=== PATIENT | male | born 1985 | race Caucasian/White ===

== ENCOUNTER 2017-04-10 22:51 | Emergency (ER) | payer OTHER ==
[~2017-04-10] VITALS: Ht 175.3 cm; Wt 90.0 kg
[2017-04-10 23:12] VITALS: TEMP 36.7; Ht 175.3 cm; Wt 90.0 kg
[2017-04-11] MEDS ORDERED: DiphenhydrAMINE HCL 50 MG/ML VIAL IV STA (00:28)
--- NOTE | 2017-04-11 00:30 | EMERGENCY ROOM VISIT NOTE ---
History Report prepared by Reed: Guido Ansari Under the Supervision of: Dr. Yamilex Caballero M.D. First contact with patient: 00:07 Chief Complaint: RECTAL BLEEDING Stated Complaint: ABDOMINAL PAIN, RECTAL BLEEDING History of Present Illness The patient is a 32 year old male who presents to the Emergency Room with complaints of intermittent rectal bleeding since yesterday. The patient states that every time that he has a bowel movement he has rectal bleeding, and he has been having watery stools. He states that he has a history of a total colectomy in 2013, and he has had J pouch surgeries, and the last one was in February. The patient states that he additionally is having abdominal pain for the past couple of days. The patient states that yesterday he passed a surgical staple in his bowel movement, and this is the third tome that this has happened. He states that his bowels have been chronically dilated, and his surgeons are trying to currently to relax his bowels. The patient states that his most recent hemoglobin was 8.4, and he states that he is not currently on blood thinners. He states that he has had a transfusion before after having bleeding from his ileostomy. The patient is denying any recent fevers. He states that he is currently on TPN. Source of History: patient Onset: yesterday Position: other (rectum) Quality: other (bleeding) Timing: intermittent Associated Symptoms: + abdominal pain, No fevers Review of Systems See HPI for pertinent positives & negatives. A total of 10 systems reviewed and were otherwise negative. Past Medical & Surgical Medical Problems: (1) On total parenteral nutrition (TPN) Surgical Problems: (1) H/O total colectomy Social History Smoking Status: Never Smoker Marital Status: single Occupation Status: unemployed Current/Historical Medications Scheduled Tpn Infusion (Tpn Infusion), 1 EA IV DAILY Allergies Coded Allergies: Mushroom (Verified Allergy, Severe, ANAPHYLAXIS, 04/11/17) Adhesives (Verified Allergy, Intermediate, RASH, 04/11/17) Physical Exam Vital Signs Date Time Temp Pulse Resp B/P (MAP) Pulse Ox O2 Delivery O2 Flow Rate FiO2 04/11/17 03:37 80 16 123/74 97 04/11/17 02:42 81 16 120/62 97 Room Air 04/11/17 01:41 94 16 113/68 99 Room Air 04/11/17 00:46 94 16 113/77 98 Room Air 04/10/17 23:12 36.7 95 18 145/93 99 Room Air Physical Exam Vital signs reviewed. General: Well-appearing male, in no significant distress. He has a TPN pump. HEENT: No scleral icterus, PERRLA, neck supple. Atraumatic. Cardiovascular: Regular rate and rhythm, no extra sounds. Pulmonary: Clear to auscultation bilaterally, normal work of breathing. Abdomen: Some post-surgical changes to the abdominal wall. Mildly tender to the right lower quadrant. Soft, nondistended, positive bowel sounds. Musculoskeletal: Atraumatic, no peripheral edema. Neurologic: Patient awake alert and oriented x 3 Skin: Warm, dry, no rash Medical Decision & Procedures Laboratory Results 04/11/17 00:34 Red Blood Count 3.42, Mean Corpuscular Volume 78.1, Mean Corpuscular Hemoglobin 24.6, Mean Corpuscular Hemoglobin Concent 31.5, Mean Platelet Volume 9.2, Neutrophils (%) (Auto) 60.3, Lymphocytes (%) (Auto) 26.9, Monocytes (%) (Auto) 10.1, Eosinophils (%) (Auto) 1.7, Basophils (%) (Auto) 0.6, Neutrophils # (Auto ) 4.97, Lymphocytes # (Auto) 2.21, Monocytes # (Auto) 0.83, Eosinophils # (Auto ) 0.14, Basophils # (Auto) 0.05 04/11/17 00:34 Test 04/11/17 00:34 04/11/17 01:26 White Blood Count 8.23 K/uL (4.8-10.8) Red Blood Count 3.42 M/uL (4.7-6.1) Hemoglobin 8.4 g/dL (14.0-18.0) Hematocrit 26.7 % (42-52) Mean Corpuscular Volume 78.1 fL (80-100) Mean Corpuscular Hemoglobin 24.6 pg (25-34) Mean Corpuscular Hemoglobin Concent 31.5 g/dl (32-36) Platelet Count 394 K/uL (130-400) Mean Platelet Volume 9.2 fL (7.4-10.4) Neutrophils (%) (Auto) 60.3 % Lymphocytes (%) (Auto) 26.9 % Monocytes (%) (Auto) 10.1 % Eosinophils (%) (Auto) 1.7 % Basophils (%) (Auto) 0.6 % Neutrophils # (Auto) 4.97 K/uL (1.4-6.5) Lymphocytes # (Auto) 2.21 K/uL (1.2-3.4) Monocytes # (Auto) 0.83 K/uL (0.11-0.59) Eosinophils # (Auto) 0.14 K/uL (0-0.5) Basophils # (Auto) 0.05 K/uL (0-0.2) RDW Standard Deviation 41.5 fL (36.4-46.3) RDW Coefficient of Variation 14.5 % (11.5-14.5) Immature Granulocyte % (Auto) 0.4 % Immature Granulocyte # (Auto) 0.03 K/uL (0.00-0.02) Polychromasia 1+ Anion Gap 6.0 mmol/L (3-11) Est Creatinine Clear Calc Drug Dose 151.7 ml/min Estimated GFR () 139.7 Estimated GFR (Non- 120.5 BUN/Creatinine Ratio 17.2 (10-20) Calcium Level 8.8 mg/dl (8.5-10.1) Total Bilirubin 0.4 mg/dl (0.2-1) Direct Bilirubin < 0.1 mg/dl (0-0.2) Aspartate Amino Transf (AST/SGOT) 9 U/L (15-37) Alanine Aminotransferase (ALT/SGPT) 23 U/L (12-78) Alkaline Phosphatase 96 U/L (45-117) Total Protein 7.7 gm/dl (6.4-8.2) Albumin 3.5 gm/dl (3.4-5.0) Lipase 73 U/L (73-393) Stool Occult Blood POSITIVE (NEGATIVE) Laboratory results per my review. Medications Administered Medications (Trade) Dose Ordered Sig/Tiffany Route Start Time Stop Time Status Last Admin Dose Admin Diphenhydramine HCl (Benadryl Inj) 25 mg NOW STAT IV 04/11/17 00:28 04/11/17 00:29 DC 04/11/17 00:44 25 MG Morphine Sulfate (MoRPHine SULFATE INJ) 4 mg NOW STAT IV 04/11/17 01:37 2/1/18 01:38 DC 04/11/17 01:43 4 MG Ondansetron HCl (Zofran Inj) 4 mg NOW STAT IV 04/11/17 01:37 04/11/17 01:38 DC 04/11/17 01:42 4 MG ECG Indication: abdominal pain Rate (beats per minute): 83 Rhythm: normal sinus, other (Sinus arrhythmia) Findings: no acute ischemic change, no ectopy Change: Patient's electrocardiogram interpreted by me. ED Course 0020: Past medical records reviewed. The patient was evaluated in room C12. A complete history and physical examination was performed. 0028: Benadryl 25mg IV 0137: Zofran 4mg IV, Morphine Sulfate 4mg IV 0316: Upon reevaluation, the patient appeared to have improvement of his symptoms. I discussed findings with him. He verbalized agreement of the treatment plan. He was discharged home. Medical Decision Differential diagnosis include: anastomotic leak, intraabdominal abscess, GI bleed, acute on chronic pain, C Diff, and inflammatory bowel disease. This patient was evaluated and appeared to be in no significant distress. IV access was obtained and laboratory work was drawn. The patient's medical history is complicated. Documentation from his previous hospitalization was reviewed. Patient's laboratory work today reveals a hemoglobin of 8.4. This is similar to previous. The patient does have guaiac positive stools however this is well documented and has been evaluated previously. The patient's family states he has had many CT scans in the past. He does have some mild tenderness however he states this is pain he has experienced previously. The patient has started with a new gastroenterology and colorectal surgery service at [facility]. He has had multiple narcotic and benzodiazepine prescriptions written this year. I do feel he is stable at this time as he is afebrile with a normal white blood cell count. A stool was sent for testing and is negative for C. difficile. Cultures are pending. The patient has requested discharge. He did receive IV morphine and Zofran per his request. He did request additional pain shot prior to discharge however this was declined. I do have concerns regarding this patient's multiple physician consultations. We have not seen this patient previously and he is familiar to both [place] and [facility]. This time I feel he is stable and he was discharged to his father's care. He was advised to return to the ER for worsening of symptoms or any medical concerns. [place] Drug Monitoring Program Search Results: patient reviewed within database Drug Monitoring Findings: The patient got 2 prescriptions for Valium in March. He had multiple prescriptions filled in 2016, and he got a Dilaudid prescription on March 08 Medication Reconcilliation Current Medication List: was personally reviewed by me Blood Pressure Screening Patient's blood pressure: Normal blood pressure Impression Primary Impression: Abdominal pain Additional Impression: Rectal bleeding Scribe Attestation The scribe's documentation has been prepared under my direction and personally reviewed by me in its entirety. I confirm that the note above accurately reflects all work, treatment, procedures, and medical decision making performed by me. Departure Information Dispostion Home / Self-Care Referrals Jamison Mosley M.D. (PCP) Forms HOME CARE DOCUMENTATION FORM, IMPORTANT VISIT INFORMATION, WORK / SCHOOL INSTRUCTIONS Patient Instructions My [facility] [employer] Additional Instructions Diagnosis: Rectal bleeding, abdominal pain Please monitor for significant blood loss by rectum. Call your analysis director later this morning to arrange close follow-up. Continue your medications as prescribed. Return to the emergency department for worsening of symptoms or any medical concerns. Problem Qualifiers
[2017-04-11 00:44] LABS: BASO % 0.6 %; BASO ABS # 0.05 K/uL (0-0.2); EOS % 1.7 %; EOS ABS # 0.14 K/uL (0-0.5); HEMATOCRIT 26.7 % (42-52); HEMOGLOBIN 8.4 g/dL (14.0-18.0); IG# 0.03 K/uL (0.00-0.02); LYMPH % 26.9 %; LYMPH ABS # 2.21 K/uL (1.2-3.4); MEAN CELL VOLUME 78.1 fL (80-100); MEAN CORPUSCULAR HEMOGLOBIN 24.6 pg (25-34); MEAN CORPUSCULAR HGB CONC 31.5 g/dl (32-36); MEAN PLATELET VOLUME 9.2 fL (7.4-10.4); MONO % 10.1 %; MONO ABS # 0.83 K/uL (0.11-0.59); NEUT % 60.3 %; NEUT ABS # 4.97 K/uL (1.4-6.5); PLATELET COUNT 394 K/uL (130-400); RED CELL DISTRIBUTION WIDTH CV 14.5 % (11.5-14.5); RED CELL DISTRIBUTION WIDTH SD 41.5 fL (36.4-46.3); WHITE BLOOD COUNT 8.23 K/uL (4.8-10.8)
[2017-04-11 01:01] LABS: ALBUMIN 3.5 gm/dl (3.4-5.0); ALT/SGPT 23 U/L (12-78); AST/SGOT 9 U/L (15-37); BLOOD UREA NITROGEN 14 mg/dl (7-18); CALCIUM 8.8 mg/dl (8.5-10.1); CARBON DIOXIDE 26 mmol/L (21-32); CREATININE 0.79 mg/dl (0.60-1.40); GLUCOSE 82 mg/dl (70-99); LIPASE 73 U/L (73-393); POTASSIUM 3.7 mmol/L (3.5-5.1); SODIUM 138 mmol/L (136-145)
[2017-04-11 01:04] LABS: ALKALINE PHOSPHATASE 96 U/L (45-117); TOTAL PROTEIN 7.7 gm/dl (6.4-8.2)
[2017-04-11] MEDS ORDERED: MoRPHine SULFATE 4 MG/ML 1 ML CARP\\VIAL IV STA (01:37)
[2017-04-11] MEDS ORDERED: ONDANSETRON INJ 2 MG/ML 2 ML VIAL IV STA (01:37)
[2017-04-11] MEDS ORDERED: TPN IV (02:04)
[2017-04-11 03:37] VITALS: BP 123/74; PULSE 80; O2SAT 97
== END 2017-04-11 03:37 | disposition home or self-care (01) ==
LOC: C.EDB 22:53
DX: R10.9 Unspecified abdominal pain (principal); K62.5 Hemorrhage of anus and rectum

== ENCOUNTER 2017-04-16 18:56 | Emergency (ER) | payer OTHER ==
[~2017-04-16] VITALS: Ht 175.3 cm; Wt 87.0 kg
[~2017-04-16 18:56] MED LIST: TPN IV
[2017-04-16 19:08] VITALS: TEMP 36.7; Ht 175.3 cm; Wt 87.0 kg
[2017-04-16] MEDS ORDERED: MoRPHine SULFATE 4 MG/ML 1 ML CARP\\VIAL IV STA ×2 (19:29→22:31)
[2017-04-16] MEDS ORDERED: DiphenhydrAMINE HCL 50 MG/ML VIAL IV STA (19:29)
[2017-04-16] MEDS ORDERED: SODIUM CHLORIDE 0.9% 1000ML 1,000 ML IV STA (19:29)
[2017-04-16] MEDS ORDERED: ONDANSETRON INJ 2 MG/ML 2 ML VIAL IV STA (19:29)
--- NOTE | 2017-04-16 19:31 | EMERGENCY ROOM VISIT NOTE ---
History Report prepared by Reed: Gulshan Richard Under the Supervision of: Dr. Olaf Travis M.D. First contact with patient: 19:21 Chief Complaint: GI ASSESSMENT Stated Complaint: ABDOMINAL PAIN RECTAL BLEEDING History of Present Illness The patient is a 32 year old male who presents to the Emergency Room with complaints of intermittent rectal bleeding beginning a month ago. The patient states that he has a history of Crohn's disease, and had surgery on February, to have a J pouch placed and his ileostomy taken out. He notes that since then, he has been intermittently bleeding rectally. He reports that his hemoglobin was 8.4 the last time it was checked. He also complains of abdominal pain, lightheadedness, nausea, and dilated bowels. He denies any fever, vomiting , and trauma. He reports that he passed a surgical staple a week ago and takes TPN every day. The patient states that he has had a PICC line in place for the past few weeks. Source of History: patient Onset: a month ago Position: other (rectum) Quality: other (bleeding) Timing: intermittent Associated Symptoms: + nausea, + abdominal pain, No fevers, No vomiting Note: He notes that his hemoglobin was 8.4 when it was last checked. He also complains of lightheadedness and dilated bowels. He denies any trauma. Review of Systems See HPI for pertinent positives & negatives. A total of 10 systems reviewed and were otherwise negative. Past Medical & Surgical Medical Problems: (1) Crohns disease (2) On total parenteral nutrition (TPN) (3) PICC (peripherally inserted central catheter) in place Surgical Problems: (1) H/O total colectomy Old medical records were reviewed. Nurse's notes were reviewed and I agree with. Family History No pertinent family history stated. Social History Smoking Status: Never Smoker Marital Status: single Occupation Status: unemployed Current/Historical Medications Scheduled Tpn Infusion (Tpn Infusion), 1 EA IV DAILY Allergies Coded Allergies: Mushroom (Verified Allergy, Severe, ANAPHYLAXIS, 04/16/17) Adhesives (Verified Allergy, Intermediate, RASH, 04/16/17) Physical Exam Vital Signs Date Time Temp Pulse Resp B/P (MAP) Pulse Ox O2 Delivery O2 Flow Rate FiO2 04/16/17 23:11 94 125/74 98 04/16/17 21:58 71 117/64 99 Room Air 04/16/17 20:15 74 104/63 100 04/16/17 19:08 36.7 102 18 121/71 97 Room Air Physical Exam General: Non-ill appearing young male in no acute distress. HEENT: Normal cephalic atraumatic. Pupils are equal round and reactive to light. Extraocular movements are intact. Oropharynx is pink with moist mucous membranes. No swelling of the mouth lips or tongue. Neck: Supple with a midline trachea. No meningeal signs or stiffness, no JVD or bruits. No Stridor. Chest: Clear to auscultation bilaterally. No wheezes or rhonchi. No increased work of breathing. Heart: regular rate and rhythm. Abdomen: Soft, nondistended without rebound guarding or rigidity. Well healing surgical incision, moderately diffusely tender, no peritonitis. Extremities: No cyanosis clubbing or edema. No calf tenderness or assymetry. PICC line in left arm, not red or swollen. Spine/Back. Non tender to palpation. No CVA tenderness Skin: Good turgor without rashes. Neurologic exam: Cranial nerves two through 12 are intact. Motor and sensation are intact and symmetrical throughout. Medical Decision & Procedures Laboratory Results 04/16/17 19:42 Red Blood Count 3.65, Mean Corpuscular Volume 76.7, Mean Corpuscular Hemoglobin 24.4, Mean Corpuscular Hemoglobin Concent 31.8, Mean Platelet Volume 9.1, Neutrophils (%) (Auto) 60.8, Lymphocytes (%) (Auto) 26.7, Monocytes (%) (Auto) 9.5, Eosinophils (%) (Auto) 2.1, Basophils (%) (Auto) 0.6, Neutrophils # (Auto) 4.31, Lymphocytes # (Auto) 1.89, Monocytes # (Auto) 0.67, Eosinophils # (Auto) 0.15, Basophils # (Auto) 0.04 04/16/17 19:42 Test 04/16/17 19:42 White Blood Count 7.08 K/uL (4.8-10.8) Red Blood Count 3.65 M/uL (4.7-6.1) Hemoglobin 8.9 g/dL (14.0-18.0) Hematocrit 28.0 % (42-52) Mean Corpuscular Volume 76.7 fL (80-100) Mean Corpuscular Hemoglobin 24.4 pg (25-34) Mean Corpuscular Hemoglobin Concent 31.8 g/dl (32-36) Platelet Count 397 K/uL (130-400) Mean Platelet Volume 9.1 fL (7.4-10.4) Neutrophils (%) (Auto) 60.8 % Lymphocytes (%) (Auto) 26.7 % Monocytes (%) (Auto) 9.5 % Eosinophils (%) (Auto) 2.1 % Basophils (%) (Auto) 0.6 % Neutrophils # (Auto) 4.31 K/uL (1.4-6.5) Lymphocytes # (Auto) 1.89 K/uL (1.2-3.4) Monocytes # (Auto) 0.67 K/uL (0.11-0.59) Eosinophils # (Auto) 0.15 K/uL (0-0.5) Basophils # (Auto) 0.04 K/uL (0-0.2) RDW Standard Deviation 41.4 fL (36.4-46.3) RDW Coefficient of Variation 14.5 % (11.5-14.5) Immature Granulocyte % (Auto) 0.3 % Immature Granulocyte # (Auto) 0.02 K/uL (0.00-0.02) Polychromasia 1+ Anisocytosis PRESENT Prothrombin Time 10.9 SECONDS (9.0-12.0) Prothromb Time International Ratio 1.0 (0.9-1.1) Activated Partial Thromboplast Time 24.9 SECONDS (21.0-31.0) Partial Thromboplastin Ratio 1.0 Anion Gap 9.0 mmol/L (3-11) Est Creatinine Clear Calc Drug Dose 157.3 ml/min Estimated GFR () 142.7 Estimated GFR (Non- 123.1 BUN/Creatinine Ratio 16.2 (10-20) Calcium Level 9.6 mg/dl (8.5-10.1) Total Bilirubin 0.8 mg/dl (0.2-1) Direct Bilirubin 0.2 mg/dl (0-0.2) Aspartate Amino Transf (AST/SGOT) 14 U/L (15-37) Alanine Aminotransferase (ALT/SGPT) 29 U/L (12-78) Alkaline Phosphatase 106 U/L (45-117) Total Protein 8.5 gm/dl (6.4-8.2) Albumin 3.9 gm/dl (3.4-5.0) Lipase 79 U/L (73-393) Laboratory studies as stated above per my review. Medications Administered Medications (Trade) Dose Ordered Sig/Tiffany Route Start Time Stop Time Status Last Admin Dose Admin Sodium Chloride 1,000 ml @ 999 mls/hr Q1H1M STAT IV 04/16/17 19:29 04/16/17 20:29 DC 04/16/17 19:29 999 MLS/HR Ondansetron HCl (Zofran Inj) 4 mg NOW STAT IV 04/16/17 19:29 04/16/17 19:31 DC 04/16/17 19:49 4 MG Morphine Sulfate (MoRPHine SULFATE INJ) 4 mg NOW STAT IV 04/16/17 19:29 04/16/17 19:31 DC 04/16/17 19:49 4 MG Diphenhydramine HCl (Benadryl Inj) 25 mg NOW STAT IV 04/16/17 19:29 04/16/17 19:31 DC 04/16/17 19:49 25 MG Morphine Sulfate (MoRPHine SULFATE INJ) 4 mg NOW STAT IV 04/16/17 22:31 04/16/17 22:32 DC 04/16/17 22:51 4 MG ED Course 1921: Past medical records reviewed. The patient was evaluated in room A12, and a complete history and physical examination were performed. 1928: Benadryl Inj 25mg IV, Morphine Sulfate 4mg IV, Zofran Inj 4mg IV, Sodium Chloride 1000 ml @ 999 mls/hr IV 2009: I rechecked the patient. He is resting comfortably. 2230: Morphine Sulfate 4mg IV 2231: I reevaluated and updated the patient. He refuses a rectal exam and wants to go home. I offered to call Bryan, but the patient declined. 0: Upon reevaluation, the patient is stable. I discussed the results and treatment plan with him. He verbalized agreement of the treatment plan. The patient was discharged home. Medical Decision Differential diagnoses include: GI bleed, anemia, Crohn's complication, and post op complications. This patient comes in as described above. He has a history of Crohn's disease with recent surgery. Since the surgery he's had intermittent rectal bleeding. He was seen here about a month ago and had a hemoglobin 8.3. He looks well on exam and has stable vital signs. He has no evidence to suggest wound infection. He did decline a rectal exam. He has a PICC line his left arm and blood work was obtained. He has no white count or fever to suggest infection. His hemoglobin is 8.9 which is slightly up for him. He has no acute electrolyte or metabolic abnormalities. She did receive IV Benadryl as he says he gets this as he is allergic monitor leads. He also received IV morphine and IV Zofran and is feeling much better. His abdomen remained benign. He did receive additional IV morphine prior to discharge as per his request. I talked to him at length he strongly desires to go home. He says he is reassured that his hemoglobin is 8.9. I offered to try to talk to Annette who is in the process of seen him but he declined. I encouraged him to follow his regular doctor next 1-2 days and return if: increasing pain or bleeding, worsening symptoms, any new problems concerns. Medication Reconcilliation Current Medication List: was personally reviewed by me Blood Pressure Screening Patient's blood pressure: Normal blood pressure Blood pressure disposition: Did not require urgent referral Impression Primary Impression: Rectal bleeding Additional Impression: Crohns disease Scribe Attestation The scribe's documentation has been prepared under my direction and personally reviewed by me in its entirety. I confirm that the note above accurately reflects all work, treatment, procedures, and medical decision making performed by me. Departure Information Dispostion Home / Self-Care Referrals Jamison Mosley M.D. (PCP) Forms HOME CARE DOCUMENTATION FORM, IMPORTANT VISIT INFORMATION Patient Instructions My [facility] Additional Instructions Rest. Drink plenty of fluids. Return if: Increasing pain or bleeding, worsening symptoms, lightheadedness or dizziness, any new problems or concerns Follow-up with your doctor tomorrow for recheck Problem Qualifiers
[2017-04-16 20:01] LABS: BASO % 0.6 %; BASO ABS # 0.04 K/uL (0-0.2); EOS % 2.1 %; EOS ABS # 0.15 K/uL (0-0.5); HEMOGLOBIN 8.9 g/dL (14.0-18.0); IG# 0.02 K/uL (0.00-0.02); LYMPH % 26.7 %; LYMPH ABS # 1.89 K/uL (1.2-3.4); MEAN CELL VOLUME 76.7 fL (80-100); MEAN CORPUSCULAR HEMOGLOBIN 24.4 pg (25-34); MEAN CORPUSCULAR HGB CONC 31.8 g/dl (32-36); MEAN PLATELET VOLUME 9.1 fL (7.4-10.4); MONO % 9.5 %; MONO ABS # 0.67 K/uL (0.11-0.59); NEUT % 60.8 %; NEUT ABS # 4.31 K/uL (1.4-6.5); PLATELET COUNT 397 K/uL (130-400); RED CELL DISTRIBUTION WIDTH CV 14.5 % (11.5-14.5); RED CELL DISTRIBUTION WIDTH SD 41.4 fL (36.4-46.3); WHITE BLOOD COUNT 7.08 K/uL (4.8-10.8)
[2017-04-16 20:10] LABS: PTT PATIENT 24.9 SECONDS (21.0-31.0)
[2017-04-16 20:25] LABS: ALBUMIN 3.9 gm/dl (3.4-5.0); CALCIUM 9.6 mg/dl (8.5-10.1); CREATININE 0.75 mg/dl (0.60-1.40); POTASSIUM 3.6 mmol/L (3.5-5.1)
[2017-04-16 20:28] LABS: TOTAL PROTEIN 8.5 gm/dl (6.4-8.2)
[2017-04-16 23:11] VITALS: BP 125/74; PULSE 94; O2SAT 98
== END 2017-04-16 23:12 | disposition home or self-care (01) ==
LOC: C.EDB 18:58 → C.EDA 23:12
DX: K62.5 Hemorrhage of anus and rectum (principal); K50.90 Crohn's disease, unspecified, without complications; Z98.890 Other specified postprocedural states; Z90.49 Acquired absence of other specified parts of digestive tract

== ENCOUNTER 2017-04-20 15:39 | Emergency (ER) | payer OTHER ==
[~2017-04-20] VITALS: Ht 175.3 cm; Wt 87.0 kg
[2017-04-20 15:44] VITALS: TEMP 36.2; Ht 175.3 cm; Wt 87.0 kg
[2017-04-20] MEDS ORDERED: ONDANSETRON INJ 2 MG/ML 2 ML VIAL IV STA (15:55)
[2017-04-20] MEDS ORDERED: SODIUM CHLORIDE 0.9% 1000ML 1,000 ML IV STA (15:55)
[2017-04-20] MEDS ORDERED: MoRPHine SULFATE 10 MG/ML CARP/VIAL IV STA (15:55)
[2017-04-20] MEDS ORDERED: OPTIRAY 320 IV PRN (16:00)
[2017-04-20] MEDS ORDERED: MoRPHine SULFATE 4 MG/ML 1 ML CARP\\VIAL ONE (16:13)
[2017-04-20] MEDS ORDERED: MoRPHine SULFATE 2 MG/ML CARP ONE (16:13)
[2017-04-20 17:04] LABS: ISTAT CREATININE 0.7 mg/dl (0.6-1.3); ISTAT IONIZED CALCIUM 1.16 mmol/l (1.12-1.32); ISTAT POTASSIUM 3.7 mEq/L (3.3-5.0)
[2017-04-20 17:24] LABS: ALBUMIN 3.9 gm/dl (3.4-5.0); ALT/SGPT 24 U/L (12-78); AST/SGOT 13 U/L (15-37); BLOOD UREA NITROGEN 12 mg/dl (7-18); CALCIUM 9.7 mg/dl (8.5-10.1); CARBON DIOXIDE 21 mmol/L (21-32); CREATININE 0.77 mg/dl (0.60-1.40); GLUCOSE 92 mg/dl (70-99); LIPASE 79 U/L (73-393); POTASSIUM 3.7 mmol/L (3.5-5.1); SODIUM 137 mmol/L (136-145)
[2017-04-20 17:26] LABS: ALKALINE PHOSPHATASE 108 U/L (45-117); TOTAL PROTEIN 8.4 gm/dl (6.4-8.2)
--- NOTE | 2017-04-20 17:33 | DIAGNOSTIC IMAGING REPORT ---
ABD/PELVIS IV CONTRAST ONLY CLINICAL HISTORY: 32 years-old Male presenting with diffuse lower abd pain, history of appendectomy. TECHNIQUE: Multidetector CT of the abdomen and pelvis was performed after the administration of intravenous contrast. IV contrast: 90 mL of Optiray 320. A dose lowering technique was used consistent with the principles of ALARA (as low as reasonably achievable). COMPARISON: None. CT DOSE (mGy.cm): The estimated cumulative dose is 424.67 mGy.cm. FINDINGS: Family Resource Coordinator topogram: Gaseous distention of bowel. Lung bases: Minimal basilar opacities, likely atelectasis. Normal heart size. No pericardial or pleural effusion. Liver: Normal morphology. No liver lesion. Patent hepatic vasculature. Biliary: Mild biliary ductal prominence likely a reservoir effect in the post cholecystectomy state. Gallbladder surgically absent. Pancreas: Normal. Spleen: Normal. Adrenal glands: Normal. Kidneys and ureters: Well-defined hypodensities in the kidneys, some too small to characterize, likely cysts no nephrolithiasis. No hydronephrosis. Normal ureters. Bladder: Incompletely evaluated secondary to underdistention. Pelvic organs: Prostate and seminal vesicles normal. Bowel: Suspected postsurgical changes of total proctocolectomy and ileoanal pouch anastomosis. Intramural fat deposition in the distal bowel could suggest chronic inflammatory change. Mild perirenal inflammatory change evident. Additional widely patent enteroenteric anastomoses in the right mid abdomen. The small bowel anastomoses are immediately subjacent to inflammatory changes of the abdominal wall. Immediate apposition of the small bowel loops to the anterior peritoneum could suggest adhesions in this region. No bowel obstruction. Mild small bowel wall thickening without perienteric inflammatory change suggested in one of the superior pelvic loops (series 3 image [id number]). Peritoneal cavity: No free fluid or intraperitoneal gas. Lymph nodes: No enlarged lymph nodes in the abdomen or pelvis. Vasculature: Aorta and IVC patent and normal in caliber. Abdominal wall: Inflammatory changes with skin thickening in the right mid abdomen. Inflammatory change extends to the rectus abdominis. This could represent postsurgical change or a fistula. Musculoskeletal: Normal. IMPRESSION: 1. Correlation with the patient's surgical history is necessary. However, apparent extensive post surgical changes of the bowel with suspected total proctocolectomy and ileoanal pouch anastomosis. No bowel obstruction. 2. Subtle small bowel wall thickening without perienteric inflammatory change suggested in one of the superior pelvic loops. This could suggest chronic change/fibrostenotic disease without functional obstruction. 3. Inflammatory changes of the right mid abdominal wall extending to the abdominal wall musculature immediately overlying several loops of small bowel which appear adhesed to the anterior peritoneum. This could represent postsurgical change, cellulitis, or fistula. Correlate clinically. Lack of oral contrast limits evaluation for fistula. 4. Possible inflammatory changes in the perianal region, which could suggest active inflammation. 5. Intramural fat deposition in the distal bowel immediately proximal to the presumed ileoanal pouch could suggest chronic inflammation. 6. No evidence of abscess. Electronically signed by: Brooks Chase M.D. 04/20/2017 5:32 PM Dictated Date/Time: 04/20/2017 5:23 PM
[2017-04-20] MEDS ORDERED: MoRPHine SULFATE 4 MG/ML 1 ML CARP\\VIAL IV STA (17:46)
[2017-04-20] MEDS ORDERED: DiphenhydrAMINE HCL 50 MG/ML VIAL IV STA (17:46)
[2017-04-20 18:03] LABS: BASO % 0.6 %; BASO ABS # 0.04 K/uL (0-0.2); EOS % 1.6 %; EOS ABS # 0.11 K/uL (0-0.5); HEMATOCRIT 25.8 % (42-52); IG# 0.02 K/uL (0.00-0.02); LYMPH % 25.9 %; LYMPH ABS # 1.82 K/uL (1.2-3.4); MEAN CELL VOLUME 76.6 fL (80-100); MEAN CORPUSCULAR HEMOGLOBIN 23.7 pg (25-34); MEAN PLATELET VOLUME 8.6 fL (7.4-10.4); MONO % 9.5 %; MONO ABS # 0.67 K/uL (0.11-0.59); NEUT % 62.1 %; NEUT ABS # 4.38 K/uL (1.4-6.5); PLATELET COUNT 327 K/uL (130-400); RED CELL DISTRIBUTION WIDTH CV 14.9 % (11.5-14.5); WHITE BLOOD COUNT 7.04 K/uL (4.8-10.8)
[2017-04-20 18:57] VITALS: BP 122/67; PULSE 90; O2SAT 95
--- NOTE | 2017-04-20 20:39 | EMERGENCY ROOM VISIT NOTE ---
History Report prepared by Reed: Isa Julien Under the Supervision of: Dr. Rahul Muñoz D.O. First contact with patient: 15:48 Chief Complaint: ABDOMINAL PAIN Stated Complaint: ABDOMINAL PAIN, CROHNS Nursing Triage Summary: pt to the ED with lower abd pain, last BM was last night pt has chron's and has a j pouch + nausea has had blood in stool History of Present Illness The patient is a 32 year old male who presents to the Emergency Room with complaints of persistent abdominal pain since this morning. He currently rates his pain an 8/10 in severity. He has a history of John's disease. He is currently following up with [facility]. He has a PICC line. His last normal bowel movement was last night. He has a J pouch and normally goes every hour, though he has not been able to pass gas or pass a stool since last night. He notes the J pouch was installed three months ago. He notes a mild cough. He has a history of cholecystectomy, appendectomy, and total proctocolectomy and ileal anal anastomosis. Pt denies fevers, chest pain, shortness of breath, nausea, vomiting, pain with urination, and melena. Source of History: patient Onset: since this morning Position: abdomen Symptom Intensity: 8/10 Timing: other (persistent) Associated Symptoms: + cough (mild), No fevers, No chest pain, No SOB, No nausea, No vomiting, No melena, No urinary symptoms (pain with urination) Note: He cannot pass gas or stools. Review of Systems See HPI for pertinent positives & negatives. A total of 10 systems reviewed and were otherwise negative. 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 Surgical Problems: (1) H/O total colectomy Family History Cancer Hypertension Social History Smoking Status: Never Smoker Smokeless Tobacco Use: No Alcohol Use: none Drug Use: none Marital Status: single Housing Status: lives with family Occupation Status: unemployed Current/Historical Medications Scheduled Tpn Infusion (Tpn Infusion), 1 EA IV DAILY Allergies Coded Allergies: Mushroom (Verified Allergy, Severe, ANAPHYLAXIS, 04/20/17) Adhesives (Verified Allergy, Intermediate, RASH, 04/20/17) Physical Exam Vital Signs Date Time Temp Pulse Resp B/P (MAP) Pulse Ox O2 Delivery O2 Flow Rate FiO2 04/20/17 18:57 90 16 122/67 95 04/20/17 17:00 97 18 109/62 96 Room Air 04/20/17 15:44 36.2 94 16 114/64 95 Room Air Physical Exam GENERAL: Sitting up in bed, alert, well appearing, well nourished,in minimal distress, non-toxic EYE EXAM: normal conjunctiva. OROPHARYNX: no exudate, no erythema, lips, buccal mucosa, and tongue normal and mucous membranes are moist NECK: supple, no nuchal rigidity, no adenopathy, non-tender LUNGS: Clear to auscultation. Normal chest wall mechanics HEART: no murmurs, S1 normal and S2 normal ABDOMEN: abdomen soft, normo-active bowel sounds, no masses, no rebound or guarding. Multiple healed abdominal incisions. Diffuse mild tenderness, worse on the right BACK: Back is symmetrical on inspection and there is no deformity, no midline tenderness, no CVA tenderness. SKIN: no rashes and no bruising UPPER EXTREMITIES: upper extremities are grossly normal. PICC line located in the left upper extremity LOWER EXTREMITIES: No pitting edema. NEURO EXAM: Normal sensorium, cranial nerves II-XII grossly intact, normal speech, no gross weakness of arms, no gross weakness of legs. Medical Decision & Procedures ER Provider Diagnostic Interpretation: Radiology results as stated below per my review and the radiologist's interpretation: ABD/PELVIS IV CONTRAST ONLY CLINICAL HISTORY: 32 years-old Male presenting with diffuse lower abd pain, history of appendectomy. TECHNIQUE: Multidetector CT of the abdomen and pelvis was performed after the administration of intravenous contrast. IV contrast: 90 mL of Optiray 320. A dose lowering technique was used consistent with the principles of ALARA (as low as reasonably achievable). COMPARISON: None. CT DOSE (mGy.cm): The estimated cumulative dose is 424.67 mGy.cm. FINDINGS: Ventilated Rib Fitter topogram: Gaseous distention of bowel. Lung bases: Minimal basilar opacities, likely atelectasis. Normal heart size. No pericardial or pleural effusion. Liver: Normal morphology. No liver lesion. Patent hepatic vasculature. Biliary: Mild biliary ductal prominence likely a reservoir effect in the post cholecystectomy state. Gallbladder surgically absent. Pancreas: Normal. Spleen: Normal. Adrenal glands: Normal. Kidneys and ureters: Well-defined hypodensities in the kidneys, some too small to characterize, likely cysts no nephrolithiasis. No hydronephrosis. Normal ureters. Bladder: Incompletely evaluated secondary to underdistention. Pelvic organs: Prostate and seminal vesicles normal. Bowel: Suspected postsurgical changes of total proctocolectomy and ileoanal pouch anastomosis. Intramural fat deposition in the distal bowel could suggest chronic inflammatory change. Mild perirenal inflammatory change evident. Additional widely patent enteroenteric anastomoses in the right mid abdomen. The small bowel anastomoses are immediately subjacent to inflammatory changes of the abdominal wall. Immediate apposition of the small bowel loops to the anterior peritoneum could suggest adhesions in this region. No bowel obstruction. Mild small bowel wall thickening without perienteric inflammatory change suggested in one of the superior pelvic loops (series 3 image 347). Peritoneal cavity: No free fluid or intraperitoneal gas. Lymph nodes: No enlarged lymph nodes in the abdomen or pelvis. Vasculature: Aorta and IVC patent and normal in caliber. Abdominal wall: Inflammatory changes with skin thickening in the right mid abdomen. Inflammatory change extends to the rectus abdominis. This could represent postsurgical change or a fistula. Musculoskeletal: Normal. IMPRESSION: 1. Correlation with the patient's surgical history is necessary. However, apparent extensive post surgical changes of the bowel with suspected total proctocolectomy and ileoanal pouch anastomosis. No bowel obstruction. 2. Subtle small bowel wall thickening without perienteric inflammatory change suggested in one of the superior pelvic loops. This could suggest chronic change/fibrostenotic disease without functional obstruction. 3. Inflammatory changes of the right mid abdominal wall extending to the abdominal wall musculature immediately overlying several loops of small bowel which appear adhesed to the anterior peritoneum. This could represent postsurgical change, cellulitis, or fistula. Correlate clinically. Lack of oral contrast limits evaluation for fistula. 4. Possible inflammatory changes in the perianal region, which could suggest active inflammation. 5. Intramural fat deposition in the distal bowel immediately proximal to the presumed ileoanal pouch could suggest chronic inflammation. 6. No evidence of abscess. Electronically signed by: Brooks Chase M.D. 04/20/2017 5:32 PM Dictated Date/Time: 04/20/2017 5:23 PM Laboratory Results 04/20/17 17:55 Red Blood Count 3.37, Mean Corpuscular Volume 76.6, Mean Corpuscular Hemoglobin 23.7, Mean Corpuscular Hemoglobin Concent 31.0, Mean Platelet Volume 8.6, Neutrophils (%) (Auto) 62.1, Lymphocytes (%) (Auto) 25.9, Monocytes (%) (Auto) 9.5, Eosinophils (%) (Auto) 1.6, Basophils (%) (Auto) 0.6, Neutrophils # (Auto) 4.38, Lymphocytes # (Auto) 1.82, Monocytes # (Auto) 0.67, Eosinophils # (Auto) 0.11, Basophils # (Auto) 0.04 04/20/17 16:40 Test 04/20/17 16:30 04/20/17 16:40 04/20/17 16:54 04/20/17 17:55 Urine Color YELLOW Urine Appearance CLEAR (CLEAR) Urine pH 5.0 (4.5-7.5) Urine Specific Export 1.039 (1.000-1.030) Urine Protein NEG (NEG) Urine Glucose (UA) NEG (NEG) Urine Ketones NEG (NEG) Urine Occult Blood NEG (NEG) Urine Nitrite NEG (NEG) Urine Bilirubin NEG (NEG) Urine Urobilinogen NEG (NEG) Urine Leukocyte Esterase NEG (NEG) Urine WBC (Auto) 1-5 /hpf (0-5) Urine RBC (Auto) 0-4 /hpf (0-4) Urine Hyaline Casts (Auto) 1-5 /lpf (0-5) Urine Epithelial Cells (Auto) 0-5 /lpf (0-5) Urine Bacteria (Auto) NEG (NEG) Est Creatinine Clear Calc Drug Dose 153.3 ml/min Estimated GFR () 141.1 Estimated GFR (Non- 121.8 BUN/Creatinine Ratio 16.0 (10-20) Calcium Level 9.7 mg/dl (8.5-10.1) Total Bilirubin 0.6 mg/dl (0.2-1) Direct Bilirubin < 0.1 mg/dl (0-0.2) Aspartate Amino Transf (AST/SGOT) 13 U/L (15-37) Alanine Aminotransferase (ALT/SGPT) 24 U/L (12-78) Alkaline Phosphatase 108 U/L (45-117) Total Protein 8.4 gm/dl (6.4-8.2) Albumin 3.9 gm/dl (3.4-5.0) Lipase 79 U/L (73-393) Bedside Hemoglobin 9.9 g/dl (14.0-18.0) Bedside Hematocrit 29 % (42-52) Bedside Sodium 142 mEq/L (135-144) Bedside Potassium 3.7 mEq/L (3.3-5.0) Bedside Chloride 105 mEq/L (101-112) Bedside Total CO2 23 mEq/l (24-31) Anion Gap 19.0 mmol/L (16-25) Bedside Blood Urea Nitrogen 11 mg/dl (7-18) Bedside Creatinine 0.7 mg/dl (0.6-1.3) Bedside Glucose (other) 95 mg/dl (70-99) Bedside Ionized Calcium (Leanne) 1.16 mmol/l (1.12-1.32) White Blood Count 7.04 K/uL (4.8-10.8) Red Blood Count 3.37 M/uL (4.7-6.1) Hemoglobin 8.0 g/dL (14.0-18.0) Hematocrit 25.8 % (42-52) Mean Corpuscular Volume 76.6 fL (80-100) Mean Corpuscular Hemoglobin 23.7 pg (25-34) Mean Corpuscular Hemoglobin Concent 31.0 g/dl (32-36) Platelet Count 327 K/uL (130-400) Mean Platelet Volume 8.6 fL (7.4-10.4) Neutrophils (%) (Auto) 62.1 % Lymphocytes (%) (Auto) 25.9 % Monocytes (%) (Auto) 9.5 % Eosinophils (%) (Auto) 1.6 % Basophils (%) (Auto) 0.6 % Neutrophils # (Auto) 4.38 K/uL (1.4-6.5) Lymphocytes # (Auto) 1.82 K/uL (1.2-3.4) Monocytes # (Auto) 0.67 K/uL (0.11-0.59) Eosinophils # (Auto) 0.11 K/uL (0-0.5) Basophils # (Auto) 0.04 K/uL (0-0.2) RDW Standard Deviation 42.0 fL (36.4-46.3) RDW Coefficient of Variation 14.9 % (11.5-14.5) Immature Granulocyte % (Auto) 0.3 % Immature Granulocyte # (Auto) 0.02 K/uL (0.00-0.02) Polychromasia 1+ Hypochromasia PRESENT Microcytosis PRESENT Laboratory results per my review. Medications Administered Medications (Trade) Dose Ordered Sig/Tiffany Route Start Time Stop Time Status Last Admin Dose Admin Ondansetron HCl (Zofran Inj) 4 mg NOW STAT IV 04/20/17 15:55 04/20/17 15:56 DC 04/20/17 16:39 4 MG Sodium Chloride 1,000 ml @ 999 mls/hr Q1H1M STAT IV 04/20/17 15:55 04/20/17 16:55 DC 04/20/17 16:39 999 MLS/HR Morphine Sulfate (MoRPHine SULFATE INJ) 4 mg STK-MED ONCE .ROUTE 04/20/17 16:13 04/20/17 16:14 DC 04/20/17 16:38 4 MG Morphine Sulfate (MoRPHine SULFATE INJ) 2 mg STK-MED ONCE .ROUTE 04/20/17 16:13 04/20/17 16:14 DC 04/20/17 16:39 2 MG Morphine Sulfate (MoRPHine SULFATE INJ) 4 mg NOW STAT IV 04/20/17 17:46 04/20/17 17:47 DC 04/20/17 18:50 4 MG Diphenhydramine HCl (Benadryl Inj) 25 mg NOW STAT IV 04/20/17 17:46 04/20/17 17:47 DC 04/20/17 18:50 25 MG Heparin Sodium (Porcine) (Heparin 100 Unit/ml 5ml Flush) 10 ml STK-MED ONCE .ROUTE 04/20/17 18:39 04/20/17 18:40 DC 04/20/17 18:50 10 ML ED Course ED COURSE: Vital signs were reviewed and showed normal. The patients medical record was reviewed The above diagnostic studies were performed and reviewed. ED treatments and interventions as stated above. 1551: The patient was evaluated in room C7. A complete history and physical examination was performed. 1555: Ordered Sodium Chloride 1,000 ml @ 999 mls/hr IV, Zofran 4 mg IV, and Morphine Sulfate 6 mg IV 1638: I reassessed the patient at this time. He is feeling better and resting comfortably. 1746: Ordered Benadryl 25 mg IV and Morphine Sulfate 4 mg IV 1810: I reassessed the patient at this time. He states the inflammatory changes in his mid-abdomen are all old. 1823: I spoke with Dr. Vickers, [facility] photogeologist. We discussed the patient's case. He will follow up with the him as an outpatient. 1827: Upon reevaluation, the patient is feeling better. I discussed my findings with the patient and he understands and agrees with the treatment plan. Based on the patients age, coexisting illnesses, exam and lab findings the decision to treat as an outpatient was made. The patient remained stable while under my care. The patient appeared well at the time of discharge. 1839: Ordered Heparin Sodium (Porcine) 10 ml IV Medical Decision Differential diagnoses includes but is not limited to gastritis, peptic ulcer disease, GERD, gallbladder disease, pancreatitis, small bowel obstruction, acute coronary syndrome, pericarditis, ischemic bowel, irritable bowel disease, irritable bowel syndrome, appendicitis, diverticulitis, malignancy, hernia, urinary tract infection, torsion, perforation, trauma, infectious. Patient is a 32-year-old male who presents to ER with a history of Crohn's, complete colon resection with J-pouch he is to follow with [facility] and [place] [facility] [place] who presents to ER for diffuse abdominal pain. CBC shows a persistent chronic anemia. BMP all LFTs, bilirubin and lipase is unremarkable. Previous cholecystectomy and appendectomy. UA was unremarkable. Patient was given 2 doses of IV morphine. He was also given Benadryl as he chronically takes this for a rash secondary to the PICC line tip. CT abdomen and pelvis was reviewed with the patient bedside. He notes that the findings are new including the abdominal wall findings. I discussed this with [place] [facility] [place] agree with having patient follow up as an outpatient not starting any current medications at this time. Discussed with Pt concerning signs and symptoms to watch out for. Pt was instructed to follow up with their PCP and discussed with the patient their option to return to the ED at anytime for persistent or worsening symptoms. The appropriate anticipatory guidance and out- patient management, including indications for return to the emergency department , were explained at length to the patient and understood. Medication Reconcilliation Current Medication List: was personally reviewed by me Blood Pressure Screening Patient's blood pressure: Normal blood pressure Consults Time Called: 1811 Consulting Physician: Annette Wilkins photogeologist Returned Call: 1822 I spoke with Annette Wilkins photogeologist. We discussed the patient 's case. He will follow up with the him as an outpatient. Impression Primary Impression: Inflammatory bowel disease Additional Impressions: Diffuse abdominal pain PICC (peripherally inserted central catheter) in place Scribe Attestation The scribe's documentation has been prepared under my direction and personally reviewed by me in its entirety. I confirm that the note above accurately reflects all work, treatment, procedures, and medical decision making performed by me. Departure Information Dispostion Home / Self-Care Referrals Jamison Mosley M.D. (PCP) Forms Call Back Authorization, HOME CARE DOCUMENTATION FORM, IMPORTANT VISIT INFORMATION Patient Instructions ED Inflam Bowel Disease Crohn, [facility] Additional Instructions Please follow up with your primary care doctor with in the next 24 hours. Any worsening of your symptoms, please return to the ED immediately. This includes any fevers greater than 100.4, worsening pain, chest pain, shortness breath, persistent nausea, vomiting, unable to eat or drink, or any other concerning signs or symptoms from your standpoint. Please take Tylenol as needed for pain. Please follow up with GI as soon as possible. Problem Qualifiers
== END 2017-04-20 18:59 | disposition home or self-care (01) ==
LOC: C.EDB 15:40 → C.EDC 18:59
DX: K63.9 Disease of intestine, unspecified (principal); R10.30 Lower abdominal pain, unspecified; Z95.9 Presence of cardiac and vascular implant and graft, unspecified; K50.90 Crohn's disease, unspecified, without complications; Z93.4 Other artificial openings of gastrointestinal tract status; Z79.899 Other long term (current) drug therapy; Z80.9 Family history of malignant neoplasm, unspecified; Z82.49 Family history of ischemic heart disease and other diseases of the circulatory system; Z91.018 Allergy to other foods; Z91.048 Other nonmedicinal substance allergy status

== ENCOUNTER 2017-04-22 11:47 | Inpatient (IN) | payer OTHER ==
[~2017-04-22] VITALS: Ht 175.3 cm; Wt 88.7 kg
[2017-04-22] MEDS ORDERED: ONDANSETRON INJ 2 MG/ML 2 ML VIAL IV STA (12:34)
[2017-04-22] MEDS ORDERED: MoRPHine SULFATE 4 MG/ML 1 ML CARP\\VIAL IV STA ×2 (12:34→13:42)
[2017-04-22 12:56] LABS: BASO % 0.5 %; BASO ABS # 0.03 K/uL (0-0.2); EOS % 2.1 %; EOS ABS # 0.13 K/uL (0-0.5); HEMATOCRIT 26.9 % (42-52); HEMOGLOBIN 8.5 g/dL (14.0-18.0); IG# 0.03 K/uL (0.00-0.02); LYMPH % 21.4 %; MEAN CELL VOLUME 75.4 fL (80-100); MEAN CORPUSCULAR HEMOGLOBIN 23.8 pg (25-34); MEAN CORPUSCULAR HGB CONC 31.6 g/dl (32-36); MEAN PLATELET VOLUME 8.7 fL (7.4-10.4); MONO % 8.7 %; MONO ABS # 0.53 K/uL (0.11-0.59); NEUT % 66.8 %; NEUT ABS # 4.05 K/uL (1.4-6.5); PLATELET COUNT 353 K/uL (130-400); RED CELL DISTRIBUTION WIDTH CV 14.6 % (11.5-14.5); RED CELL DISTRIBUTION WIDTH SD 40.6 fL (36.4-46.3); WHITE BLOOD COUNT 6.07 K/uL (4.8-10.8)
[2017-04-22 13:14] LABS: ALBUMIN 3.8 gm/dl (3.4-5.0); CALCIUM 9.3 mg/dl (8.5-10.1); CREATININE 0.74 mg/dl (0.60-1.40); POTASSIUM 3.6 mmol/L (3.5-5.1)
[2017-04-22 13:17] LABS: TOTAL PROTEIN 8.1 gm/dl (6.4-8.2)
[2017-04-22] MEDS ORDERED: DiphenhydrAMINE HCL 50 MG/ML VIAL IV STA ×2 (13:42→17:43)
--- NOTE | 2017-04-22 13:58 | DIAGNOSTIC IMAGING REPORT ---
PA CHEST RADIOGRAPH AND UPRIGHT AND SUPINE AP RADIOGRAPHS OF THE ABDOMEN CLINICAL HISTORY: Evaluate for obstruction. COMPARISON STUDY: CT of the abdomen and pelvis April 20, 2017. FINDINGS: A left PICC is in place. Lungs are clear. No pneumothorax or pleural effusion is noted. Pulmonary vascularity is normal. Cardiac size is normal. Mediastinal contours are normal. There are cholecystectomy clips. There is no free air. Multiple bowel anastomoses are noted. Moderate gaseous distention of several bowel loops is noted. This has slightly increased since exam of April 20, 2017. IMPRESSION: 1. No free air. 2. Slight increase in moderate gaseous distention of multiple bowel loops since exam of April 20, 2017. This is nonspecific given previous bowel resection and may present chronic small bowel dilatation or a small bowel obstruction. 3. No acute cardiopulmonary findings. Electronically signed by: Jose Ellis M.D. 04/22/2017 1:56 PM Dictated Date/Time: 04/22/2017 1:52 PM
--- NOTE | 2017-04-22 15:36 | History and Physical ---
History & Physical Date & Time of Service: Apr 22, 2017 at 15:32 Chief Complaint: Abdominal Pain, Vomiting, Rectal Bleeding Primary Care Physician: Jamison Mosley M.D. History of Present Illness Source: patient, clinic records, hospital records This is a 32yo M with a PMH of complicated Crohn's disease who presents with hematemesis x 1 day and rectal bleeding x 1 month. Patient has followed with [facility] gastroenterology and colorectal surgery but recently was seen in [place] for a second opinion. Patient has tried multiple medications for IBD management without success. Underwent a total colectomy in 2013 followed by creation of a J pouch in 2014, with reversal and then another loop ileostomy in 2015. In February of 2017, patient underwent an ileostomy reversal. Experienced obstructive symptoms in early March and was started on TPN. Has been experiencing bright red rectal bleeding over the past month. Usually has a loose bowel movement every few hours but frequency has decreased to 1-2 bowel movements per day. Still endorses 1-2 episodes of bloody stool per day. Hgb has downtrended from 12 to 8. Patient had an episode of hematemesis this morning. Associated with nausea. Also endorses RLQ pain that is stabbing and constant. Worse when lying down or exerting himself. Was seen in the ED a few days ago for this abdominal pain and CT abd pelvis showed slight increase of gaseous distension that may represent chronic small bowel dilatation vs. SBO. Patient is not on any home medications. Denies fever, chills, lightheadedness, headache, visual changes, chest pain, SOB or LE swelling. 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 Physical Exam Vital Signs Date Time Temp Pulse Resp B/P (MAP) Pulse Ox O2 Delivery O2 Flow Rate FiO2 04/22/17 14:52 80 16 111/72 97 Room Air 04/22/17 13:38 73 18 113/71 96 Room Air 04/22/17 12:57 86 16 125/74 94 Room Air 04/22/17 11:56 36.8 93 20 117/68 98 Room Air General Appearance: WD/WN, no apparent distress Head: normocephalic, atraumatic Eyes: normal inspection, PERRL, sclerae normal ENT: normal ENT inspection, hearing grossly normal, pharynx normal (dry mucous membranes ) Neck: supple, thyroid normal, trachea midline Respiratory/Chest: chest non-tender, lungs clear, normal breath sounds Cardiovascular: regular rate, rhythm, no murmur, normal peripheral pulses Abdomen/GI: normal bowel sounds, soft, no organomegaly, + tenderness (TTP, most in RLQ. Mild distention ) Back: normal inspection Extremities/Musculoskelatal: normal inspection, no calf tenderness, no pedal edema, + pertinent finding (LUE PICC line ) Neurologic/Psych: no motor/sensory deficits, alert, normal mood/affect, oriented x 3 Skin: normal color, warm/dry Diagnostics Laboratory Results Results Past 24 Hours Test 04/22/17 12:46 04/22/17 14:00 Range/Units White Blood Count 6.07 4.8-10.8 K/uL Red Blood Count 3.57 4.7-6.1 M/uL Hemoglobin 8.5 14.0-18.0 g/dL Hematocrit 26.9 42-52 % Mean Corpuscular Volume 75.4 80-100 fL Mean Corpuscular Hemoglobin 23.8 25-34 pg Mean Corpuscular Hemoglobin Concent 31.6 32-36 g/dl Platelet Count 353 130-400 K/uL Mean Platelet Volume 8.7 7.4-10.4 fL Neutrophils (%) (Auto) 66.8 % Lymphocytes (%) (Auto) 21.4 % Monocytes (%) (Auto) 8.7 % Eosinophils (%) (Auto) 2.1 % Basophils (%) (Auto) 0.5 % Neutrophils # (Auto) 4.05 1.4-6.5 K/uL Lymphocytes # (Auto) 1.30 1.2-3.4 K/uL Monocytes # (Auto) 0.53 0.11-0.59 K/uL Eosinophils # (Auto) 0.13 0-0.5 K/uL Basophils # (Auto) 0.03 0-0.2 K/uL RDW Standard Deviation 40.6 36.4-46.3 fL RDW Coefficient of Variation 14.6 11.5-14.5 % Immature Granulocyte % (Auto) 0.5 % Immature Granulocyte # (Auto) 0.03 0.00-0.02 K/uL Polychromasia 1+ Hypochromasia PRESENT Sodium Level 138 136-145 mmol/L Potassium Level 3.6 3.5-5.1 mmol/L Chloride Level 106 98-107 mmol/L Carbon Dioxide Level 24 21-32 mmol/L Anion Gap 8.0 3-11 mmol/L Blood Urea Nitrogen 11 7-18 mg/dl Creatinine 0.74 0.60-1.40 mg/dl Est Creatinine Clear Calc Drug Dose 160.6 ml/min Estimated GFR () 143.5 Estimated GFR (Non- 123.8 BUN/Creatinine Ratio 15.3 10-20 Random Glucose 102 70-99 mg/dl Calcium Level 9.3 8.5-10.1 mg/dl Total Bilirubin 0.6 0.2-1 mg/dl Direct Bilirubin 0.1 0-0.2 mg/dl Aspartate Amino Transf (AST/SGOT) 10 15-37 U/L Alanine Aminotransferase (ALT/SGPT) 22 12-78 U/L Alkaline Phosphatase 106 45-117 U/L Total Protein 8.1 6.4-8.2 gm/dl Albumin 3.8 3.4-5.0 gm/dl Lipase 69 73-393 U/L Urine Color DK YELLOW Urine Appearance CLEAR CLEAR Urine pH 5.0 4.5-7.5 Urine Specific Orwell 1.034 1.000-1.030 Urine Protein NEG NEG Urine Glucose (UA) NEG NEG Urine Ketones NEG NEG Urine Occult Blood NEG NEG Urine Nitrite NEG NEG Urine Bilirubin NEG NEG Urine Urobilinogen NEG NEG Urine Leukocyte Esterase NEG NEG Diagnostic Radiology Chest/abdomen XR: IMPRESSION: 1. No free air. 2. Slight increase in moderate gaseous distention of multiple bowel loops since exam of April 20, 2017. This is nonspecific given previous bowel resection and may present chronic small bowel dilatation or a small bowel obstruction. 3. No acute cardiopulmonary findings. Impression Assessment and Plan This is a 32yo M with a PMH of complicated Crohn's disease who presents with hematemesis x 1 day and rectal bleeding x 1 month. Acute blood loss anemia: -2/2 hematemesis, rectal bleeding -Hgb downtrending from 12 in February to 8 now -Stable over the past few days -Q 12 hr H&H -Transfuse if hgb <8 Hematemesis: -Protonix drip -Clear liquids, NPO after midnight -Plan for EGD tomorrow -GI consulted Crohn's flare: -Rectal bleeding x 1 mo -Has failed outpatient medical mgmt -Constant RLQ pain -IV solumedrol Q8 -Continue TPN nutrition Allergic reaction to adhesives: -Given benadryl in ED -IV solumedrol Q8 DVT Ppx: teds Code status: FULL PCP: Danese Dispo: Admit to telemetry. Plan to return home once medically stable. Patient seen in collaboration with Dr. Mar. Please see addendum. ADDENDUM: This is a 32 year old male with a complicated history regarding his Crohn's disease; has had multiple surgical interventions including ileostomies and reversals - failed Remicade and Humira. Currently uses TPN and intermittently has PO intake. He is here secondary to bloody stool as well as one episode of hematemesis. Currently, he is stable, has some R sided abdominal pain. Plan as per GI for his hematemesis is to start a PPI drip, NPO after midnight, to have an EGD in AM. Started on IV solu-medrol for the likely Crohn's flare. Monitor H/H and transfuse as necessary. Can likely wait until Hgb < 7. Monitor electrolytes. Give IVFs TPN to continue - cabinet and trim installer consulted. Level of Care Telemetry Resuscitation Status FULL RESUSCITATION VTE Prophylaxis Given or contraindicated: Elyse Estrada
[2017-04-22] MEDS ORDERED: ONDANSETRON INJ 2 MG/ML 2 ML VIAL IV PRN (15:45)
[2017-04-22] MEDS ORDERED: DiphenhydrAMINE INJ 50 MG in SYRINGE 0 ML IV ONE (16:15)
--- NOTE | 2017-04-22 17:09 | Gastrointestinal Consultation ---
Gastrointestinal Consultation Date of Consultation: Apr 22, 2017 Attending Physician: Dr. Mar Consulting Physician: Dr. Jamison Wilcox Reason for Consultation: Hematemesis, hematemesis History of Present Illness Patient is a 32 year old male pt of Dr. Mosley in [place] with a hx of Crohn's colitis who presented today for hematemesis, for which GI is consulted. Regarding his hx of Crohn's. In June 2013, at age 28, he was experienced hematochezia, underwent colonoscopy and was given the dx of UC. One month after dx, he underwent total colectomy for toxic megacolon at [facility]. During the next year he was tried on various IBD meds. He recalls failing Remicade and Humira and others but doesn't remember other specific meds. In 2014 (one yr after dx), he underwent J pouch creation and loop ileostomy creation. In 2015, the loop ileostomy was reversed and within a month he had to undergo a second surgery for small bowel obstruction. The obstructive process continued for the next month and a loop ileostomy was created again. In 2016 he experienced acute renal failure (Cr 10), resolved w/o dialysis. Next, he underwent lap cholecystectomy also in 2016. In Feb 2017, he underwent ileostomy reversal with connection to the previously made J pouch. Since the time of that surgery on Feb 15, he has had rectal bleeding. Prior to surgery, Hb was 12 and his recent baseline, in 8. Two weeks after surgery, he underwent ileoscopy ( rectal approach) and recalls that there were surgical etta in the pouch as well as ulcers. Since that time, he was admitted to [facility] (03/13/17 - 2018) for obstructive symptoms. A PICC line was placed and he has been on TPN since [place]. He established care with [facility], seeing an COST COORDINATOR in [place] on 03/12. He plans to transfer his care from [facility] IBD clinic to [facility]. He is on disability for the IBD and tells me that he has spent "most of the past 4 yrs in hospitals). This morning he felt nauseated and he vomiting about 1/2 cup of bright red blood. He tells me that he feels nauseated from time to time, and his most recent prior vomiting was last night w/o blood. His most recent BM was a few hours ago, with bright red blood. His baseline bowel pattern is loose BMs about hourly but in the past few days, he has passed only about 2 BMs/day. He does not have significant bloating or distention. He has a stabbing RLQ abdomen. He has chronic pain which is worsened in the past week (prior to a CT with IV contrast here at [facility] during an ED visit on 04/20 which suggested small bowel adhesions, possible inflammation near the anastomosis. He is seen and examined while he is sitting up in bed in the ED. He is awake, alert, oriented. Hb is 8 (similar to prior [facility] ED visit in the past week and his 04/08/17 labs in [facility]). He is hemodynamically stable. Past Medical/Surgical History Medical Problems: (1) Abdominal pain Status: Acute (2) Acute Crohn's disease Status: Chronic (3) Rectal bleeding Status: Acute Past Medical History: 1. Crohn's colitis. 2. Allergic to tape adhesives, mushroom and pollens. Past Surgical History: 1. Multiple IBD surgeries, endoscopies 2. Lap cholecystomy Family History Cancer Hypertension Social History Smoking Status: Never Smoker Alcohol Use: none Drug Use: none Marital Status: single Housing Status: lives with family Occupation Status: unemployed Allergies Coded Allergies: Mushroom (Verified Allergy, Severe, ANAPHYLAXIS, 04/22/17) Adhesives (Verified Allergy, Intermediate, RASH, 04/22/17) Current Medications Home Meds and Scripts Medications Dose Route/Sig Max Daily Dose Days Date Category Tpn Infusion (Total Parenteral Nutrition) 1 Ea Inj 1 Dose IV DAILY 04/11/17 Reported Review of Systems Constitutional: No fever, No chills, No sweats, No weight loss, No weakness Eyes: No eye pain, No redness ENT: No hearing loss, No sore throat, No trouble swallowing, No pain on swallowing Respiratory: No cough, No wheezing, No shortness of breath, No dyspnea on exertion Cardiac: No chest pain, No edema, No palpitations Abdomen: + see HPI, + pain, + nausea, + vomiting, + diarrhea, + GI bleeding Male : No dysuria Neuro: No memory loss, No weakness, No numbness/tingling, No vertigo, No balance problems Psych: No depression symptoms, No anxiety, No insomnia Heme: No abnormal bleeding/bruising, No night sweats Endo: + fatigue, No excessive thirst, No excessive urination Skin: No rash, No itch, No new/changing skin lesions, No jaundice Physical Exam Date Time Temp Pulse Resp B/P (MAP) Pulse Ox O2 Delivery O2 Flow Rate FiO2 04/22/17 16:19 76 16 112/74 97 Room Air 04/22/17 14:52 80 16 111/72 97 Room Air 04/22/17 13:38 73 18 113/71 96 Room Air 04/22/17 12:57 86 16 125/74 94 Room Air 04/22/17 11:56 36.8 93 20 117/68 98 Room Air General Appearance: no apparent distress Eyes: normal inspection, EOMI Neck: supple, no adenopathy, thyroid normal Respiratory/Chest: chest non-tender, lungs clear, normal breath sounds, no accessory muscle use Cardiovascular: regular rate, rhythm, no JVD, no murmur Abdomen: normal bowel sounds, no organomegaly, + tenderness (mild right sided abdominal tenderness) Extremities: normal inspection, no pedal edema, normal capillary refill Neurologic/Psych: alert, normal mood/affect, oriented x 3 Skin: normal color, no jaundice, warm/dry, no rash Laboratory Results Last 24 Hours Test 04/22/17 12:46 04/22/17 14:00 04/22/17 15:49 White Blood Count 6.07 K/uL Red Blood Count 3.57 M/uL Hemoglobin 8.5 g/dL Hematocrit 26.9 % Mean Corpuscular Volume 75.4 fL Mean Corpuscular Hemoglobin 23.8 pg Mean Corpuscular Hemoglobin Concent 31.6 g/dl Platelet Count 353 K/uL Mean Platelet Volume 8.7 fL Neutrophils (%) (Auto) 66.8 % Lymphocytes (%) (Auto) 21.4 % Monocytes (%) (Auto) 8.7 % Eosinophils (%) (Auto) 2.1 % Basophils (%) (Auto) 0.5 % Neutrophils # (Auto) 4.05 K/uL Lymphocytes # (Auto) 1.30 K/uL Monocytes # (Auto) 0.53 K/uL Eosinophils # (Auto) 0.13 K/uL Basophils # (Auto) 0.03 K/uL RDW Standard Deviation 40.6 fL RDW Coefficient of Variation 14.6 % Immature Granulocyte % (Auto) 0.5 % Immature Granulocyte # (Auto) 0.03 K/uL Polychromasia 1+ Hypochromasia PRESENT Sodium Level 138 mmol/L Potassium Level 3.6 mmol/L Chloride Level 106 mmol/L Carbon Dioxide Level 24 mmol/L Anion Gap 8.0 mmol/L Blood Urea Nitrogen 11 mg/dl Creatinine 0.74 mg/dl Est Creatinine Clear Calc Drug Dose 160.6 ml/min Estimated GFR () 143.5 Estimated GFR (Non- 123.8 BUN/Creatinine Ratio 15.3 Random Glucose 102 mg/dl Calcium Level 9.3 mg/dl Total Bilirubin 0.6 mg/dl Direct Bilirubin 0.1 mg/dl Aspartate Amino Transf (AST/SGOT) 10 U/L Alanine Aminotransferase (ALT/SGPT) 22 U/L Alkaline Phosphatase 106 U/L Total Protein 8.1 gm/dl Albumin 3.8 gm/dl Lipase 69 U/L Urine Color DK YELLOW Urine Appearance CLEAR Urine pH 5.0 Urine Specific Benedict 1.034 Urine Protein NEG Urine Glucose (UA) NEG Urine Ketones NEG Urine Occult Blood NEG Urine Nitrite NEG Urine Bilirubin NEG Urine Urobilinogen NEG Urine Leukocyte Esterase NEG Impression Patient is a 32 year old male with a complicated IBD history. He has undergone total colectomy J Pouch creation. In February 2018, he had reversal of the ostomy and has had rectal bleeding since then. He had hematemesis this morning. He has had recent obstructive symptoms but not in the past few days. He has failed medical treatment for Crohn's and is not on any current OP IBD meds. He is on TPN and clear liquids po. Plan 1. TPN should be continued. Appreciate primary hospitalist service coordinating that. 2. IV solumedrol 20mg Q 8 hrs for the tape reaction and the Crohn's. 3. Protonix drip. 4. Q 12 hr H&H. 5. Will plan for EGD tomorrow. 6. Clear liquids tonight po then NPO after midnight. This pt was discussed with Dr. Wilcox. I have seen , examined and agree with the plan as outlined by JULIÁN Sheffield as above. -exam reveals soft abd -Plan for hematemesis-EGD no signs of acute ongoing bleeding -Ileoscopy for pouch eval
[2017-04-22 17:14] LABS: HEMATOCRIT 26.9 % (42-52); HEMOGLOBIN 8.3 g/dL (14.0-18.0); MEAN CELL VOLUME 75.1 fL (80-100); MEAN CORPUSCULAR HEMOGLOBIN 23.2 pg (25-34); MEAN CORPUSCULAR HGB CONC 30.9 g/dl (32-36); MEAN PLATELET VOLUME 8.9 fL (7.4-10.4); PLATELET COUNT 349 K/uL (130-400); RED CELL DISTRIBUTION WIDTH CV 14.6 % (11.5-14.5); RED CELL DISTRIBUTION WIDTH SD 40.1 fL (36.4-46.3); WHITE BLOOD COUNT 6.17 K/uL (4.8-10.8)
[2017-04-22 17:27] VITALS: BP 112/64; PULSE 68; TEMP 36.4; O2SAT 96
[2017-04-22 17:32] LABS: CALCIUM 8.9 mg/dl (8.5-10.1); CREATININE 0.77 mg/dl (0.60-1.40); POTASSIUM 3.7 mmol/L (3.5-5.1)
[2017-04-22] MEDS ORDERED: TPN/PPN CONSULT PHARMACY PRN (17:46)
[2017-04-22] MEDS ORDERED: PANTOprazole INJ 40 MG in SYRINGE 0 ML IV ONE (18:00)
--- NOTE | 2017-04-22 18:11 | EMERGENCY ROOM VISIT NOTE ---
History Report prepared by Reed: Kelvin Barreto Under the Supervision of: Dr. Tevin Billy M.D. First contact with patient: 12:21 Chief Complaint: VOMITING Stated Complaint: ABDOMINAL PAIN, VOMITING, RECTAL BLEEDING Nursing Triage Summary: patient with chrones disease. has been having trouble with having a bowel movment. what stool that is coming out is blood. vomiting started last night and continues. vomit is also blood. abominal pain is worse History of Present Illness The patient is a 32 year old male who presents to the Emergency Room with complaints of intermittent abdominal pain beginning two weeks ago. He describes his pain as "stabbing". The patient has a history of Crohn's disease. His abdominal pain worsened last night. The patient was seen in the ED two days ago for similar symptoms and had CT Abdomen & Pelvis which showed some inflammatory changes that the patient believes are new. He states that he has begun vomiting about a month ago. He has had very little stool output recently. The patient states that he has noticed blood in his stool and vomit today. The blood in his stool began about a month ago, and has been bright red in color. He is primarily concerned with the new blood in his vomit, which he describes as bright red as well and began yesterday. No dark blood or coffee-ground emesis. The patient denies fevers or urinary symptoms. Source of History: patient Onset: Two weeks ago Position: abdomen Quality: stabbing Timing: intermittent Associated Symptoms: + vomiting (with blood), No fevers, No urinary symptoms Note: The patient denies dark colors in his vomit. Review of Systems See HPI for pertinent positives & negatives. A total of 10 systems reviewed and were otherwise negative. Past Medical & Surgical Medical Problems: (1) Acute Crohn's disease (2) Crohns disease (3) Hematemesis (4) On total parenteral nutrition (TPN) (5) PICC (peripherally inserted central catheter) in place (6) total proctocolectomy and ileal pouch anal anastomosis Surgical Problems: (1) H/O total colectomy Family History Cancer Hypertension Social History Smoking Status: Never Smoker Alcohol Use: none Drug Use: none Marital Status: single Housing Status: lives with family Occupation Status: unemployed Current/Historical Medications Scheduled Tpn Infusion (Tpn Infusion), 1 DOSE IV DAILY Allergies Coded Allergies: Mushroom (Verified Allergy, Severe, ANAPHYLAXIS, 2/12/18) Adhesives (Verified Allergy, Intermediate, RASH, 04/22/17) Physical Exam Vital Signs Date Time Temp Pulse Resp B/P (MAP) Pulse Ox O2 Delivery O2 Flow Rate FiO2 04/22/17 14:52 80 16 111/72 97 Room Air 04/22/17 13:38 73 18 113/71 96 Room Air 04/22/17 12:57 86 16 125/74 94 Room Air 04/22/17 11:56 36.8 93 20 117/68 98 Room Air Physical Exam Constitutional: Vital signs reviewed. Eyes: Pupils are equal round reactive to light. Conjunctiva are noninjected. ENT: Pharynx is clear without erythema or exudate. Mucous membranes are moist. Neck supple without meningeal signs. Respiratory: Clear to auscultation bilaterally. Breath sounds are equal bilaterally. Cardiovascular: Regular rate and rhythm. No rubs or gallops. GI: Soft, and nondistended. Bowel sounds are present. Diffuse abdominal tenderness to palpation. No guarding. Musculoskeletal: No peripheral edema. No lower extremity tenderness. Integumentary: No cyanosis. Neurological: The patient is awake and alert. No focal deficits. Psychiatric: Normal affect. Medical Decision & Procedures ER Provider Diagnostic Interpretation: Radiology results as stated below per my review and the radiologist's interpretation: PA CHEST RADIOGRAPH AND UPRIGHT AND SUPINE AP RADIOGRAPHS OF THE ABDOMEN FINDINGS: A left PICC is in place. Lungs are clear. No pneumothorax or pleural effusion is noted. Pulmonary vascularity is normal. Cardiac size is normal. Mediastinal contours are normal. There are cholecystectomy clips. There is no free air. Multiple bowel anastomoses are noted. Moderate gaseous distention of several bowel loops is noted. This has slightly increased since exam of April 20, 2017. IMPRESSION: 1. No free air. 2. Slight increase in moderate gaseous distention of multiple bowel loops since exam of April 20, 2017. This is nonspecific given previous bowel resection and may present chronic small bowel dilatation or a small bowel obstruction. 3. No acute cardiopulmonary findings. Electronically signed by: Jose Ellis M.D. 04/22/2017 1:56 PM Laboratory Results Test 04/22/17 12:46 04/22/17 14:00 Immature Granulocyte % (Auto) 0.5 % White Blood Count 6.07 K/uL (4.8-10.8) Red Blood Count 3.57 M/uL (4.7-6.1) Hemoglobin 8.5 g/dL (14.0-18.0) Hematocrit 26.9 % (42-52) Mean Corpuscular Volume 75.4 fL (80-100) Mean Corpuscular Hemoglobin 23.8 pg (25-34) Mean Corpuscular Hemoglobin Concent 31.6 g/dl (32-36) Platelet Count 353 K/uL (130-400) Mean Platelet Volume 8.7 fL (7.4-10.4) Neutrophils (%) (Auto) 66.8 % Lymphocytes (%) (Auto) 21.4 % Monocytes (%) (Auto) 8.7 % Eosinophils (%) (Auto) 2.1 % Basophils (%) (Auto) 0.5 % Neutrophils # (Auto) 4.05 K/uL (1.4-6.5) Lymphocytes # (Auto) 1.30 K/uL (1.2-3.4) Monocytes # (Auto) 0.53 K/uL (0.11-0.59) Eosinophils # (Auto) 0.13 K/uL (0-0.5) Basophils # (Auto) 0.03 K/uL (0-0.2) Immature Granulocyte # (Auto) 0.03 K/uL (0.00-0.02) Polychromasia 1+ Hypochromasia PRESENT Total Bilirubin 0.6 mg/dl (0.2-1) Direct Bilirubin 0.1 mg/dl (0-0.2) Aspartate Amino Transf (AST/SGOT) 10 U/L (15-37) Alanine Aminotransferase (ALT/SGPT) 22 U/L (12-78) Alkaline Phosphatase 106 U/L (45-117) Total Protein 8.1 gm/dl (6.4-8.2) Albumin 3.8 gm/dl (3.4-5.0) Lipase 69 U/L (73-393) Urine Color DK YELLOW Urine Appearance CLEAR (CLEAR) Urine pH 5.0 (4.5-7.5) Urine Specific [place] 1.034 (1.000-1.030) Urine Protein NEG (NEG) Urine Glucose (UA) NEG (NEG) Urine Ketones NEG (NEG) Urine Occult Blood NEG (NEG) Urine Nitrite NEG (NEG) Urine Bilirubin NEG (NEG) Urine Urobilinogen NEG (NEG) Urine Leukocyte Esterase NEG (NEG) Laboratory results as reviewed by me. Medications Administered Medications (Trade) Dose Ordered Sig/Tifafny Route Start Time Stop Time Status Last Admin Dose Admin Morphine Sulfate (MoRPHine SULFATE INJ) 4 mg ONE STAT IV 04/22/17 12:34 04/22/17 12:35 DC 04/22/17 12:59 4 MG Ondansetron HCl (Zofran Inj) 4 mg NOW STAT IV 04/22/17 12:34 04/22/17 12:35 DC 04/22/17 12:58 4 MG Diphenhydramine HCl (Benadryl Inj) 25 mg NOW STAT IV 04/22/17 13:42 04/22/17 13:43 DC 04/22/17 13:56 25 MG Morphine Sulfate (MoRPHine SULFATE INJ) 4 mg NOW STAT IV 04/22/17 13:42 04/22/17 13:43 DC 04/22/17 13:56 4 MG ED Course 1227: The patient was evaluated in room A4B. A complete history and physical exam was performed. 1234: Ordered Zofran Inj 4 mg IV, Morphine Sulfate 4 mg IV. 1342: Ordered Morphine Sulfate 4 mg IV, Benadryl Inj 25 mg IV. 1425: I discussed the patient's test results with him. We discussed his distension on x-ray, and the prospect of an abdominal CT. We will hold off for now due to concerns of radiation. 1450: Upon reevaluation, the patient is resting comfortably. I discussed tonight 's findings with him. He verbalized agreement of the treatment plan. The patient will be evaluated for further management. Medical Decision This is a 32-year-old male who presents with abdominal pain, hematemesis and hematochezia. Differential diagnosis includes GI bleed, Crohn's disease exacerbation, obstruction, partial bowel obstruction, anemia. I did perform a limited focused review of portions of the patient's old chart on the electronic medical record. The patient was seen here two days ago for abdominal pain. He had a CT Abdomen & Pelvis which showed subtle small bowel wall thickening with some inflammatory changes in the superior pelvic loops as well as inflammatory changes of the right abdominal wall. Findings may represent post-surgical changes or infection. Case was discussed with his GI doctor at [facility], and outpatient follow up was arranged. Patient states that the CT findings were new. I did evaluate the patient as noted above. Patient has a history of Crohn's disease. He has had abdominal pain intermittently for about 2 weeks now with hematochezia. Today developed some hematemesis. On my exam he is diffusely tender to palpation of his abdomen but is very well-appearing and in no apparent distress. IV access was established. I did treat the patient with morphine and Zofran IV. He requested some Benadryl because of his adhesive allergy. He was given 25 mg of Benadryl IV and additional morphine IV. I did order and personally review the patient's abdominal and chest x-ray as described above. He does appear to have some increase in distention of his bowel compared to CT 2 days ago. I did order and review the patient's blood work as noted in the electronic medical record. His white blood cell count is not elevated. He is anemic but his hemoglobin is increased since his previous visit. On reassessment the patient appears very well. I did discuss his test results with him. I did discuss possibility of repeating a CAT scan but as he is very well-appearing and out of concern for repeated radiation exposure, we decided to hold off on the CT since he will be admitted to the hospital. 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 I did discuss the case with the hospitalist and case management rn. Medication Reconcilliation Current Medication List: was personally reviewed by me Blood Pressure Screening Patient's blood pressure: Normal blood pressure Blood pressure disposition: Did not require urgent referral Consults Time Called: 144 Consulting Physician: Lela Sepulveda PA-C - [facility] Hospitalist Returned Call: [phone] I spoke with Lela Sepulveda PA-C of [facility]. We discussed the patient and his results. The patient will be further evaluated by [facility]. Impression Primary Impression: Exacerbation of Crohn's disease Additional Impressions: Hematemesis Anemia Scribe Attestation The scribe's documentation has been prepared under my direct and personally reviewed by me in its entirety. I confirm that the note above accurately reflects all work, treatment, procedures, and medical decision making performed by me. Departure Information Dispostion Being Evaluated By Hospitalist Referrals Jamison Mosley M.D. (PCP) Patient Instructions My [facility] Problem Qualifiers Primary Impression: Exacerbation of Crohn's disease Digestive disease complication type: unspecified complication Qualified Codes : K50.919 - Crohn's disease, unspecified, with unspecified complications Additional Impressions: Hematemesis Nausea presence: unspecified Qualified Codes: K92.0 - Hematemesis Anemia Anemia type: unspecified type Qualified Codes: D64.9 - Anemia, unspecified
[2017-04-22 18:16] VITALS: BMI 28.1
[2017-04-22] MEDS: MoRPHine SULFATE 2 MG/ML CARP IV PRN ×2 (18:35→22:48)
[2017-04-22] MEDS: SODIUM CHLORIDE 0.9% 1000ML 1,000 ML IV SCH (18:36)
[2017-04-22 19:44] VITALS: BP 111/65; PULSE 66; TEMP 36.6; O2SAT 98
[2017-04-22 20:00] VITALS: O2SAT 98
[2017-04-22] MEDS: METHYLPREDNISOLONE IV 20 MG in SYRINGE 0 ML IV SCH (21:29)
[2017-04-22 23:34] VITALS: BP 123/77; PULSE 69; TEMP 36.6; O2SAT 99
[2017-04-23] VITALS (10 sets, daily range): BP systolic 94–119; BP diastolic 54–71; PULSE 60–95; TEMP 36.5–36.9; O2SAT 93–98; Ht 175.3 cm; Wt 88.7 kg
[2017-04-23] MEDS: SODIUM CHLORIDE 0.9% 1000ML 1,000 ML IV SCH ×2 (02:25→12:47)
[2017-04-23] MEDS: MoRPHine SULFATE 2 MG/ML CARP IV PRN ×4 (02:53→21:25)
[2017-04-23] MEDS: METHYLPREDNISOLONE IV 20 MG in SYRINGE 0 ML IV SCH ×3 (05:44→21:25)
[2017-04-23 07:06] LABS: HEMATOCRIT 26.9 % (42-52); HEMOGLOBIN 8.3 g/dL (14.0-18.0); MEAN CELL VOLUME 75.6 fL (80-100); MEAN CORPUSCULAR HEMOGLOBIN 23.3 pg (25-34); MEAN CORPUSCULAR HGB CONC 30.9 g/dl (32-36); MEAN PLATELET VOLUME 9.3 fL (7.4-10.4); PLATELET COUNT 290 K/uL (130-400); RED CELL DISTRIBUTION WIDTH CV 14.5 % (11.5-14.5); RED CELL DISTRIBUTION WIDTH SD 40.2 fL (36.4-46.3); WHITE BLOOD COUNT 7.18 K/uL (4.8-10.8)
[2017-04-23 07:38] LABS: CALCIUM 8.9 mg/dl (8.5-10.1); CREATININE 0.72 mg/dl (0.60-1.40); POTASSIUM 4.3 mmol/L (3.5-5.1)
[2017-04-23] MEDS ORDERED: DiphenhydrAMINE HCL 50 MG/ML VIAL ONE (10:27)
[2017-04-23] MEDS ORDERED: FENTANYL CITRATE INJ 50 MCG/1 ML 2 ML VIAL ONE (10:29)
[2017-04-23] MEDS ORDERED: PROPOFOL IV EMULSION 10 MG/ML 20 ML VIAL IV ONE (10:46)
--- NOTE | 2017-04-23 11:00 | GI REPORT ---
Procedure Date: 04/23/2017 10:39 AM Procedure: Pouchoscopy Indications: History of total colectomy with J pouch, c/o rectal bleeding. History of UC, possibly now with concern for Crohn's. Off all medications for over 1 year. Medicines: Monitored Anesthesia Care Complications: No immediate complications. Estimated blood loss: None. Estimated Blood Loss: Estimated blood loss: none. Procedure: Pre-Anesthesia Assessment: - Pre-Anesthesia Assessment: - Prior to the procedure, a History and Physical was performed, and patient medications, allergies and sensitivities were reviewed. The patient's tolerance of previous anesthesia was reviewed. Please see Vixar for complete details. - The risks and benefits of the procedure and the sedation options and risks were discussed with the patient. All questions were answered and informed consent was obtained. - Patient identification and proposed procedure were verified prior to the procedure by the physician and the nurse. The procedure was verified in the pre-procedure area in the procedure room. After obtaining informed consent, the endoscope was passed carefully and meticuously under direct vision and only advanced when the lumen was clearly identified, C02 insuflation was utilized throughout the entirity of the procedure. Throughout the procedure, the patient's blood pressure, pulse, and oxygen saturations were monitored continuously. After obtaining informed consent, the endoscope was passed under direct vision. Throughout the procedure, the patient's blood pressure, pulse, and oxygen saturations were monitored continuously. The Scope was introduced through the anus and advanced to the ileal reservoir via the stoma and into the ileum. After obtaining informed consent, the endoscope was passed under direct vision. Throughout the procedure, the patient's blood pressure, pulse, and oxygen saturations were monitored continuously.The procedure was performed without difficulty. The quality of the bowel preparation was poor. Findings: Patient is status-post total colectomy with an ileal pouch-anal anastomosis. The ileoanal pouch appeared normal. Biopsies were taken with a cold forceps for histology. No evidence of pouchitis. No other significant abnormalities were identified in a careful examination in the ileum proximal to the pouch, Biopsies were taken with a cold forceps in the distal ileum for histology. Impression: - Preparation of the colon was poor. - The ileoanal pouch is normal. Biopsied. - Biopsies were taken with a cold forceps for histology in the distal ileum. Recommendation: - Return [facility]. - Await pathology results. - Enterography, - Likely ok for D/C, not entirely sure of why not eating and on TPN, but no evidence of mucosal based disease on today's examination. Jamison Wilcox MD 04/23/2017 10:59:56 AM This report has been signed electronically. Note Initiated On: 04/23/2017 10:39 AM I attest to the content of the Intraoperative Record and orders documented therein, exceptions below
--- NOTE | 2017-04-23 11:03 | GI REPORT ---
Procedure Date: 04/23/2017 10:23 AM Procedure: Upper GI endoscopy Indications: Hematemesis Medicines: Monitored Anesthesia Care Complications: No immediate complications. Estimated blood loss: None. Estimated Blood Loss: Estimated blood loss: none. Procedure: Pre-Anesthesia Assessment: - Pre-Anesthesia Assessment: - Prior to the procedure, a History and Physical was performed, and patient medications, allergies and sensitivities were reviewed. The patient's tolerance of previous anesthesia was reviewed. Please see [facility]iExpert for complete details. - The risks and benefits of the procedure and the sedation options and risks were discussed with the patient. All questions were answered and informed consent was obtained. - Patient identification and proposed procedure were verified prior to the procedure by the physician and the nurse. The procedure was verified in the pre-procedure area in the procedure room. After obtaining informed consent, the endoscope was passed carefully and meticuously under direct vision and only advanced when the lumen was clearly identified, C02 insuflation was utilized throughout the entirity of the procedure. Throughout the procedure, the patient's blood pressure, pulse, and oxygen saturations were monitored continuously. After obtaining informed consent, the endoscope was passed under direct vision. Throughout the procedure, the patient's blood pressure, pulse, and oxygen saturations were monitored continuously. The Scope was introduced through the mouth, and advanced to the second part of duodenum. The upper GI endoscopy was accomplished without difficulty. The patient tolerated the procedure well. Findings: The examined esophagus was normal. The entire examined stomach was normal. Biopsies were taken with a cold forceps for histology. The examined duodenum was normal. Biopsies were taken with a cold forceps for histology. Impression: - Normal esophagus. - Normal stomach. Biopsied. - Normal examined duodenum. Biopsied. Recommendation: - Await pathology results. - [facility] patient to [facility] for [facility] care. Jamison Wilcox MD 04/23/2017 11:03:08 AM This report has been signed electronically. Note Initiated On: 04/23/2017 10:23 AM I attest to the content of the Intraoperative Record and orders documented therein, exceptions below
--- NOTE | 2017-04-23 11:21 | Progress Note ---
Internal Med Progress Note Date of Service: Apr 23, 2017. Provider Documentation: SUBJECTIVE: Seen and examined at bedside Had EGD today States having RLQ pain and nausea No other complaints OBJECTIVE: Vital Signs-as noted below Physical Exam: General Appearance:Moderately built and nourished, no apparent distress Head: normocephalic, Atraumatic Eyes: normal inspection, EOMI, PERRL Neck: supple, Trachea midline Respiratory/Chest: Normal breath sounds, CTA Cardiovascular: S1, S2, No murmur Abdomen/GI:Soft, RLQ tender, Bowel sounds present Extremities/Musculoskelatal:normal inspection, no edema Neurologic/Psych:AAOX3, grossly no focal neurological deficits Skin: normal color, warm Lab data as noted below. ASSESSMENT & PLAN: Patient is a 32 yr male with a PMH of complicated Crohn's disease who presents with hematemesis x 1 day and rectal bleeding x 1 month. Acute blood loss anemia: Secondary to hematemesis, rectal bleeding Hgb around 12 in Dec Hb:8.3 Stable over the past few days monitor H&H Transfuse PRBC if hgb <8 Hematemesis: Protonix drip discontinued S/P Esophagogastroduodenoscopy and Pouchoscopy today GI on board Crohn's flare: presents with rectal bleeding since 1 month and RLQ pain Complicated IBD history. S/P total colectomy J Pouch creation and reversal of ostomy Failed medical treatment for Crohn's and currently not on IBD meds On TPN and clear liquids PO Continue IV solumedrol Q8 GI following Protonix drip discontinued S/P Pouchoscopy on 04/23: Ileoanal pouch is normal. Biopsied. Distal ileum Biopsied also S/P Esophagogastroduodenoscopy 04/23:normal Allergic reaction to adhesives: Given Benadryl in ED IV solumedrol Q8 DVT Px: Teds Code status: Full Code Disposition: Monitor in Telemetry. Plan to return home once medically stable. PCP: Dimitri PROCEDURES: Esophagogastroduodenoscopy: Impression: - Normal esophagus. - Normal stomach. Biopsied. - Normal examined duodenum. Biopsied. Recommendation: - Await pathology results. - Return patient to [facility] for [facility] care. Pouchoscopy: Impression: - Preparation of the colon was poor. - The ileoanal pouch is normal. Biopsied. - Biopsies were taken with a cold forceps for histology in the distal ileum. Recommendation:- Return patient to [facility] for ongoing care. - Await pathology results. - MR Enterography, - Likely ok for D/C, not entirely sure of why not eating and on TPN, but no evidence of mucosal based disease on today's examination. Vital Signs: Date Time Temp Pulse Resp B/P (MAP) Pulse Ox O2 Delivery O2 Flow Rate FiO2 04/23/17 12:00 Room Air 04/23/17 11:32 53 20 100/56 (71) 99 Room Air 04/23/17 11:15 55 20 95/51 (66) 99 Room Air 04/23/17 10:57 71 20 93/56 (68) 99 Room Air 04/23/17 09:29 36.5 57 18 113/74 (87) 98 Room Air 04/23/17 08:00 Room Air 04/23/17 07:50 36.5 71 16 104/58 (73) 97 Room Air 04/23/17 04:00 98 Room Air 04/23/17 03:12 36.8 70 16 115/71 (86) 93 Room Air 04/23/17 00:00 98 Room Air 04/22/17 23:34 36.6 69 16 123/77 (92) 99 Room Air 04/22/17 20:00 98 Room Air 04/22/17 19:44 36.6 66 18 111/65 (80) 98 Room Air 04/22/17 18:16 Room Air 04/22/17 17:27 36.4 68 20 112/64 (80) 96 Room Air 04/22/17 16:19 76 16 112/74 97 Room Air 04/22/17 14:52 80 16 111/72 97 Room Air 04/22/17 13:38 73 18 113/71 96 Room Air 04/22/17 12:57 86 16 125/74 94 Room Air Lab Results: Results Past 24 Hours Test 04/22/17 12:46 04/22/17 14:00 04/22/17 17:01 04/23/17 06:36 Range/Units White Blood Count 6.07 6.17 7.18 4.8-10.8 K/uL Red Blood Count 3.57 3.58 3.56 4.7-6.1 M/uL Hemoglobin 8.5 8.3 8.3 14.0-18.0 g/dL Hematocrit 26.9 26.9 26.9 42-52 % Mean Corpuscular Volume 75.4 75.1 75.6 80-100 fL Mean Corpuscular Hemoglobin 23.8 23.2 23.3 25-34 pg Mean Corpuscular Hemoglobin Concent 31.6 30.9 30.9 32-36 g/dl Platelet Count 353 349 290 130-400 K/uL Mean Platelet Volume 8.7 8.9 9.3 7.4-10.4 fL Neutrophils (%) (Auto) 66.8 % Lymphocytes (%) (Auto) 21.4 % Monocytes (%) (Auto) 8.7 % Eosinophils (%) (Auto) 2.1 % Basophils (%) (Auto) 0.5 % Neutrophils # (Auto) 4.05 1.4-6.5 K/uL Lymphocytes # (Auto) 1.30 1.2-3.4 K/uL Monocytes # (Auto) 0.53 0.11-0.59 K/uL Eosinophils # (Auto) 0.13 0-0.5 K/uL Basophils # (Auto) 0.03 0-0.2 K/uL RDW Standard Deviation 40.6 40.1 40.2 36.4-46.3 fL RDW Coefficient of Variation 14.6 14.6 14.5 11.5-14.5 % Immature Granulocyte % (Auto) 0.5 % Immature Granulocyte # (Auto) 0.03 0.00-0.02 K/uL Polychromasia 1+ Hypochromasia PRESENT Sodium Level 138 138 137 136-145 mmol/L Potassium Level 3.6 3.7 4.3 3.5-5.1 mmol/L Chloride Level 106 107 107 98-107 mmol/L Carbon Dioxide Level 24 26 23 21-32 mmol/L Anion Gap 8.0 5.0 7.0 3-11 mmol/L Blood Urea Nitrogen 11 12 10 7-18 mg/dl Creatinine 0.74 0.77 0.72 0.60-1.40 mg/dl Est Creatinine Clear Calc Drug Dose 160.6 154.4 164.7 ml/min Estimated GFR () 143.5 141.1 145.1 Estimated GFR (Non- 123.8 121.8 125.2 BUN/Creatinine Ratio 15.3 15.2 13.3 10-20 Random Glucose 102 92 126 70-99 mg/dl Calcium Level 9.3 8.9 8.9 8.5-10.1 mg/dl Total Bilirubin 0.6 0.2-1 mg/dl Direct Bilirubin 0.1 0-0.2 mg/dl Aspartate Amino Transf (AST/SGOT) 10 15-37 U/L Alanine Aminotransferase (ALT/SGPT) 22 12-78 U/L Alkaline Phosphatase 106 45-117 U/L Total Protein 8.1 6.4-8.2 gm/dl Albumin 3.8 3.4-5.0 gm/dl Lipase 69 73-393 U/L Urine Color DK YELLOW Urine Appearance CLEAR CLEAR Urine pH 5.0 4.5-7.5 Urine Specific [place] 1.034 1.000-1.030 Urine Protein NEG NEG Urine Glucose (UA) NEG NEG Urine Ketones NEG NEG Urine Occult Blood NEG NEG Urine Nitrite NEG NEG Urine Bilirubin NEG NEG Urine Urobilinogen NEG NEG Urine Leukocyte Esterase NEG NEG Erythrocyte Sedimentation Rate 41 0-14 mm/hr C-Reactive Protein 0.46 0-0.29 mg/dl
[2017-04-23] MEDS ORDERED: DEXTROSE 10% 1,000 ML IV PRN (13:25)
[2017-04-23 13:49] LABS: PHOSPHORUS 4.2 mg/dl (2.5-4.9)
--- NOTE | 2017-04-23 15:08 | Anesthesiology Progress Note ---
Anesthesia Post Op Note Date & Time Apr 23, 2017 at 15:08 Vital Signs Pain Intensity: 6.0 Vital Signs Past 12 Hours Date Time Temp Pulse Resp B/P (MAP) Pulse Ox O2 Delivery O2 Flow Rate FiO2 04/23/17 12:53 60 14 94/55 (68) 96 Room Air 04/23/17 12:00 Room Air 04/23/17 11:32 53 20 100/56 (71) 99 Room Air 04/23/17 11:15 55 20 95/51 (66) 99 Room Air 04/23/17 10:57 71 20 93/56 (68) 99 Room Air 04/23/17 09:29 36.5 57 18 113/74 (87) 98 Room Air 04/23/17 08:00 Room Air 04/23/17 07:50 36.5 71 16 104/58 (73) 97 Room Air 04/23/17 04:00 98 Room Air 04/23/17 03:12 36.8 70 16 115/71 (86) 93 Room Air Notes Mental Status: alert / awake / arousable, participated in evaluation Pt Amnestic to Procedure: Yes Nausea / Vomiting: adequately controlled Pain: adequately controlled Airway Patency, RR, SpO2: stable & adequate BP & HR: stable & adequate Hydration State: stable & adequate Anesthetic Complications: no major complications apparent
[2017-04-23] MEDS ORDERED: NURSING VERBAL MED ORDER ONE ×3 (16:30→19:45)
[2017-04-23 16:36] LABS: HEMATOCRIT 27.4 % (42-52); HEMOGLOBIN 8.5 g/dL (14.0-18.0)
[2017-04-23] MEDS ORDERED: CUSTOM CENTRAL PN 1 BAG IV SCH (19:00)
[2017-04-24 03:55] VITALS: BP 115/69; PULSE 81; TEMP 36.7; O2SAT 94
[2017-04-24] MEDS ORDERED: TRAMADOL HCL 50 MG TAB PO PRN (04:30)
[2017-04-24] MEDS ORDERED: ACETAMINOPHEN 325 MG TAB PO PRN (04:30)
[2017-04-24] MEDS ORDERED: TRAMADOL HCL 50 MG TAB ONE (04:39)
[2017-04-24] MEDS: METHYLPREDNISOLONE IV 20 MG in SYRINGE 0 ML IV SCH (04:40)
[2017-04-24] MEDS: MoRPHine SULFATE 2 MG/ML CARP IV PRN ×2 (05:26→13:38)
[2017-04-24 06:00] LABS: HEMATOCRIT 26.7 % (42-52); HEMOGLOBIN 8.4 g/dL (14.0-18.0); MEAN CELL VOLUME 75.6 fL (80-100); MEAN CORPUSCULAR HEMOGLOBIN 23.8 pg (25-34); MEAN CORPUSCULAR HGB CONC 31.5 g/dl (32-36); MEAN PLATELET VOLUME 8.9 fL (7.4-10.4); NUCLEATED RED BLOOD CELL ABS 0.02 K/uL (0-0); PLATELET COUNT 366 K/uL (130-400); RED CELL DISTRIBUTION WIDTH CV 14.5 % (11.5-14.5); WHITE BLOOD COUNT 11.61 K/uL (4.8-10.8)
[2017-04-24 06:29] LABS: ALBUMIN 3.3 gm/dl (3.4-5.0); CALCIUM 8.5 mg/dl (8.5-10.1); CREATININE 0.74 mg/dl (0.60-1.40); POTASSIUM 3.9 mmol/L (3.5-5.1)
[2017-04-24 06:49] LABS: PHOSPHORUS 1.6 mg/dl (2.5-4.9)
[2017-04-24] MEDS ORDERED: STOP ORDER: TPN ONE (07:00)
[2017-04-24 07:48] VITALS: BP 116/61; PULSE 79; TEMP 36.6; O2SAT 96
[2017-04-24 08:00] VITALS: O2SAT 96
--- NOTE | 2017-04-24 09:45 | Gastroenterology Progress Note ---
Progress Note Date of Service: Apr 24, 2017 Subjective Pt evaluation today including: conversation w/ patient, physical exam, chart review, lab review Pt was seen and evaluated, chart reviewed. S/P EGD/Colon yesterday for evaluation of hematemesis and BRBPR. Pt notes resolution of hematemesis but continued BRBPR with complete liquid BM. Endorses abd pain, constant, cramping. Unchange with BM or activity. No fever, chills, CP, SOB EGD: Normal esophagus. Normal stomach. Biopsied.Normal examined duodenum. Biopsied. Colonoscopy: Preparation of the colon was poor.The ileoanal pouch is normal. Biopsied. Biopsies were taken with a cold forceps for histology in the distal ileum. Review of Systems Constitutional: No fever, No chills, No sweats, No weight loss Respiratory: No cough, No sputum, No wheezing, No shortness of breath Cardiac: No chest pain, No orthopnea, No edema Abdomen: + pain, + diarrhea, + GI bleeding, No nausea, No vomiting, No constipation, No dysphagia, No odynophagia Male : No dysuria, No urinary frequency, No incontinence, No hematuria Neuro: No memory loss Skin: No rash, No itch, No color change, No bleeding Medications Current Inpatient Medications Medications (Trade) Dose Ordered Sig/Tiffany Route Start Time Stop Time Status Last Admin Dose Admin Ondansetron HCl (Zofran Inj) 4 mg Q6H PRN IV 04/22/17 15:45 05/22/17 15:44 Miscellaneous Information (Pharmacy Tpn/ Ppn Consult Active) 1 ea UD PRN N/A 04/22/17 17:46 05/22/17 17:45 Methylprednisolone Sodium Succinate 20 mg/Syringe 0.32 ml @ 1.5 mls/min Q8 IV 04/22/17 22:00 05/22/17 21:59 04/24/17 04:40 1.5 MLS/MIN Morphine Sulfate (MoRPHine SULFATE INJ) 2 mg Q8 PRN IV 04/23/17 13:15 05/06/17 15:59 04/24/17 05:26 2 MG Dextrose 1,000 ml @ 0 mls/hr Q0M PRN IV 04/23/17 13:25 05/23/17 13:24 Heparin Sodium (Porcine) (Heparin 10 Unit/ ml 5 ml Flush) 5 ml PRN PRN FLUSH 04/23/17 16:45 05/23/17 16:44 04/23/17 16:50 5 ML Tramadol HCl (Ultram Tab) not relieved by tylenol @ Q6H PRN PO 04/24/17 04:30 05/24/17 04:29 Acetaminophen (Tylenol Tab) 650 mg Q6H PRN PO 04/24/17 04:30 05/24/17 04:29 Diphenhydramine HCl (Benadryl Cap) 25 mg Q6H PRN PO 04/24/17 06:15 05/24/17 06:14 04/24/17 06:30 25 MG Objective Vital Signs Date Time Temp Pulse Resp B/P (MAP) Pulse Ox O2 Delivery O2 Flow Rate FiO2 04/24/17 07:48 36.6 79 18 116/61 (79) 96 Room Air 04/24/17 04:00 Room Air 04/24/17 03:55 36.7 81 16 115/69 (84) 94 Room Air 04/24/17 00:00 Room Air 04/23/17 23:40 36.9 95 16 112/54 (73) 95 Room Air 04/23/17 22:31 91 119/61 (80) 04/23/17 20:09 36.8 95 18 107/58 (74) 95 Room Air 04/23/17 20:00 Room Air 04/23/17 16:55 36.5 82 16 106/62 (77) 98 Room Air 04/23/17 16:00 98 Room Air 04/23/17 12:53 60 14 94/55 (68) 96 Room Air 04/23/17 12:00 Room Air 04/23/17 11:32 53 20 100/56 (71) 99 Room Air 04/23/17 11:15 55 20 95/51 (66) 99 Room Air 04/23/17 10:57 71 20 93/56 (68) 99 Room Air Physical Exam General Appearance: no apparent distress Eyes: PERRL ENT: hearing grossly normal, TMs normal Neck: supple, thyroid normal, no JVD Respiratory/Chest: lungs clear, normal breath sounds, no respiratory distress, no accessory muscle use Cardiovascular: regular rate, rhythm, no edema, no gallop, no JVD, no murmur Abdomen: normal bowel sounds, soft, no organomegaly, no pulsatile mass, + tenderness (generazlied tenderness w/ palpation, no guarding or rebound) Neurologic/Psych: alert, normal mood/affect, oriented x 3 Skin: normal color, no jaundice, warm/dry Laboratory Results Last 24 Hours Test 04/23/17 13:14 04/23/17 16:19 04/23/17 19:21 04/24/17 04:00 Phosphorus Level 4.2 mg/dl Magnesium Level 2.3 mg/dl Hemoglobin 8.5 g/dL Hematocrit 27.4 % Bedside Glucose 177 mg/dl 165 mg/dl Test 04/24/17 05:44 White Blood Count 11.61 K/uL Red Blood Count 3.53 M/uL Hemoglobin 8.4 g/dL Hematocrit 26.7 % Mean Corpuscular Volume 75.6 fL Mean Corpuscular Hemoglobin 23.8 pg Mean Corpuscular Hemoglobin Concent 31.5 g/dl RDW Standard Deviation 40.0 fL RDW Coefficient of Variation 14.5 % Platelet Count 366 K/uL Mean Platelet Volume 8.9 fL Nucleated RBC Absolute Count (auto) 0.02 K/uL Nucleated Red Blood Cells % 0.2 % Sodium Level 137 mmol/L Potassium Level 3.9 mmol/L Chloride Level 106 mmol/L Carbon Dioxide Level 24 mmol/L Anion Gap 7.0 mmol/L Blood Urea Nitrogen 17 mg/dl Creatinine 0.74 mg/dl Est Creatinine Clear Calc Drug Dose 160.9 ml/min Estimated GFR () 143.5 Estimated GFR (Non- 123.8 BUN/Creatinine Ratio 22.4 Random Glucose 155 mg/dl Calcium Level 8.5 mg/dl Phosphorus Level 1.6 mg/dl Magnesium Level 2.4 mg/dl Albumin 3.3 gm/dl Triglycerides Level 73 mg/dl Assessment and Plan 32 year old male with a complicated IBD history s/p total colectomy J Pouch creation. Reversal of ostomy in February w/ persistent rectal bleeding since then. Was admitted with hematemsis or BRBPR, S/P EGD/Colon without source of GI blood loss identified. He is on TPN. Continue TPN MR enterography Ok for daily labs GI ok for clear liquids Establish GI care as OP No GI contraindication to discharge, GI to sign off. Pt will need to establish with [facility] for continued care of his IBD. I have seen , examined and agree with the plan as outlined by JULIÁN Vu as above. -exam reveals soft abd -Spoke with Surgeon today, no evidence of Crohn's. No evidence of active disease for over one year -F/U with [facility] Dr. Sahni
--- NOTE | 2017-04-24 10:26 | Progress Note ---
Internal Med Progress Note Date of Service: Apr 24, 2017. Provider Documentation: SUBJECTIVE: Seen and examined at bedside No hematemesis Had small bloody BM today per patient Hb stable States Abdominal pain is much improved No other complaints OBJECTIVE: Vital Signs-as noted below Physical Exam: General Appearance:Moderately built and nourished, no apparent distress Head: normocephalic, Atraumatic Eyes: normal inspection, EOMI, PERRL Neck: supple, Trachea midline Respiratory/Chest: Normal breath sounds, CTA Cardiovascular: S1, S2, No murmur Abdomen/GI:Soft, RLQ tender, Bowel sounds present Extremities/Musculoskelatal:normal inspection, no edema Neurologic/Psych:AAOX3, grossly no focal neurological deficits Skin: normal color, warm Lab data as noted below. ASSESSMENT & PLAN: Patient is a 32 yr male with a PMH of complicated Crohn's disease who presents with hematemesis x 1 day and rectal bleeding x 1 month. Acute blood loss anemia: Secondary to hematemesis, rectal bleeding Hgb around 12 in Dec Hb:8.4 today Stable over the past few days monitor H&H Transfuse PRBC if hgb <8 Hematemesis: Resolved Protonix drip discontinued S/P Esophagogastroduodenoscopy and Pouchoscopy GI on board Crohn's flare: presents with rectal bleeding since 1 month and RLQ pain Complicated IBD history. S/P total colectomy J Pouch creation and reversal of ostomy Failed medical treatment for Crohn's and currently not on IBD meds On TPN and clear liquids PO DC IV solumedrol Q8 GI following Protonix drip discontinued S/P Pouchoscopy on 04/23: Ileoanal pouch is normal. Biopsied. Distal ileum Biopsied also S/P Esophagogastroduodenoscopy 04/23:normal Leukocytosis secondary to steroids appreciate GI input Allergic reaction to adhesives (Has PICC line): Benadryl PRN DVT Px: Teds Code status: Full Code Disposition: Plan to discharge home today Follow up with in 1 week for Primary Care Follow up with your Support Services Coordinator in [place] as advised Get MR enterography as outpatient Seek immediate medical attention if your symptoms reoccur or worsen PROCEDURES: Esophagogastroduodenoscopy: Impression: - Normal esophagus. - Normal stomach. Biopsied. - Normal examined duodenum. Biopsied. Recommendation: - Await pathology results. - [facility] Pouchoscopy: Impression: - Preparation of the colon was poor. - The ileoanal pouch is normal. Biopsied. - Biopsies were taken with a cold forceps for histology in the distal ileum. Recommendation:- [facility]. - Await pathology results. - MR Enterography, - Likely ok for D/C, not entirely sure of why not eating and on TPN, but no evidence of mucosal based disease on today's examination. Vital Signs: Date Time Temp Pulse Resp B/P (MAP) Pulse Ox O2 Delivery O2 Flow Rate FiO2 04/24/17 08:00 96 Room Air 04/24/17 07:48 36.6 79 18 116/61 (79) 96 Room Air 04/24/17 04:00 Room Air 04/24/17 03:55 36.7 81 16 115/69 (84) 94 Room Air 04/24/17 00:00 Room Air 04/23/17 23:40 36.9 95 16 112/54 (73) 95 Room Air 04/23/17 22:31 91 119/61 (80) 04/23/17 20:09 36.8 95 18 107/58 (74) 95 Room Air 04/23/17 20:00 Room Air 04/23/17 16:55 36.5 82 16 106/62 (77) 98 Room Air 04/23/17 16:00 98 Room Air 04/23/17 12:53 60 14 94/55 (68) 96 Room Air 04/23/17 12:00 Room Air 04/23/17 11:32 53 20 100/56 (71) 99 Room Air Lab Results: Results Past 24 Hours Test 04/23/17 13:14 04/23/17 16:19 04/23/17 19:21 04/24/17 04:00 Range/Units Phosphorus Level 4.2 2.5-4.9 mg/dl Magnesium Level 2.3 1.8-2.4 mg/dl Hemoglobin 8.5 14.0-18.0 g/dL Hematocrit 27.4 42-52 % Bedside Glucose 177 165 70-99 mg/dl Test 04/24/17 05:44 Range/Units White Blood Count 11.61 4.8-10.8 K/uL Red Blood Count 3.53 4.7-6.1 M/uL Hemoglobin 8.4 14.0-18.0 g/dL Hematocrit 26.7 42-52 % Mean Corpuscular Volume 75.6 80-100 fL Mean Corpuscular Hemoglobin 23.8 25-34 pg Mean Corpuscular Hemoglobin Concent 31.5 32-36 g/dl RDW Standard Deviation 40.0 36.4-46.3 fL RDW Coefficient of Variation 14.5 11.5-14.5 % Platelet Count 366 130-400 K/uL Mean Platelet Volume 8.9 7.4-10.4 fL Nucleated RBC Absolute Count (auto) 0.02 0-0 K/uL Nucleated Red Blood Cells % 0.2 % Sodium Level 137 136-145 mmol/L Potassium Level 3.9 3.5-5.1 mmol/L Chloride Level 106 98-107 mmol/L Carbon Dioxide Level 24 21-32 mmol/L Anion Gap 7.0 3-11 mmol/L Blood Urea Nitrogen 17 7-18 mg/dl Creatinine 0.74 0.60-1.40 mg/dl Est Creatinine Clear Calc Drug Dose 160.9 ml/min Estimated GFR () 143.5 Estimated GFR (Non- 123.8 BUN/Creatinine Ratio 22.4 10-20 Random Glucose 155 70-99 mg/dl Calcium Level 8.5 8.5-10.1 mg/dl Phosphorus Level 1.6 2.5-4.9 mg/dl Magnesium Level 2.4 1.8-2.4 mg/dl Albumin 3.3 3.4-5.0 gm/dl Triglycerides Level 73 0-150 mg/dl Microbiology Results 04/24/17 C.difficile Toxin B Gene (PCR) - Final, Complete No C. difficile toxin B gene detected
[2017-04-24] MEDS ORDERED: SODIUM PHOSPHATE 3 MMOL/1 ML INFUSION IV ONE (10:30)
[2017-04-24] MEDS ORDERED: SODIUM PHOSPHATE INJ 15 MMOL in SODIUM CHLORIDE 0.9% 250ML 250 ML IV ONE (10:30)
--- NOTE | 2017-04-24 11:23 | Discharge Summary ---
Discharge Summary Date of Service Apr 24, 2017. Discharge Summary Admission Date: Apr 22, 2017 at 15:45 Discharge Date: Apr 24, 2017 Discharge Disposition: Home Principal Diagnosis: GI bleed Procedures: ABD X ray: 1. No free air. 2. Slight increase in moderate gaseous distention of multiple bowel loops since exam of April 20, 2017. This is nonspecific given previous bowel resection and may present chronic small bowel dilatation or a small bowel obstruction. 3. No acute cardiopulmonary findings. Esophagoduodenoscopy: Impression: - Normal esophagus. - Normal stomach. Biopsied. - Normal examined duodenum. Biopsied. Recommendation: - Await pathology results. - [facility]. Colonoscopy: Impression: - Preparation of the colon was poor. - The ileoanal pouch is normal. Biopsied. - Biopsies were taken with a cold forceps for histology in the distal ileum. Recommendation: - [facility] to [facility]. - Await pathology results. - MR Enterography, - Likely ok for D/C, not entirely sure of why not eating and on TPN, but no evidence of mucosal based disease on today's examination. Consultations: GI Pending Studies/Follow-Up: Follow up with in 1 week for Primary Care Follow up with your Tilt[employer]or Crew Chief in [place] as advised Get MR enterography as outpatient as advised Seek immediate medical attention if your symptoms reoccur or worsen Medication Reconciliation Continued Medications: Tpn Infusion (Tpn Infusion) 1 Ea Inj 1 DOSE IV DAILY Admission Information HPI (per Admitting provider): This is a 32yo M with a PMH of complicated Crohn's disease who presents with hematemesis x 1 day and rectal bleeding x 1 month. Patient has followed with [facility] gastroenterology and colorectal surgery but recently was seen in [place] for a second opinion. Patient has tried multiple medications for IBD management without success. Underwent a total colectomy in 2013 followed by creation of a J pouch in 2014, with reversal and then another loop ileostomy in 2015. In February of 2017, patient underwent an ileostomy reversal. Experienced obstructive symptoms in early March and was started on TPN. Has been experiencing bright red rectal bleeding over the past month. Usually has a loose bowel movement every few hours but frequency has decreased to 1-2 bowel movements per day. Still endorses 1-2 episodes of bloody stool per day. Hgb has downtrended from 12 to 8. Patient had an episode of hematemesis this morning. Associated with nausea. Also endorses RLQ pain that is stabbing and constant. Worse when lying down or exerting himself. Was seen in the ED a few days ago for this abdominal pain and CT abd pelvis showed slight increase of gaseous distension that may represent chronic small bowel dilatation vs. SBO. Patient is not on any home medications. Denies fever, chills, lightheadedness, headache, visual changes, chest pain, SOB or LE swelling. Physical Exam (per Admitting): General Appearance: WD/WN, no apparent distress Head: normocephalic, atraumatic Eyes: normal inspection, PERRL, sclerae normal ENT: normal ENT inspection, hearing grossly normal, pharynx normal (dry mucous membranes ) Neck: supple, thyroid normal, trachea midline Respiratory/Chest: chest non-tender, lungs clear, normal breath sounds Cardiovascular: regular rate, rhythm, no murmur, normal peripheral pulses Abdomen/GI: normal bowel sounds, soft, no organomegaly, + tenderness (TTP, most in RLQ. Mild distention ) Back: normal inspection Extremities/Musculoskelatal: normal inspection, no calf tenderness, no pedal edema, + pertinent finding (LUE PICC line ) Neurologic/Psych: no motor/sensory deficits, alert, normal mood/affect, oriented x 3 Skin: normal color, warm/dry Hospital Course Patient is a 32 yr male with a PMH of complicated Crohn's disease who presents with hematemesis x 1 day and rectal bleeding x 1 month. Acute blood loss anemia: Secondary to hematemesis, rectal bleeding Hgb around 12 in Dec Hb:8.4 today Stable over the past few days monitor H&H Transfuse PRBC if hgb <8 Hematemesis: Resolved Protonix drip discontinued S/P Esophagogastroduodenoscopy and colonoscopy GI on board Possible Crohn's flare: presents with rectal bleeding since 1 month and RLQ pain Complicated IBD history. S/P total colectomy J Pouch creation and reversal of ostomy Failed medical treatment for Crohn's and currently not on IBD meds On TPN and clear liquids PO DC IV solumedrol Q8 GI following Protonix drip discontinued S/P Pouchoscopy on 04/23: Ileoanal pouch is normal. Biopsied. Distal ileum Biopsied also S/P Esophagogastroduodenoscopy 04/23:normal Leukocytosis secondary to steroids appreciate GI input Allergic reaction to adhesives (Has PICC line): Benadryl PRN DVT Px: Teds Code status: Full Code Disposition: Plan to discharge home today Follow up with in 1 week for Primary Care Follow up with your Tilt[employer] Crew Chief in [place] as advised Get MR enterography as outpatient Seek immediate medical attention if your symptoms reoccur or worsen PROCEDURES: Esophagogastroduodenoscopy: Impression: - Normal esophagus. - Normal stomach. Biopsied. - Normal examined duodenum. Biopsied. Recommendation: - Await pathology results. - [facility]. Pouchoscopy: Impression: - Preparation of the colon was poor. - The ileoanal pouch is normal. Biopsied. - Biopsies were taken with a cold forceps for histology in the distal ileum. Recommendation:- [facility]. - Await pathology results. - MR Enterography, - Likely ok for D/C, not entirely sure of why not eating and on TPN, but no evidence of mucosal based disease on today's examination. Total time spent on discharge = 33 minutes This includes examination of the patient, discharge planning, medication reconciliation, and communication with other providers. Discharge Instructions Discharge Instructions Date of Service Apr 24, 2017. Admission Reason for Admission: Crohns Disease, Hematemesis Discharge Discharge Diagnosis / Problem: Crohn's disease Discharge Goals Goal(s): Decrease discomfort, Improve function Activity Recommendations Activity Limitations: resume your previous activity Exercise/Sports Limitations: as tolerated . Instructions / Follow-Up Instructions / Follow-Up Follow up with in 1 week for Primary Care Follow up with your Tiltrotor Crew Chief in [place] as advised Get MR enterography as outpatient as advised Seek immediate medical attention if your symptoms reoccur or worsen Current Hospital Diet Patient's current hospital diet: Clear Liquid Diet Discharge Diet Recommended Diet: Clear Liquid Diet Pending Studies Studies pending at discharge: no Laboratory Results Lipid Panel Test 04/24/17 05:44 Range/Units Triglycerides Level 73 0-150 mg/dl Medical Emergencies . Who to Call and When: Medical Emergencies: If at any time you feel your situation is an emergency, please call 911 immediately. . Non-Emergent Contact Non-Emergency issues call your: Primary Care Provider, [employer] Chief Call Non-Emergent contact if: you have a fever, your pain is not controlled, your pain is worsening, your pain is unusual for you, your pain is concerning you, you have any medication questions Seek immediate medical attention if your symptoms reoccur or worsen . . "Provider Documentation" section prepared by Brigido Spears. . VTE Core Measure Inpt VTE Proph given/why not?: Elyse Estrada
[2017-04-24 11:27] VITALS: BP 101/52; PULSE 70; TEMP 36.6; O2SAT 97
[2017-04-24 11:43] VITALS: BP 101/52; PULSE 70; TEMP 36.6; O2SAT 97
[2017-04-24] MEDS ORDERED: CUSTOM CENTRAL PN 1 BAG IV SCH (19:00)
[2017-04-25] MEDS ORDERED: STOP ORDER: TPN ONE (07:00)
== END 2017-04-24 14:24 | disposition home health service (06) | DRG 378 ==
LOC: C.EDB 11:49 → C.2T 15:45 → ENRESERV 16:06
PROVIDERS: ADMIT Family Medicine; ATTEND Internal Medicine
PROC: 0DBB8ZX Excision of Ileum, Via Natural or Artificial Opening Endoscopic, Diagnostic (ICD-10-PCS; principal; 2017-04-23 09:22)
PROC: 0DB68ZX Excision of Stomach, Via Natural or Artificial Opening Endoscopic, Diagnostic (ICD-10-PCS; principal; 2017-04-23 09:22)
PROC: 0DB98ZX Excision of Duodenum, Via Natural or Artificial Opening Endoscopic, Diagnostic (ICD-10-PCS; principal; 2017-04-23 09:22)
DX: K92.0 Hematemesis (principal); D62 Acute posthemorrhagic anemia; K50.911 Crohn's disease, unspecified, with rectal bleeding; T78.49XA Other allergy, initial encounter; Z90.49 Acquired absence of other specified parts of digestive tract; Z91.018 Allergy to other foods; Z91.048 Other nonmedicinal substance allergy status; Z82.49 Family history of ischemic heart disease and other diseases of the circulatory system; X58.XXXA Exposure to other specified factors, initial encounter

== ENCOUNTER 2017-10-08 09:59 | Emergency (ER) | payer OTHER ==
[~2017-10-08] VITALS: Ht 175.3 cm; Wt 95.3 kg
[~2017-10-08 09:59] MED LIST changes: +ONDA4TAB10 SL; -TPN IV
[2017-10-08 10:05] VITALS: TEMP 36.5; Ht 175.3 cm; Wt 95.3 kg
[2017-10-08] MEDS ORDERED: ONDANSETRON INJ 2 MG/ML 2 ML VIAL IV STA (10:36)
[2017-10-08] MEDS ORDERED: KETOROLAC TROMETHAMINE 30 MG/ML VIAL IV STA (10:36)
[2017-10-08] MEDS ORDERED: SODIUM CHLORIDE 0.9% 1000ML 1,000 ML IV STA (10:36)
[2017-10-08] MEDS ORDERED: DiphenhydrAMINE HCL 50 MG/ML VIAL IV STA ×2 (10:36→12:57)
[2017-10-08] MEDS ORDERED: OPTIRAY 320 IV PRN (10:45)
[2017-10-08] MEDS: MoRPHine SULFATE 4 MG/ML 1 ML CARP\\VIAL IV PRN ×2 (11:11→12:11)
[2017-10-08 11:20] LABS: BASO % 0.6 %; BASO ABS # 0.04 K/uL (0-0.2); EOS % 3.1 %; EOS ABS # 0.21 K/uL (0-0.5); HEMATOCRIT 38.3 % (42-52); IG# 0.05 K/uL (0.00-0.02); LYMPH % 31.5 %; LYMPH ABS # 2.13 K/uL (1.2-3.4); MEAN CELL VOLUME 89.3 fL (80-100); MEAN CORPUSCULAR HEMOGLOBIN 30.3 pg (25-34); MEAN CORPUSCULAR HGB CONC 33.9 g/dl (32-36); MEAN PLATELET VOLUME 9.5 fL (7.4-10.4); MONO % 9.9 %; MONO ABS # 0.67 K/uL (0.11-0.59); NEUT % 54.2 %; NEUT ABS # 3.66 K/uL (1.4-6.5); PLATELET COUNT 279 K/uL (130-400); RED CELL DISTRIBUTION WIDTH CV 13.3 % (11.5-14.5); RED CELL DISTRIBUTION WIDTH SD 42.9 fL (36.4-46.3); WHITE BLOOD COUNT 6.76 K/uL (4.8-10.8)
[2017-10-08 11:31] LABS: PTT PATIENT 28.5 SECONDS (21.0-31.0)
[2017-10-08 11:41] LABS: CALCIUM 9.5 mg/dl (8.5-10.1); CREATININE 0.74 mg/dl (0.60-1.40); POTASSIUM 3.6 mmol/L (3.5-5.1); TOTAL PROTEIN 7.7 gm/dl (6.4-8.2)
--- NOTE | 2017-10-08 12:50 | DIAGNOSTIC IMAGING REPORT ---
ABD/PELVIS IV CONTRAST ONLY CT DOSE: 916.52 mGycm HISTORY: Pain ABD PAIN, POSS OBSTRUCTION, IV CONTRAST ONLY TECHNIQUE: Multiaxial CT images of the abdomen and pelvis were performed following the use of intravenous contrast. A dose lowering technique was utilized adhering to the principles of ALARA. COMPARISON STUDY: 08/21/2017. 04/20/2017 FINDINGS: Lung bases are clear. Liver enhances uniformly. Cholecystectomy. Pancreas and spleen are unremarkable. Unchanging hyperdense nodule superior pole right kidney. It is negative for hydronephrosis hydronephrosis. Enhancement is uniform. Unchanging postoperative changes consistent with a complete colectomy and ileoanal pouch anastomosis. Bladder is midline. Parenchymal scar formation right anterior abdominal wall. This is unchanged. Mild small bowel distention at this site diminished from the prior study. IMPRESSION: 1. Stable nonobstructive postoperative changes as described. 2. Mild small bowel distention anterior mid abdomen with no well-defined obstructive characteristics. 3. Appearance overall is improved compared to the prior study. 4. Contrast within the patient's ileoanal pouch anastomosis. Operative changes consistent with a prior total colectomy The above report was generated using voice recognition software. It may contain grammatical, syntax or spelling errors. Electronically signed by: Chetan Galindo M.D. 10/08/2017 12:48 PM Dictated Date/Time: 10/08/2017 12:40 PM
[2017-10-08] MEDS ORDERED: HYDROmorphone INJ 0.5 MG/0.5 ML SYR IV STA (12:57)
[2017-10-08 13:06] VITALS: BP 117/82; PULSE 65; O2SAT 98
--- NOTE | 2017-10-08 14:15 | EMERGENCY ROOM VISIT NOTE ---
History Report prepared by Reed: Marisa Ramirez Under the Supervision of: Dr. Delmar Green M.D. First contact with patient: 10:32 Chief Complaint: ABDOMINAL PAIN Stated Complaint: ABDOMINAL PAIN, BLEEDING, CONSTIPATION Nursing Triage Summary: pt reports right lower abd pain since last night. pt reports he has a j pouch and normally has a bm approx every hour and has not had a bm in the past 7 hours. pt reports nausea. pt reports "i feel like i have a bowel obstruction." pt reports hx of bowel obsturctions in the past. History of Present Illness The patient is a 32 year old male who presents to the Emergency Room with complaints of constant abdominal pain that onset 9 hours ago. The patient rates this pain a 7/10 in severity. The patient notes that he has Crohn's disease and has a J-pouch that causes him to have bowel movements every hour. The patient notes that he has not had a bowel movement in 9 hours. He notes that he had hematochezia and his last bowel movement was hard to pass. The patient complains of abdominal bloating and nausea. The patient denies abdominal distention, vomiting, urinary symptoms, and fever. The patient states that he had an obstruction in February or 2016 that was operated on in [place]. The patient also notes that he has had 2 blockages in the past that have opened up without surgery. He notes that he was not distended with any of his prior blockages. He states that he has an a-port. Source of History: patient Onset: 9 hours ago Position: abdomen Symptom Intensity: 7/10 severity Timing: constant Associated Symptoms: + nausea, + abdominal pain, No fevers, No vomiting, No urinary symptoms Note: The patient denies abdominal distension. Review of Systems See HPI for pertinent positives & negatives. A total of 10 systems reviewed and were otherwise negative. Past Medical & Surgical Medical Problems: (1) Acute Crohn's disease (2) Anemia (3) Crohns disease (4) On total parenteral nutrition (TPN) (5) PICC (peripherally inserted central catheter) in place (6) total proctocolectomy and ileal pouch anal anastomosis Surgical Problems: (1) H/O total colectomy Family History Cancer Hypertension Social History Smoking Status: Never Smoker Alcohol Use: none Drug Use: none Marital Status: single Housing Status: lives with family Occupation Status: unemployed Current/Historical Medications No Active Prescriptions or Reported Meds Allergies Coded Allergies: Mushroom (Verified Allergy, Severe, ANAPHYLAXIS, 09/03/17) Adhesives (Verified Allergy, Intermediate, RASH, 09/03/17) Physical Exam Vital Signs Date Time Temp Pulse Resp B/P (MAP) Pulse Ox O2 Delivery O2 Flow Rate FiO2 10/08/17 13:06 65 16 117/82 98 Room Air 10/08/17 12:08 65 16 113/76 98 Room Air 10/08/17 11:11 78 16 126/88 94 Room Air 10/08/17 10:05 36.5 93 18 130/85 94 Room Air Physical Exam GENERAL: Patient is in no acute distress. HEENT: No acute trauma, normocephalic atraumatic, mucous membranes moist, no nasal congestion, no scleral icterus. NECK: No stridor, no adenopathy, no meningismus, trachea is midline. LUNGS: Clear to auscultation bilaterally, no wheeze, no rhonchi, breath sounds equal. HEART: Without murmurs gallops or rubs, regular rate and rhythm. ABDOMEN: Soft, bowel sounds positive, no hernias, no peritonitis. Tender primarily in the right lower quadrant. EXTREMITIES: No cyanosis or edema, full range of motion of all the joints without pain or difficulty, no signs for acute trauma. NEUROLOGIC: Oriented x 3, no acute motor or sensory deficits, no focal weakness. SKIN: No rash, no jaundice, no diaphoresis. Medical Decision & Procedures ER Provider Diagnostic Interpretation: Radiology results as stated below per my review and radiologist interpretation: ABD/PELVIS IV CONTRAST ONLY CT DOSE: 916.52 mGycm HISTORY: Pain ABD PAIN, POSS OBSTRUCTION, IV CONTRAST ONLY TECHNIQUE: Multiaxial CT images of the abdomen and pelvis were performed following the use of intravenous contrast. A dose lowering technique was utilized adhering to the principles of ALARA. COMPARISON STUDY: 08/21/2017. 04/20/2017 FINDINGS: Lung bases are clear. Liver enhances uniformly. Cholecystectomy. Pancreas and spleen are unremarkable. Unchanging hyperdense nodule superior pole right kidney. It is negative for hydronephrosis hydronephrosis. Enhancement is uniform. Unchanging postoperative changes consistent with a complete colectomy and ileoanal pouch anastomosis. Bladder is midline. Parenchymal scar formation right anterior abdominal wall. This is unchanged. Mild small bowel distention at this site diminished from the prior study. IMPRESSION: 1. Stable nonobstructive postoperative changes as described. 2. Mild small bowel distention anterior mid abdomen with no well-defined obstructive characteristics. 3. Appearance overall is improved compared to the prior study. 4. Contrast within the patient's ileoanal pouch anastomosis. Operative changes consistent with a prior total colectomy The above report was generated using voice recognition software. It may contain grammatical, syntax or spelling errors. Electronically signed by: Chetan Galindo M.D. 10/08/2017 12:48 PM Dictated Date/Time: 10/08/2017 12:40 PM Laboratory Results 10/08/17 11:03 Red Blood Count 4.29, Mean Corpuscular Volume 89.3, Mean Corpuscular Hemoglobin 30.3, Mean Corpuscular Hemoglobin Concent 33.9, Mean Platelet Volume 9.5, Neutrophils (%) (Auto) 54.2, Lymphocytes (%) (Auto) 31.5, Monocytes (%) (Auto) 9.9, Eosinophils (%) (Auto) 3.1, Basophils (%) (Auto) 0.6, Neutrophils # (Auto) 3.66, Lymphocytes # (Auto) 2.13, Monocytes # (Auto) 0.67, Eosinophils # (Auto) 0.21, Basophils # (Auto) 0.04 10/08/17 11:03 Test 10/08/17 11:03 White Blood Count 6.76 K/uL (4.8-10.8) Red Blood Count 4.29 M/uL (4.7-6.1) Hemoglobin 13.0 g/dL (14.0-18.0) Hematocrit 38.3 % (42-52) Mean Corpuscular Volume 89.3 fL (80-100) Mean Corpuscular Hemoglobin 30.3 pg (25-34) Mean Corpuscular Hemoglobin Concent 33.9 g/dl (32-36) Platelet Count 279 K/uL (130-400) Mean Platelet Volume 9.5 fL (7.4-10.4) Neutrophils (%) (Auto) 54.2 % Lymphocytes (%) (Auto) 31.5 % Monocytes (%) (Auto) 9.9 % Eosinophils (%) (Auto) 3.1 % Basophils (%) (Auto) 0.6 % Neutrophils # (Auto) 3.66 K/uL (1.4-6.5) Lymphocytes # (Auto) 2.13 K/uL (1.2-3.4) Monocytes # (Auto) 0.67 K/uL (0.11-0.59) Eosinophils # (Auto) 0.21 K/uL (0-0.5) Basophils # (Auto) 0.04 K/uL (0-0.2) RDW Standard Deviation 42.9 fL (36.4-46.3) RDW Coefficient of Variation 13.3 % (11.5-14.5) Immature Granulocyte % (Auto) 0.7 % Immature Granulocyte # (Auto) 0.05 K/uL (0.00-0.02) Prothrombin Time 10.3 SECONDS (9.0-12.0) Prothromb Time International Ratio 1.0 (0.9-1.1) Activated Partial Thromboplast Time 28.5 SECONDS (21.0-31.0) Partial Thromboplastin Ratio 1.1 Urine Color YELLOW Urine Appearance CLEAR (CLEAR) Urine pH 5.0 (4.5-7.5) Urine Specific [place] 1.025 (1.000-1.030) Urine Protein NEG (NEG) Urine Glucose (UA) NEG (NEG) Urine Ketones NEG (NEG) Urine Occult Blood NEG (NEG) Urine Nitrite NEG (NEG) Urine Bilirubin NEG (NEG) Urine Urobilinogen NEG (NEG) Urine Leukocyte Esterase NEG (NEG) Anion Gap 7.0 mmol/L (3-11) Est Creatinine Clear Calc Drug Dose 166.3 ml/min Estimated GFR () 143.5 Estimated GFR (Non- 123.8 BUN/Creatinine Ratio 17.9 (10-20) Calcium Level 9.5 mg/dl (8.5-10.1) Magnesium Level 2.1 mg/dl (1.8-2.4) Total Bilirubin 0.6 mg/dl (0.2-1) Aspartate Amino Transf (AST/SGOT) 14 U/L (15-37) Alanine Aminotransferase (ALT/SGPT) 32 U/L (12-78) Alkaline Phosphatase 85 U/L (45-117) Total Protein 7.7 gm/dl (6.4-8.2) Albumin 4.0 gm/dl (3.4-5.0) Globulin 3.7 gm/dl (2.5-4.0) Albumin/Globulin Ratio 1.1 (0.9-2) Lipase 59 U/L (73-393) Laboratory results reviewed by me. Medications Administered Medications (Trade) Dose Ordered Sig/Tiffany Route Start Time Stop Time Status Last Admin Dose Admin Ondansetron HCl (Zofran Inj) 4 mg NOW STAT IV 10/08/17 10:36 10/08/17 10:39 DC 10/08/17 11:11 4 MG Sodium Chloride 1,000 ml @ 999 mls/hr Q1H1M STAT IV 10/08/17 10:36 10/08/17 11:36 DC 10/08/17 11:11 999 MLS/HR Ketorolac Tromethamine (Toradol Inj) 15 mg NOW STAT IV 10/08/17 10:36 10/08/17 10:39 DC 10/08/17 11:12 15 MG Diphenhydramine HCl (Benadryl Inj) 50 mg NOW STAT IV 10/08/17 10:36 10/08/17 10:39 DC 10/08/17 11:10 50 MG Morphine Sulfate (MoRPHine SULFATE INJ) 4 mg NOW PRN IV 10/08/17 10:45 10/08/17 13:51 DC 10/08/17 12:11 4 MG Diphenhydramine HCl (Benadryl Inj) 25 mg NOW STAT IV 10/08/17 12:57 10/08/17 12:58 DC 10/08/17 13:09 25 MG Hydromorphone HCl (Dilaudid Inj) 0.5 mg NOW STAT IV 10/08/17 12:57 10/08/17 12:58 DC 10/08/17 13:09 0.5 MG Heparin Sodium (Porcine) (Heparin 100 Unit/ml 5ml Flush) 5 ml STK-MED ONCE .ROUTE 10/08/17 13:30 10/08/17 13:31 DC 10/08/17 13:36 5 ML ED Course 1033: The patient was evaluated in room A3. A complete history and physical exam was performed. 1036: Ordered Benadryl Inj 50 mg IV, Toradol Inj 15 mg IV, Sodium Chloride 1, 000 ml @ 999 mls/hr IV. 1045: Ordered Zofran Inj 4 mg IV, Morphine Sulfate 4 mg IV. 1259: Discussed the patient's case with Dr. Jorge Bryant. He recommended a hospital stay. 1257: Dilaudid Inj 0.5 mg IV, Benadryl IV 25 mg. 1307: Reevaluated the patient and he does not want to stay. Discussed results and discharge instructions: He verbalized understanding and agreement. The patient is ready for discharge. Medical Decision Differential diagnoses include: bowel obstruction, ileus, constipation, electrolyte imbalance, hernia, bowel rupture, Crohn's flare. There is no leukocytosis or concerning anemia. No significant electrolyte abnormality, kidney failure, hepatitis or pancreatitis. Urinalysis does not show evidence for infection. Abdominal and pelvis CT show some small bowel distention, no bowel obstruction. No evidence for abscess. On exam, the patient was not toxic or febrile. The patient received IV saline, IV Toradol and IV Zofran. He was given IV morphine, several doses were administered. He received IV Dilaudid. He received IV Benadryl because of his history of itching with adhesives. I did speak with on-call GI. A hospital stay for observation/workup was advised. The patient though does not want to stay in the hospital. He did ask for discharge. He has agreed to return if worsening. He knows his disease well and states that he can return if things are worsening. A bland diet was suggested. Outpatient follow-up was suggested. Of note, the patient left after his requested discharge. He did inform the nursing staff that he was going to have a ride home. He was observed by staff getting in his car and driving off. A note was placed in his chart because of this behavior. He had been told that he could not drive after receiving narcotic medication in our ED. In short, the cause for the pain is unclear. He was encouraged to return if worsening, he has chosen to go home despite recommendations for a hospital stay. Medication Reconcilliation Current Medication List: was personally reviewed by me Blood Pressure Screening Patient's blood pressure: Normal blood pressure Consults Time Called: 1250 Consulting Physician: Dr. Jorge Bryant. Returned Call: [phone] Discussed the patient's case with Dr. Jorge Bryant. He recommended a hospital stay. Impression Primary Impression: Diffuse abdominal pain Additional Impressions: Nausea Crohns disease Scribe Attestation The scribe's documentation has been prepared under my direction and personally reviewed by me in its entirety. I confirm that the note above accurately reflects all work, treatment, procedures, and medical decision making performed by me. Departure Information Dispostion Home / Self-Care Prescriptions No Active Prescriptions or Reported Meds Referrals Olaf Travis M.D. (PCP) Forms HOME CARE DOCUMENTATION FORM, IMPORTANT VISIT INFORMATION Patient Instructions My [facility] Additional Instructions bland diet--crackers, soup, toast, gatorade, rice all meds otherwise as before return for worsening symptoms, vomiting or fever or if not improving as we discussed a hospital stay today was recommended but you have chosen to go home Problem Qualifiers
== END 2017-10-08 13:35 | disposition home or self-care (01) ==
LOC: C.EDB 10:00 → C.EDA 13:35
DX: R10.31 Right lower quadrant pain (principal); R11.0 Nausea; K50.90 Crohn's disease, unspecified, without complications; Z91.048 Other nonmedicinal substance allergy status; Z91.018 Allergy to other foods

== ENCOUNTER 2019-09-04 13:33 | Inpatient (IN) ==
[2019-09-04] MEDS ORDERED: MoRPHine SULFATE 2 MG/ML CARP IV STA (19:25)
--- NOTE | 2019-09-04 20:02 | History & Physical Report ---
Date of Service September 04, 2019 Assessment & Plan (1) Small bowel obstruction: 34yo C male with history of Crohns disease s/p colectomy, s/p open repair of incisional hernia POD #4 presenting with SBO. Patient presently afebrile, HD stable, in mild distress secondary to pain but non-toxic -Admission to medical floor -Place NGT to low intermittent suction -IVF and electrolyte repletion -NPO -Control of pain and nausea as needed -General Surgery assistance appreciated Present on Admission?: Yes (2) Crohns disease: S/p colectomy with post-operative SBO -Management as above F/E/N - LR at 100mL/hr, monitor electrolytes and replete as needed, NPO for now Ppx - Lovenox Code - Full Dispo - Admit to medical floor Present on Admission?: Yes Admission and Anticipated Discharge Date Admission Date: September 04, 2019 Anticipated date of discharge: 09/06/19 History of Present Illness Chief Complaint: Abdominal pain Primary Care Provider: Jamison Torres is a 34yo C male with history of Crohns Disease s/p total colectomy with anastamosis. Patient had an incisional hernia s/p open repair performed on 08/31/[address] Orellana. Surgery went well with no immediate complications identified. He was discharged home and was doing fairly well. Over the past 48 hours he has had increase in RLQ abdominal pain as well as post-prandial nausea and vomiting. He denies BM or passage of flatus for the past 36 hours. He presented to the ER at [facility]. CT of the abdomen was obtained which confirmed SBO. Patient was subsequently transferred to [facility] for Surgical evaluation. Patient presently complaining of RLQ abdominal pain as well as some itching at the site of his tape. Also with subjective fevers and chills. No additional complaints at this time. He denies CP/SOB/cough. No sick contacts, no recent travel, no contact with individuals positive for SARS-CoV-2. Allergies Allergy/AdvReac Type Severity Reaction Status Date / Time mushroom Allergy Severe ANAPHYLAXIS Verified 08/25/19 11:33 adhesive Allergy Intermediate Hives WITH Verified 08/25/19 11:33 ANY TAPE/BANDAIDS Home Medications Home Medications Medication Instructions Recorded Confirmed Type ondansetron HCl [Zofran] 4 mg PO Q6H PRN #20 tab 04/24/19 09/04/19 Rx Medical Marijuana INHALATION 08/25/19 History oxycodone-acetaminophen [Percocet] 1 tab PO Q6H PRN #30 tab 08/31/19 Rx oxycodone-acetaminophen [Percocet] 1 tab PO Q6H PRN #30 tab 08/31/19 09/04/19 Rx Past Med/Surg History Medical History (Updated 09/04/19 @ 20:29 by Jennifer Sepulveda DO) Anemia HX Anxiety Crohns disease (Chronic) follows with Dr. Patel Hx of chest pain ~04/2019-05/2019 -- pcp sent patient to [facility], diagnosed with anxiety per patient. full cardiac work up (echo,ekg,stress test) was negative. 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 Beliefs That Will Affect Care: None Current Living Situation: Family Other Information That Helps Us Care for You: No Feels Safe at Home: Yes Safety Concerns: Feels Safe At This Time Smoking Status: Never smoker Second Hand Exposure: No ; Hx Alcohol Use: No Hx Substance Use: No Review of Systems Review of Systems: All systems reviewed & are unremarkable except as noted in HPI & below Physical Exam Physical Exam: General: patient resting supine, in mild distress secondary to pain, non-toxic in appearance, AA&O x 4 Skin: warm, dry, abdominal surgical site with dressing in place, c/d/i, wound well approximated with etta in place, no bleeding/drainage/dehiscence or erythema HEENT: NC/AT, PERRL, EOMI, anicteric sclera, conjunctiva without injection, external ear normal to inspection and nontender, nares patent, slightly dry mucus membranes, dentition intact, no oropharyngeal lesions, neck supple, trachea midline, no LAD, no thyromegaly, no JVD Heart: +S1/S2, regular, no m/r/g Lungs: equal air entry bilaterally, no rales/rhonchi/wheezes Abd: Diminished bowel sounds, soft, +tenderness in RLQ. surgical site as above, no masses/organomegaly/ascites Ext: warm, 2+ pulses in UE/LE bilaterally, no clubbing/cyanosis or edema Neuro: nonfocal, patient AA&O x 4, speech intact, no facial droop, moving all extremities on command with equal strength 5/5 Results & Data Results & Data ([facility]) Vital Signs (Past 12 Hours) Vital Signs Temp Pulse Resp BP Pulse Ox 09/04/19 18:59 36.5 C 86 22 122/85 95 Laboratory Results From [facility]: WBC=11.63 Hgb=16.8 Hct=50 Jpg=831 Rcyyqac=187 BUN=27.5 Cr=1.52 TProtein = 10 Alb=4.1 Globulin=5.9 Ca=10.7 Tbili=2.1 Gp=671 LO=871 AST=94 ONE=189 Lactate=1.7 INR=1.[address] Abdomen and Pelvis with Contrast - Performed at [facility] -Gallbladder is surgicallyl absent. The liver, spleen, pancreas and adrenal glands demonstrate no abnormality. No solid renal lesions. Right renal cyst is present. No hydronephrosis. Urinary bladder and reproductive organs are grossly unremarkable. Prior colonic resection is noted. There are multiple abnormally distended loops of bowel in the central abdomen, measuring uip to approximately 5cm in diameter. More distal loops of bowel are normal in caliber. A history of recent hernia repair is noted. There is multiloculated fluid and gas attenuation in the right lower abdominal wall, underlying cutaneous stable line. No free intraperitoneal air is grossly evident. Va scular structures demonstrate no acute abnormality. No abnormally enlarged intra-abdominal lymph nodes are identified. Osseous structures demonstrate no lytic or blastic lesions. No consolidation is identified at either lung base. ECG Additional Comments: From OSH - ST at 120, normal axis, AR=868, QRS=82, QTc-339, non-specific ST changes Code Status & VTE Plan Code Status FULL VTE Prophylaxis Plan VTE Prophylaxis will be ordered: Yes PG Care Time/CCT Total # of Minutes Spent Total Time Spent with Patient: Total time spent is greater than 50% in coordination of care (as documented) at patient's floor/unit and/or counseling patient: Coding Level of Care Code 42301 Initial Inpt Care Lvl 2 Diagnoses Small bowel obstruction K56.609 Crohns disease K50.919 Gastrointestinal tract location: unspecified location Digestive disease complication type: unspecified complication (1) Crohns disease Gastrointestinal tract location: unspecified location Digestive disease complication type: unspecified complication Qualified Code(s): K50.919 - Crohn's disease, unspecified, with unspecified complications
[2019-09-04] MEDS ORDERED: ACETAMINOPHEN 325 MG TAB PO PRN (20:09)
[2019-09-04] MEDS: LACTATED RINGER'S 1,000 ML IV SCH (20:31)
[2019-09-04] MEDS: ONDANSETRON INJ 2 MG/ML 2 ML VIAL IV PRN (20:31)
[2019-09-04] MEDS: DiphenhydrAMINE HCL 50 MG/ML VIAL IV PRN (20:31)
--- NOTE | 2019-09-04 20:33 | Surgery Consultation ---
Date of Consultation September 04, 2019 Assessment & Plan (1) Small bowel obstruction: At this point I recommended to the patient and to Dr. Sepulveda that we inserted an NG tube try to decompress him continue with fluid resuscitation repeat a KUB in the morning and hopefully by that time we will have the image of the CAT scan downloaded At this time the patient does not have an acute abdomen and hopefully with the NG tube decompression and conservative management he will get through this Present on Admission?: Yes History of Present Illness Reason for Consultation: Bowel obstruction versus ileus Attending Physician: Jennifer Sepulveda, DO History of Present Illness I was called by the ER physician in [place] approximately 1:00 this afternoon for patient that was seen in the emergency room there presented with ileus versus bowel obstruction and tachycardia The patient had had a hernia fixed by Dr. Orellana approximately 4 days ago their office were notified and they referred to the surgeon on-call here In talking with the ER physician in [place] they had no surgical backup at that time and wished to be transferred here accepted the patient to be transferred to the ER and I would see that there At 6:00 I called [place] since I had not heard anything further for the patient and they said they were just leaving to come to [facility] Apparently the ER physician talked to the hospitalist and made him a direct admit This 34-year-old gentleman has had a colon resection with a J-pouch in the past had what appeared to be a 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 Orellana with mesh placement the size of the hernia defect was approximately 4 cm according to the operative dictation The patient was doing well until yesterday had multiple bouts of emesis did not go to the emergency room since he had attend to his son and went there today at about 9:00 in the morning He still has periodic emesis although at this period time he feels comfortable He takes Dilaudid for pain and that helps him since morphine does not help him Since his surgery he has not had any flatus or bowel movement Allergies Allergy/AdvReac Type Severity Reaction Status Date / Time mushroom Allergy Severe ANAPHYLAXIS Verified 08/25/19 11:33 adhesive Allergy Intermediate Hives WITH Verified 08/25/19 11:33 ANY TAPE/BANDAIDS Home Medications Home Medications Medication Instructions Recorded Confirmed Type ondansetron HCl [Zofran] 4 mg PO Q6H PRN #20 tab 04/24/19 09/04/19 Rx Medical Marijuana INHALATION 08/25/19 History oxycodone-acetaminophen [Percocet] 1 tab PO Q6H PRN #30 tab 08/31/19 Rx oxycodone-acetaminophen [Percocet] 1 tab PO Q6H PRN #30 tab 08/31/19 09/04/19 Rx Patient History Medical History (Updated 09/04/19 @ 20:29 by Jennifer Sepulveda DO) Anemia HX Anxiety Crohns disease (Chronic) follows with Dr. Patel Hx of chest pain ~04/2019-05/2019 -- pcp sent patient to [facility], diagnosed with anxiety per patient. full cardiac work up (echo,ekg,stress test) was negative. On total parenteral nutrition (TPN) (Chronic) hx Surgical History (Updated 08/25/19 @ 14:27 by Jillian Le DO) H/O total colectomy (Resolved) History of appendectomy (Resolved) History of cholecystectomy (Resolved) History of colonoscopy History of esophagogastroduodenoscopy (EGD) History of intestinal surgery (Resolved) J POUCH IN PLACE History of vascular access device (Resolved) PORT RIGHT CHEST IN PLACE Social History Preferred Language: Kazakh Communication Ability: Effective Visual Impairment: No Limitations Hearing Ability: Normal Gear Machine Operator Required: No Beliefs That Will Affect Care: None Current Living Situation: Family Other Information That Helps Us Care for You: No Feels Safe at Home: Yes Safety Concerns: Feels Safe At This Time Smoking Status: Never smoker Second Hand Exposure: No ; Hx Alcohol Use: No Hx Substance Use: No Physical Exam 2 Physical Exam: Patient is alert coherent in no distress vitals were noted Appears well-hydrated at this time Eyes: PERRL, conjunctivae normal, anicteric sclerae Respiratory: normal respiratory effort Cardiovascular: Rate/Rhythm: regular rate Gastrointestinal (Abdomen): The abdomen is slightly distended there is no tenderness except around the right lower quadrant incision which is about 4 inches long the etta are intact there is no drainage or cellulitis Results & Data Vital Signs (Past 12 Hours) Vital Signs Temp Pulse Resp BP Pulse Ox 06/26/20 18:59 36.5 C 86 22 122/85 95 Diagnostic Findings CAT scan report was discussed with Dr. Sepulveda apparently has loops of bowel that up to 5 cm in diameter The disc that was brought with the patient is presently being downloaded PG Care Time/CCT Total # of Minutes Spent Total Time Spent with Patient: Total time spent is greater than 50% in coordination of care (as documented) at patient's floor/unit and/or counseling patient: Coding Level of Care Code 02633 Inpt Consult Level 4 Diagnoses Small bowel obstruction K56.609
[2019-09-04] MEDS: HYDROmorphone INJ 0.5 MG/0.5 ML SYR IV PRN ×2 (20:59→23:28)
[2019-09-04 21:54] LABS: BUN Creatinine Ratio 23.2 (10-20); Calcium 9.2 mg/dl (8.5-10.1); Creatinine Clr Calc Pharmacy 153.5 ml/min; Est GFR (African American) 135.6
[2019-09-05] MEDS: HYDROmorphone INJ 0.5 MG/0.5 ML SYR IV PRN ×9 (01:46→22:35)
[2019-09-05] MEDS: DiphenhydrAMINE HCL 50 MG/ML VIAL IV PRN ×5 (01:47→19:32)
[2019-09-05] MEDS: HEPARIN 100 UNIT/ML 5ML FLUSH FLUSH PRN ×2 (05:58→22:35)
--- NOTE | 2019-09-05 07:29 | XRay Report ---
XR KUB/Abdomen 1 view CLINICAL HISTORY: Assess SBO COMPARISON STUDY: No previous studies for comparison. FINDINGS: Distended loops of small bowel extending to the right lower quadrant region. Postoperative changes are identified within the right lower quadrant. IMPRESSION: Ileus versus developing distal small bowel obstructive change. Nasogastric tube within t he gastric fundus. ACT 112: Negative or not required by law. The above report was generated using voice recognition software. It may contain grammatical, syntax or spelling errors. Electronically signed by: Chetan Galindo M.D. 09/05/2019 7:27 AM
--- NOTE | 2019-09-05 08:30 | Surgery Progress Note ---
Date of Service September 05, 2019 Assessment & Plan (1) Small bowel obstruction: 09/05/19 At this point I recommend taken out the NG tube and start him on a diet get rid of the IV analgesics and converted to something p.o. although he states the p.o. medicines that was given to him by Dr. Orellana did not work Likely keep him here today make sure that he is tolerating a diet and his pain is under control At this point I recommended to the patient and to Dr. Sepulveda that we inserted an NG tube try to decompress him continue with fluid resuscitation repeat a KUB in the morning and hopefully by that time we will have the image of the CAT scan downloaded At this time the patient does not have an acute abdomen and hopefully with the NG tube decompression and conservative management he will get through this Subjective Isidro feels a lot better this morning he is passing flatus his abdomen is less painful Physical Exam Physical Exam: He is fairly comfortable as had minimal NG output the incision and right lower quadrant is free of any drainage or cellulitis and is less tender than yesterday the abdomen is a bit softer Eyes: PERRL, conjunctivae normal, anicteric sclerae Respiratory: normal respiratory effort Cardiovascular: Rate/Rhythm: regular rate Results & Data Vital Signs (Past 12 Hours) Vital Signs Temp Pulse Resp BP Pulse Ox 09/05/19 07:05 36.8 C 93 H 14 134/78 91 09/05/19 03:57 36.9 C 111 H 14 128/82 92 09/04/19 23:50 36.9 C 97 H 18 126/82 91 PG Care Time/CCT Total # of Minutes Spent Total Time Spent with Patient: Total time spent is greater than 50% in coordination of care (as documented) at patient's floor/unit and/or counseling patient: Coding Level of Care Code 46157 Inpt Consult Level 3 Diagnoses Small bowel obstruction K56.609
[2019-09-05] MEDS: LACTATED RINGER'S 1,000 ML IV SCH ×2 (08:47→11:28)
--- NOTE | 2019-09-05 08:55 | Surgery Progress Note ---
Date of Service September 05, 2019 Assessment & Plan (1) Small bowel obstruction: 09/05/19 I reviewed the x-rayThat was done this morning and area graphically still has significant small bowel distention although clinically has not really represented completely therefore recommended that we keep the NG tube then and continue with IV fluids before we start a low diet 09/05/19 At this point I recommend taken out the NG tube and start him on a diet get rid of the IV analgesics and converted to something p.o. although he states the p.o. medicines that was given to him by Dr. Orellana did not work Likely keep him here today make sure that he is tolerating a diet and his pain is under control At this point I recommended to the patient and to Dr. Sepulveda that we inserted an NG tube try to decompress him continue with fluid resuscitation repeat a KUB in the morning and hopefully by that time we will have the image of the CAT scan downloaded At this time the patient does not have an acute abdomen and hopefully with the NG tube decompression and conservative management he will get through this Results & Data Vital Signs (Past 12 Hours) Vital Signs Temp Pulse Resp BP Pulse Ox 09/05/19 07:05 36.8 C 93 H 14 134/78 91 09/05/19 03:57 36.9 C 111 H 14 128/82 92 09/04/19 23:50 36.9 C 97 H 18 126/82 91 PG Care Time/CCT Total # of Minutes Spent Total Time Spent with Patient: Total time spent is greater than 50% in coordination of care (as documented) at patient's floor/unit and/or counseling patient: Coding Level of Care Code 12901 Subseq Hosp Care Lvl 2 Diagnoses Small bowel obstruction K56.609
[2019-09-05 10:07] LABS: Basophils # (auto) 0.01 K/uL (0-0.2); Basophils % (auto) 0.1 %; Eosinophils # (auto) 0.26 K/uL (0-0.5); Eosinophils % (auto) 3.2 %; Hematocrit (blood only) 41.8 % (42-52); Hemoglobin 13.8 g/dL (14.0-18.0); Immature Granulocytes # (auto) 0.04 K/uL (0.00-0.02); Immature Granulocytes % (auto) 0.5 %; Lymphocytes % (auto) 19.6 %; Mean Corpuscular Hemoglobin 29.6 pg (25-34); Mean Corpuscular Volume 89.7 fL (80-100); Mean Platelet Volume 9.9 fL (7.4-10.4); Monocytes # (auto) 0.73 K/uL (0.11-0.59); Monocytes % (auto) 8.9 %; Neutrophils # (auto) 5.53 K/uL (1.4-6.5); Neutrophils % (auto) 67.7 %; Platelet Count 265 K/uL (130-400); RDW Coefficient of Variation 13.6 % (11.5-14.5); Red Blood Count 4.66 M/uL (4.7-6.1); White Blood Count 8.17 K/uL (4.8-10.8)
[2019-09-05 10:35] LABS: Albumin Level 3.3 gm/dl (3.4-5.0); BUN Creatinine Ratio 21.3 (10-20); Calcium 8.9 mg/dl (8.5-10.1); Creatinine Clr Calc Pharmacy 153.5 ml/min; Est GFR (African American) 135.6
[2019-09-05 10:37] LABS: Bilirubin Direct 0.5 mg/dl (0-0.2); Bilirubin,Total 1.7 mg/dl (0.2-1); Phosphorus 2.8 mg/dl (2.5-4.9); Total Protein 7.7 gm/dl (6.4-8.2)
--- NOTE | 2019-09-05 12:41 | Hospitalist Progress Note ---
Date of Service September 05, 2019 Assessment & Plan (1) Small bowel obstruction: Isidro is a 34yo M with a PMHx of Crohn's disease with recent incisional hernia repair who is admitted for ileus/SBO. Small Bowel Obstruction - Surgery consulted. [place] area graphically still has significant small bowel distention and recommended keeping the NG tube for now and continue with IV fluids before we start a low diet - Abd distended, mild stomach discomfort - NGT with 250cc output at shift change, ~100cc/2 hours this morning - NPO, continue low intermittent suction. . Not yet clinically ready for diet advancement - IVFM as below - BMP daily - Pain control with hydromorphone 0.5mg IV PRN, minimize to prevent worsening of ileus - APAP 650mg PO Q4H PRN - Zofran 4mg Q6H PRN for nausea Crohn's - s/p colectomy - No acute change in management FEN/GI: LR 100cc/hr PPx: Lovenox 40 Code: Full Dispo: Med/Surg (2) Abdominal pain: (3) Anemia: Admission and Anticipated Discharge Date Admission Date: September 04, 2019 Anticipated date of discharge: 09/06/19 Supervising Physician Co-Signing Physician Notes I personally examined the patient and verified all patten points of history and exam, discussed case, and agree with decision making with Dr May. wants ice chips for throat feeling dry. otherwise pain under reasonable control vitals noted nad heent nc at mmm breathing unlabored no accessory muscles good effort. abd soft mild distention mild diffuse tenderness no rigidity. SBO/ileus - continue supportive care, NGT, pain control. otherwise as above Subjective Isidro is seen at the bedside. He continues to have abdominal discomfort and nausea. NGT output ~50-100cc since shift change, 250cc last shift dark output. Minimal flatus. No fevers, chills, sweats. No BM. No questions/concerns at time of visit. Review of Systems Review of Systems: Constitutional: Denies fever, chills, weight change Eyes: Denies vision change, eye pain ENT: Denies ear pain, sore throat, sinus pain Cardiovascular: Denies chest pain, chest pressure, palpitations Respiratory: Denies shortness of breath, cough, sputum production, difficulty breathing Gastrointestinal: Endorses abdominal discomfort. Denies BMs, melena, BRBPR. minimal flatus. Genitourinary: Denies pain with urination, urinary urgency Musculoskeletal: Denies acute weakness, muscle aches/pain, joint aches/pain Integumentary:Denies rash, lesions, bruising Neurological: Denies headache, numbness, tingling Physical Exam Physical Exam: General: A&Ox3. Cooperative. Feels fatigued. HEENT: Atraumatic, normocephalic. Pulm: CTAB A&P. -wheezes, -rales, -rhonchi. Symmetrical chest rise. No increase work of breathing. No respiratory distress. Cardiac: RRR, -mrg. Radial pulses intact and symmetrical. Abdominal: TTP in periumbilical and LLQ without rebound tenderness or rigidity. No guarding. Distended. Results & Data Results & Data ([facility]) Vital Signs (Past 12 Hours) Vital Signs Temp Pulse Resp BP Pulse Ox 09/05/19 07:05 36.8 C 93 H 14 134/78 91 09/05/19 03:57 36.9 C 111 H 14 128/82 92 09/04/19 23:50 36.9 C 97 H 18 126/82 91 Resident Activity Tracking Resident Involvement: Resident Care Provided Care Provided: Adult [facility] Medicine
--- NOTE | 2019-09-05 16:26 | Hospitalist Progress Note ---
Date of Service September 05, 2019 Assessment & Plan (1) Small bowel obstruction: 34yo C male with history of Crohns disease s/p colectomy, s/p open repair of incisional hernia POD #4 presenting with SBO. Patient presently afebrile, HD stable, in mild distress secondary to pain but non-toxic -Admission to medical floor -Place NGT to low intermittent suction -IVF and electrolyte repletion -NPO -Control of pain and nausea as needed -General Surgery assistance appreciated (2) Crohns disease: S/p colectomy with post-operative SBO -Management as above F/E/N - LR at 100mL/hr, monitor electrolytes and replete as needed, NPO for now Ppx - Lovenox Code - Full Dispo - Admit to medical floor Admission and Anticipated Discharge Date Admission Date: September 04, 2019 Results & Data Results & Data ([facility]) Vital Signs (Past 12 Hours) Vital Signs Temp Pulse Resp BP Pulse Ox 09/05/19 07:05 36.8 C 93 H 14 134/78 91 Laboratory Results Laboratory Results - last 24 hr 09/04/19 09/05/19 09/05/19 21:20 09:52 09:52 WBC 8.17 RBC 4.66 L Hgb 13.8 L Hct 41.8 L MCV 89.7 MCH 29.6 MCHC 33.0 RDW Std Deviation 44.0 RDW Coeff of Valerie 13.6 Plt Count 265 MPV 9.9 Immature Gran % (Auto) 0.5 Neut % (Auto) 67.7 Lymph % (Auto) 19.6 Slope % (Auto) 8.9 Eos % (Auto) 3.2 Baso % (Auto) 0.1 Neut # (Auto) 5.53 Lymph # (Auto) 1.60 Slope # (Auto) 0.73 H Eos # (Auto) 0.26 Baso # (Auto) 0.01 Immature Gran # (Auto) 0.04 H Sodium 138 140 Potassium 4.0 4.0 Chloride 106 107 Carbon Dioxide 25 30 Anion Gap 6.0 3.0 BUN 19 H 18 Creatinine 0.82 0.82 Est Cr Clr Drug Dosing 153.5 153.5 Est GFR ( Amer) 135.6 135.6 Est GFR (Non-Af Amer) 117.0 117.0 BUN/Creatinine Ratio 23.2 H 21.3 H Glucose 93 93 Calcium 9.2 8.9 Phosphorus 2.8 Magnesium 2.0 Total Bilirubin 1.7 H Direct Bilirubin 0.5 H AST 54 H ALT 143 H Alkaline Phosphatase 122 H Total Protein 7.7 Albumin 3.3 L Diagnostic Findings XR KUB/Abdomen 1 view CLINICAL HISTORY: Assess SBO COMPARISON STUDY: No previous studies for comparison. FINDINGS: Distended loops of small bowel extending to the right lower quadrant region. Postoperative changes are identified within the right lower quadrant. IMPRESSION: Ileus versus developing distal small bowel obstructive change. Nasogastric tube within the gastric fundus. Medications Administered Current Inpatient Medications Acetaminophen (Tylenol) 650 mg PO Q4H PRN PRN Reason: Pain or Fever Stop: 10/04/19 20:08 Diphenhydramine HCl (Benadryl) 25 mg IV Q4H PRN PRN Reason: Itching Stop: 10/04/19 19:44 Last Admin: 09/05/19 15:00 Dose: 25 mg Documented by: Heparin Sodium (Porcine) (Heparin Sod 100 Unit/Ml Flush) 5 ml FLUSH PRN PRN PRN Reason: Flush Stop: 10/04/19 21:34 Last Admin: 09/05/19 05:58 Dose: 5 ml Documented by: Hydromorphone HCl (Dilaudid) 0.5 mg IV Q2H PRN PRN Reason: Pain Stop: 09/18/19 19:44 Last Admin: 09/05/19 15:01 Dose: 0.5 mg Documented by: Ondansetron HCl (Zofran) 4 mg IV Q6H PRN PRN Reason: Nausea Stop: 10/04/19 19:44 Last Admin: 09/04/19 20:31 Dose: 4 mg Documented by: PG Care Time/CCT Total # of Minutes Spent Total Time Spent with Patient: Total time spent is greater than 50% in coordination of care (as documented) at patient's floor/unit and/or counseling patient: Coding Diagnoses Small bowel obstruction K56.609 Crohns disease K50.919 Gastrointestinal tract location: unspecified location Digestive disease complication type: unspecified complication (1) Crohns disease Gastrointestinal tract location: unspecified location Digestive disease complication type: unspecified complication Qualified Code(s): K50.919 - Crohn's disease, unspecified, with unspecified complications
--- NOTE | 2019-09-05 17:41 | Billing Data ---
Date of Service September 05, 2019 Coding Level of Care Code 71510 Subseq Hosp Care Lvl 2
[2019-09-06] MEDS: DiphenhydrAMINE HCL 50 MG/ML VIAL IV PRN ×6 (00:37→20:19)
[2019-09-06] MEDS: HEPARIN 100 UNIT/ML 5ML FLUSH FLUSH PRN ×2 (00:37→05:11)
[2019-09-06] MEDS: HYDROmorphone INJ 0.5 MG/0.5 ML SYR IV PRN ×8 (00:37→19:53)
[2019-09-06 06:11] LABS: Basophils # (auto) 0.02 K/uL (0-0.2); Basophils % (auto) 0.2 %; Eosinophils # (auto) 0.15 K/uL (0-0.5); Eosinophils % (auto) 1.8 %; Hematocrit (blood only) 41.2 % (42-52); Hemoglobin 13.8 g/dL (14.0-18.0); Immature Granulocytes # (auto) 0.04 K/uL (0.00-0.02); Immature Granulocytes % (auto) 0.5 %; Lymphocytes # (auto) 1.87 K/uL (1.2-3.4); Lymphocytes % (auto) 22.3 %; Mean Corpuscular Hemoglobin 30.1 pg (25-34); Mean Corpuscular Hgb Conc 33.5 g/dL (32-36); Mean Corpuscular Volume 89.8 fL (80-100); Mean Platelet Volume 10.3 fL (7.4-10.4); Monocytes # (auto) 0.73 K/uL (0.11-0.59); Monocytes % (auto) 8.7 %; Neutrophils # (auto) 5.56 K/uL (1.4-6.5); Neutrophils % (auto) 66.5 %; Platelet Count 294 K/uL (130-400); RDW Coefficient of Variation 13.2 % (11.5-14.5); RDW Standard Deviation 43.2 fL (36.4-46.3); Red Blood Count 4.59 M/uL (4.7-6.1); White Blood Count 8.37 K/uL (4.8-10.8)
[2019-09-06 06:47] LABS: BUN Creatinine Ratio 17.2 (10-20); Calcium 9.2 mg/dl (8.5-10.1); Creatinine Clr Calc Pharmacy 167.8 ml/min; Est GFR (African American) 140.7; Est GFR (Non-African American) 121.4; Potassium 3.7 mmol/L (3.5-5.1)
--- NOTE | 2019-09-06 07:13 | XRay Report ---
KUB HISTORY: follow up bowel obstruction COMPARISON: KUB 09/05/2019. FINDINGS: Multiple gas-filled dilated loops of small bowel are seen throughout the abdomen. These are similar compared to the prior study. These measure up to 6.5 cm in diameter. Skin etta along the right lower quadrant. Prior cholecystectomy. Nasogastric tube terminates in the stomach. This remains unchanged. No significant gas within the colon and rectum. No renal calculi. No ureteral calculi. N o pneumoperitoneum or pneumatosis. IMPRESSION: Multiple dilated loops of small bowel are again noted. Findings are concerning for a small bowel obst ruction versus postoperative ileus. ACT 112: Negative or not required by law. Electronically signed by: Scotty Rosa M.D. 09/06/2019 7:11 AM
[2019-09-06] MEDS: LACTATED RINGER'S 1,000 ML IV SCH ×3 (09:01→21:58)
--- NOTE | 2019-09-06 09:22 | Surgery Progress Note ---
Date of Service September 06, 2019 Assessment & Plan (1) Small bowel obstruction: 09/06/19 The patient appears to be doing better although the x-ray this morning still shows a significant small bowel distention to 6.5 cm his NG output is increased and he did have a dark liquid bowel movement at this point I would like to repeat a CT scan of the abdomen with IV and oral contrast since I was never able to find the actual CT scan that he had had an outside hospital the only thing we had was report This was discussed with the patient will proceed accordingly make sure that the patient is continues to have IV fluid his heart rate is slightly increased at 95 this morning 09/05/19 I reviewed the x-rayThat was done this morning and area graphically still has significant small bowel distention although clinically has not really represented completely therefore recommended that we keep the NG tube then and continue with IV fluids before we start a low diet 09/05/19 At this point I recommend taken out the NG tube and start him on a diet get rid of the IV analgesics and converted to something p.o. although he states the p.o. medicines that was given to him by Dr. Orellana did not work Likely keep him here today make sure that he is tolerating a diet and his pain is under control At this point I recommended to the patient and to Dr. Sepulveda that we inserted an NG tube try to decompress him continue with fluid resuscitation repeat a KUB in the morning and hopefully by that time we will have the image of the CAT scan downloaded At this time the patient does not have an acute abdomen and hopefully with the NG tube decompression and conservative management he will get through this Subjective States he feels little bit better he has had a bowel movements although it was kind of dark liquid Physical Exam Physical Exam: Appears more alert today appears more comfortable NG output increased approximately 1100 cc overnight The abdomen is a bit softer although he still has some discomfort guarding towards the right lower quadrant The incision looks well no drainage no cellulitis Results & Data Vital Signs (Past 12 Hours) Vital Signs Temp Pulse Resp BP Pulse Ox 09/05/19 23:22 37.1 C 95 H 14 146/77 H 92 PG Care Time/CCT Total # of Minutes Spent Total Time Spent with Patient: Total time spent is greater than 50% in coordination of care (as documented) at patient's floor/unit and/or counseling patient: Coding Level of Care Code 89506 Subseq Hosp Care Lvl 3 Diagnoses Small bowel obstruction K56.609
--- NOTE | 2019-09-06 09:52 | Hospitalist Progress Note ---
Date of Service September 06, 2019 Assessment & Plan (1) Small bowel obstruction: Isidro is a 34yo M with a PMHx of Crohn's disease with recent incisional hernia repair who is admitted for ileus/SBO. Small Bowel Obstruction - NG output increased, dark liquidy BM overnight. - Surgery consulted. Repeat CT-Ab w/ no transition point. Pt with small BM, but clinically feels unchanged. Continue LIMS via NG. Appreciate recs. - LR stopped after 2 bags, started at 150cc/hr - Abd distended, mild stomach discomfort - NPO, continue low intermittent suction. - BMP daily - Pain control with hydromorphone 0.5mg IV PRN, minimize to prevent worsening of ileus - APAP 650mg PO Q4H PRN - Zofran 4mg Q6H PRN for nausea Crohn's - s/p colectomy - No acute change in management FEN/GI: LR 100cc/hr PPx: Lovenox 40 Code: Full Dispo: Med/Surg Admission and Anticipated Discharge Date Admission Date: September 04, 2019 Anticipated date of discharge: 09/06/19 Supervising Physician Co-Signing Physician Notes I personally examined the patient and verified all patten points of history and exam, discussed case, and agree with decision making with Dr May. feeling about the same as yesterday for the most part - when i see him NGT is clamped for enteral contrast for CT --> he does note feeling a little worse in that respect. vitals noted nad heent nc at mmm breathing unlabored no accessory muscles good effort. good recent and remote recall. later CT noted ileus - continue supportive care, NGT, pain control, time renal lesion - outpt f/u. consider US while inpt vs after discharge. otherwise as above Subjective Patient is seen at bedside this morning. He is in no acute distress, laying napping in bed, and is easily awakened. Reports his night went the same as prior, and he feels overall the same. He had 1 liquidy dark/black bowel movement, small overnight. Minimal flatus. Continues to have abdominal distention and discomfort in the right lower and periumbilical quadrant. No fever, chills, sweats. No diaphoresis. No chest pain or shortness of breath. Reports he has no other questions or concerns, is aware that a repeat CT scan will be performed today. Review of Systems Review of Systems: Constitutional: Denies fever, chills, weight change Eyes: Denies vision change ENT: Denies sore throat, cold like symptoms Cardiovascular: Denies chest pain, chest pressure, palpitations Respiratory: Denies shortness of breath, cough, sputum production, difficulty breathing Gastrointestinal: Endorses abdominal discomfort. See HPI Genitourinary: Denies pain with urination, urinary urgency Musculoskeletal: Denies acute weakness, muscle aches/pain, joint aches/pain Integumentary:Denies rash, lesions, bruising Neurological: Denies headache, numbness, tingling Physical Exam Physical Exam: General: A&Ox3. Cooperative. Feels fatigued. HEENT: Atraumatic, normocephalic. Pulm: CTAB A&P. -wheezes, -rales, -rhonchi. Symmetrical chest rise. No increase work of breathing. No respiratory distress. Cardiac: RRR, -mrg. Radial pulses intact and symmetrical. Abdominal: TTP in periumbilical and RLQ without rebound tenderness or rigidity. No guarding. Distended. Results & Data Results & Data ([facility]) Vital Signs (Past 12 Hours) Vital Signs Temp Pulse Resp BP Pulse Ox 09/05/19 23:22 37.1 C 95 H 14 146/77 H 92 Resident Activity Tracking Resident Involvement: Resident Care Provided Care Provided: Adult Hospital Medicine
[2019-09-06] MEDS ORDERED: IOVERSOL 100ml IV PRN (10:50)
--- NOTE | 2019-09-06 14:01 | CT Scan Report ---
ABDOMEN AND PELVIS CT WITH IV AND ORAL CONTRAST CT DOSE: 811.28 mGy.cm HISTORY: s/p hernia repair, here with small bowel obstruction, please evaluate TECHNIQUE: Multiaxial CT images of the abdomen and pelvis were performed following the use of intrave nous and oral contrast. A dose lowering technique was utilized adhering to the principles of ALARA. COMPARISON STUDY: Abdomen and pelvis CT 04/24/2019. FINDINGS: Bibasilar linear densities favor subsegmental atelectasis. No pneumoperitoneum. No pneumato sis. No suspicious lytic or blastic osseous lesions. Cholecystectomy. Mild hepatic steatosis. The spl een, adrenal glands, pancreas, and left kidney are unremarkable. Slight increase in size in a 1.9 cm hypodense lesion within the upper pole the right kidney. This does not clearly represent a simple cys t. There is an additional stable 5 mm hypodense lesion within the upper pole the right kidney which i s technically too small to characterize. No hydronephrosis. No retroperitoneal lymphadenopathy. The m ain portal vein is patent. Normal caliber abdominal aorta. The bladder is decompressed. Postoperative changes suggestive of prior total colectomy with ileoanal anastomosis. There is also evidence for re cent right-sided ventral hernia repair. Peripheral enhancing gas and fluid collection at the previous identified hernia site which measures 6. 6 x 2.4 cm. Small amount of inflammatory change at this loc ation. There are skin etta superficial to this area. Therefore, this favors a postoperative seroma . A small abscess is considered less likely given the recent postoperative change but cannot be exclu ded. No evidence for bowel within the previous hernia site at this time. Multiple dilated contrast an d gas-filled loops of small bowel seen throughout the abdomen. However, contrast reaches the rectum. There is no definite transition point to suggest a high-grade obstruction. Therefore, findings favor a postoperative ileus versus partial small bowel obstruction. Stable 7 mm left perirectal lymph node. Nasogastric tube terminates in the proximal stomach. IMPRESSION: 1. Multiple dilated contrast and gas-filled loops of small bowel seen throughout the abdomen. However , contrast reaches the rectum. There is no definite transition point to suggest a high-grade obstruct ion. Therefore, findings favor a postoperative ileus versus partial small bowel obstruction. 2. The spleen, adrenal glands, pancreas, and left kidney are unremarkable. Slight increase in size in a 1.9 cm hypodense lesion within the upper pole the right kidney. This does not clearly represent a simple cyst. Follow-up nonemergent renal ultrasound recommended for further evaluation. 3. Recent right-sided ventral hernia repair. Peripheral enhancing gas and fluid collection at the pre vious identified hernia site which measures 6.6 x 2.4 cm. Small amount of inflammatory change at this location. There are skin etta superficial to this area. Therefore, this favors a postoperative se radha. A small abscess is considered less likely given the recent change but cannot be excluded. 4. Nasogastric tube terminates in the proximal stomach. 5. Additional findings as described above. ACT 112: Negative or not required by law. Electronically signed by: Scotty Rosa M.D. 09/06/2019 1:59 PM
--- NOTE | 2019-09-06 14:25 | Surgery Progress Note ---
Date of Service September 06, 2019 Assessment & Plan (1) Small bowel obstruction: Reviewed the CAT scan that was done this afternoon with contrast fairly contrast does redirect him but he has dilated small bowel no true evidence of transition zone or obstruction I reviewed the CAT scan with the patient and at this time we will continue conservative treatment with NG decompression he has moved his bowels his abdomen still but distended and is positive guarding. Present on Admission?: Yes PG Care Time/CCT Total # of Minutes Spent Total Time Spent with Patient: Total time spent is greater than 50% in coordination of care (as documented) at patient's floor/unit and/or counseling patient: Coding Level of Care Code 91537 Subseq Hosp Care Lvl 2 Diagnoses Small bowel obstruction K56.609
--- NOTE | 2019-09-06 16:42 | Billing Data ---
Date of Service September 06, 2019 Coding Level of Care Code 88617 Subseq Hosp Care Lvl 2
[2019-09-07] MEDS: HYDROmorphone INJ 0.5 MG/0.5 ML SYR IV PRN ×4 (00:09→12:36)
[2019-09-07] MEDS: DiphenhydrAMINE HCL 50 MG/ML VIAL IV PRN ×4 (00:22→12:35)
[2019-09-07] MEDS: LACTATED RINGER'S 1,000 ML IV SCH ×3 (04:26→22:06)
[2019-09-07 06:32] LABS: Basophils # (auto) 0.02 K/uL (0-0.2); Basophils % (auto) 0.2 %; Eosinophils % (auto) 1.8 %; Hematocrit (blood only) 41.1 % (42-52); Hemoglobin 13.8 g/dL (14.0-18.0); Immature Granulocytes # (auto) 0.08 K/uL (0.00-0.02); Immature Granulocytes % (auto) 0.7 %; Lymphocytes # (auto) 2.02 K/uL (1.2-3.4); Lymphocytes % (auto) 18.1 %; Mean Corpuscular Hemoglobin 29.6 pg (25-34); Mean Corpuscular Hgb Conc 33.6 g/dL (32-36); Mean Corpuscular Volume 88.2 fL (80-100); Mean Platelet Volume 9.6 fL (7.4-10.4); Neutrophils # (auto) 7.97 K/uL (1.4-6.5); Neutrophils % (auto) 71.2 %; Platelet Count 270 K/uL (130-400); RDW Coefficient of Variation 13.1 % (11.5-14.5); RDW Standard Deviation 42.1 fL (36.4-46.3); Red Blood Count 4.66 M/uL (4.7-6.1); White Blood Count 11.19 K/uL (4.8-10.8)
--- NOTE | 2019-09-07 07:06 | Hospitalist Progress Note ---
Date of Service September 07, 2019 Assessment & Plan (1) Small bowel obstruction: Isidro is a 34yo M with a PMHx of Crohn's disease and prior bowel resection with recent incisional hernia repair who is admitted for ileus/SBO. Postoperative ileus/SBO - abdomen distended, but with + BS - NG output increased over past 24 hours; low intermittent suction - CT-Ab from 09/05 w/ no transition point. Pt with small BM, but patient clinically feels unchanged. - continue IVF (Lactated Ringers at 150cc/hr) - NPO - protonix 40mg, IV BID - Pain control with Tylenol 1g, IV, Q8 and hydromorphone 0.5mg IV PRN. minimize opioid use to prevent worsening of ileus - Zofran 4mg Q6H PRN for nausea - BMP daily - Surgery consulted. Appreciate recs Crohn's Disease - s/p colectomy - not on an immunosuppressive therapy; has medical marijuana card - No acute change in management FEN/GI: NPO. LR 150cc/hr PPx: Lovenox 40 Code: Full Dispo: Med/Surg Admission and Anticipated Discharge Date Admission Date: September 04, 2019 Anticipated date of discharge: 09/06/19 Supervising Physician Co-Signing Physician Notes Resident Physician Supervision Note: I independently interviewed and examined the patient and verified the patten history and physical, reviewed labs and image studies, discussed the case with the resident Dr. Cook and agree with the findings and care plan. Subjective No acute events overnight. Patient reports feeling the same as yesterday. Asks to eat a popsicle Review of Systems Gastrointestinal: + abdominal pain and + bloating Physical Exam Constitutional: WD/WN, vitals as above Eyes: + anicteric sclerae ENMT: external ear and nose normal, oropharynx normal NG tube in place; draining bilious fluid Neck: normal visual inspection and trachea midline Respiratory: normal respiratory effort, lungs clear to auscultation Cardiovascular: RRR, no murmur, no edema Heart Sounds: normal S1 and normal S2 Extremities: no edema Gastrointestinal (Abdomen): Inspection/Auscultation: + abdomen distended, normal bowel sounds and + abdominal surgical incision (RLQ, site of recent hernia repair) Percussion/Palpation: + abdomen tender and abdomen soft; no guarding Skin: no rashes, warm and dry Psychiatric: A+Ox3, euthymic affect Results & Data Results & Data ([facility]) Vital Signs (Past 12 Hours) Vital Signs Temp Pulse Resp BP Pulse Ox 09/06/19 23:46 37.4 C 79 16 154/90 H 93 Resident Activity Tracking Resident Involvement: Resident Care Provided Care Provided: Adult Hospital Medicine
[2019-09-07 07:08] LABS: BUN Creatinine Ratio 17.2 (10-20); Calcium 9.2 mg/dl (8.5-10.1); Creatinine Clr Calc Pharmacy 187.8 ml/min; Est GFR (African American) 147.4; Est GFR (Non-African American) 127.1; Potassium 3.7 mmol/L (3.5-5.1)
--- NOTE | 2019-09-07 07:19 | Surgery Progress Note ---
Date of Service September 07, 2019 Assessment & Plan (1) Small bowel obstruction: At this point I do not see much improvement in overall although some parameters seems like it may be going in the right direction along to this being an ileus versus a bowel obstruction concerning that his white count is been elevated this morning for the first time he has not had any tachycardia that is significant he is well-hydrated I will obtain a KUB this morning and discussed the case with the [facility] group surgeon and will leave it up to them for further care of the patient Present on Admission?: Yes Subjective Patient states he feels about the same stays overnight has had a couple bowel movements that were dark normally they are greenish in nature The abdominal pain is about the same Physical Exam Physical Exam: He is alert coherent in no distress NG output approximately 400 cc overnight dark in nature nonbloody The abdomen is about the same as far as any generalized guarding to me it appears a little bit softer than it had been the incision right lower quadrant is healed well and no drainage etta are intact Results & Data Vital Signs (Past 12 Hours) Vital Signs Temp Pulse Resp BP Pulse Ox 09/06/19 23:46 37.4 C 79 16 154/90 H 93 the lab was noted white count is elevated this is the first time it is been elevated since he was admitted PG Care Time/CCT Total # of Minutes Spent Total Time Spent with Patient: Total time spent is greater than 50% in coordination of care (as documented) at patient's floor/unit and/or counseling patient: Coding Level of Care Code 10889 Subseq Hosp Care Lvl 3 Diagnoses Small bowel obstruction K56.609
--- NOTE | 2019-09-07 08:39 | XRay Report ---
XR KUB/Abdomen 1 view CLINICAL HISTORY: follow up bowel obstruction pain COMPARISON STUDY: 09/06/2019 FINDINGS: Interval removal of the nasogastric tube. Improved bowel pattern. Diminished small bowel di stention. Stable postoperative change right flank. The diameter of the previously discussed small bowel loop villareal ve a diameter of 6.5 cm is diminished to 4.1 cm. IMPRESSION: Improving postoperative ileus ACT 112: Negative or not required by law. The above report was generated using voice recognition software. It may contain grammatical, syntax or spelling errors. Electronically signed by: Chetan Galindo M.D. 09/07/2019 8:38 AM
[2019-09-07] MEDS ORDERED: METHYLNALTREXONE BROMIDE 12 MG/0.6 ML VIAL SQ ONE (10:49)
--- NOTE | 2019-09-07 10:51 | Gastrointestinal Consultation ---
Date of Consultation September 07, 2019 Assessment & Plan (1) Ileus: Pt is a 34 y/o male, w recent incisional hernia repair currently admitted for SBO vs post op ileus. 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 Last EGD/colonoscopy done 05/06/2019 w/o signs of pouchitis. Pt noted dark stools w rectal bleeding yesterday. NGT outpt >1L w dark brown fluid. H/H stable no rise in BUN. KUB this AM showed improved small bowel dis tension. - Monitor H/H closely - Keep NPO, NGT to LIS - IVF support - In light of rising WBC, seroma finding on CT scan, consider starting antibx - Trial Relistor 12mg subq today, limit/avoid narcotics - Start Protonix 40mg IV BID - Replete K for goal >4 to promote GI motility - Repeat KUB in AM - Surgery following Supervising Physician Co-Signing Physician Notes I have personally seen and examined the patient with JULIÁN Chua. Her note reflects my exam and findings. I agree with her impression and plans. Most c/w post op ileus state. Surgery following seroma collection and monitoring for infection. I do not think a colonoscopy would offer any insight into his care at this point. Edu Montgomery M.D. History of Present Illness Reason for Consultation: SBO, hx of Crohn's disease Requesting Physician: Dr. Lorena Orellana Attending Physician: Dr. Edu Montgomery History of Present Illness Pt is a 34 y/o male w hx of Ulcerative colitis s/p total colectomy for toxic megacolon , J pouch w ileostomy creation in 2014, reanastomosis 2017, who recently underwent incisional hernia repair by Dr. Orellana on 08/31/2019. 4 days post op he started to develop N/V, abd pain on RLQ upon eval found to have ileus vs SBO on initial KUB. CT abd/pelvis obtained yesterday should contrast reaching rectum but there's still multiple gas filled small bowel loop, no definite transition point. Thee's also a gas/fluid collection at hernia site measuring 6.6 x 2.4cm favoring post op seroma, though small abscess cannot be excluded. WBC is increasing today. Pt had been kept NPO, has NGT in place which is now draining dark brown fluid. NGT outpt >1L yesterday, KUB this AM showed decreased small bowel distension 6 -> 4cm. Pt reports he is passing dark liquid stools w some blood yesterday. Noted blood ct stable since admission Hgb around 13. BUN is normal. Last EGD/Colonoscopy by Dr. Curiel 05/06/2019: hypopharynx bleeding; no signs of pouchitis , some ileitis noted Allergies Allergy/AdvReac Type Severity Reaction Status Date / Time mushroom Allergy Severe ANAPHYLAXIS Verified 08/25/19 11:33 adhesive Allergy Intermediate Hives WITH Verified 08/25/19 11:33 ANY TAPE/BANDAIDS Home Medications Home Medications Medication Instructions Recorded Confirmed Type ondansetron HCl [Zofran] 4 mg PO Q6H PRN #20 tab 04/24/19 09/04/19 Rx Medical Marijuana INHALATION 08/25/19 History oxycodone-acetaminophen [Percocet] 1 tab PO Q6H PRN #30 tab 08/31/19 Rx oxycodone-acetaminophen [Percocet] 1 tab PO Q6H PRN #30 tab 08/31/19 09/04/19 Rx Patient History Medical History Anemia HX Anxiety Crohns disease (Chronic) follows with Dr. Patel Hx of chest pain ~04/2019-05/2019 -- pcp sent patient to [facility], diagnosed with anxiety per patient. full cardiac work up (echo,ekg,stress test) was negative. On total parenteral nutrition (TPN) (Chronic) hx Surgical History H/O total colectomy (Resolved) History of appendectomy (Resolved) History of cholecystectomy (Resolved) History of colonoscopy History of esophagogastroduodenoscopy (EGD) History of intestinal surgery (Resolved) J POUCH IN PLACE History of vascular access device (Resolved) PORT RIGHT CHEST IN PLACE Family History Other No family history of adverse response to anesthesia No pertinent family history Social History Preferred Language: Latvian Communication Ability: Effective Visual Impairment: No Limitations Hearing Ability: Normal Lining Ironer Required: No Beliefs That Will Affect Care: None Current Living Situation: Family Other Information That Helps Us Care for You: No Feels Safe at Home: Yes Safety Concerns: Feels Safe At This Time Smoking Status: Never smoker Second Hand Exposure: No ; Hx Alcohol Use: No Hx Substance Use: No Review of Systems Review of Systems: All systems reviewed & are unremarkable except as noted in HPI & below Physical Exam Constitutional: WD/WN, vitals as above + ill appearing, well groomed and cooperative Eyes: PERRL, conjunctivae normal, anicteric sclerae ENMT: external ear and nose normal, oropharynx normal Respiratory: normal respiratory effort, lungs clear to auscultation Cardiovascular: RRR, no murmur, no edema Gastrointestinal (Abdomen): Inspection/Auscultation: + abdomen distended (mild) and + hypoactive bowel sounds Percussion/Palpation: + abdomen tender (diffuse) Skin: no rashes, warm and dry no jaundice Psychiatric: A+Ox3, euthymic affect Lymphatic: no lymphedema Results & Data ([facility]) Vital Signs (Past 12 Hours) Vital Signs Temp Pulse Resp BP BP Pulse Ox 09/07/19 07:40 36.9 C 72 18 145/91 H 93 09/06/19 23:46 37.4 C 79 16 154/90 H 93
[2019-09-07] MEDS: PANTOprazole 40 MG in SYRINGE 0 ML IV SCH ×2 (12:35→22:08)
--- NOTE | 2019-09-07 12:40 | Surgery Progress Note ---
Date of Service pt is S/P open repair incisional hernia with mesh, POD 7, pt was doing fine, until 4 days ago, pt developed abdominal pain with nausea and vomiting, pt had CT scan diagnosis- SBO, and seroma on mesh, I reviewed pt's H/P, labs, CT scan with pt, pt is still have abdominal not passed gas or stool, pt denies fever. NG tube 600ml, September 07, 2019 Assessment & Plan (1) Small bowel obstruction: pt is a 34 year-old male who was admitted to hospital for SBO after open repair incisional hernia, pt is not getting better over 4 days, still have abdominal pain, not passed gas or stool, IMP: SBO, S/P open repair incisional hernia with mesh Plan, I recommend to do exploratory laparotomy possible bowel resection or stoma, D/W benefits, risks and alternatives of the surgery, the risks - infection, bleeding, injury bowel, sepsis, recurrence, pt understood, he agrees with [facility] surgery, I answered all questions, Supervising Physician Co-Signing Physician Notes I have personally seen and examined the patient with JULIÁN Chua. Her note reflects my exam and findings. I agree with her impression and plans. Most c/w post op ileus state. Surgery following seroma collection and monitoring for infection. I do not think a colonoscopy would offer any insight into his care at this point. Edu Montgomery M.D. Subjective No acute events overnight. Patient reports feeling the same as yesterday. Asks to eat a popsicle Physical Exam Constitutional: WD/WN, vitals as above well developed and well nourished Eyes: PERRL, conjunctivae normal, anicteric sclerae ENMT: external ear and nose normal, oropharynx normal Neck: trachea midline, no thyromegaly Respiratory: normal respiratory effort, lungs clear to auscultation Cardiovascular: RRR, no murmur, no edema Rate/Rhythm: regular rate and regular rhythm Heart Sounds: normal S1 and normal S2 Gastrointestinal (Abdomen): Percussion/Palpation: + abdomen tender mild distend, tenderness at right side abdomen, no rebound pain, the incision heal well, no redness, no drainage, Musculoskeletal: no cyanosis or clubbing, extremities motor strength 5/5 Skin: no rashes, warm and dry Neurologic: patellar DTR's 2+ bilat, sensation intact Psychiatric: Orientation: alert and oriented x 3 Results & Data Vital Signs (Past 12 Hours) Vital Signs Temp Pulse Resp BP Pulse Ox 09/07/19 07:40 36.9 C 72 18 145/91 H 93 Laboratory Results Abnormal lab results 09/07/19 Range/Units 06:24 WBC 11.19 H (4.8-10.8) K/uL RBC 4.66 L (4.7-6.1) M/uL Hgb 13.8 L (14.0-18.0) g/dL Hct 41.1 L (42-52) % Neut # (Auto) 7.97 H (1.4-6.5) K/uL [place] # (Auto) 0.90 H (0.11-0.59) K/uL Immature Gran # (Auto) 0.08 H (0.00-0.02) K/uL Diagnostic Findings XR KUB/Abdomen 1 view CLINICAL HISTORY: follow up bowel obstruction pain COMPARISON STUDY: 09/06/2019 FINDINGS: Interval removal of the nasogastric tube. Improved bowel pattern. Diminished small bowel distention. Stable postoperative change right flank. The diameter of the previously discussed small bowel loop have a diameter of 6.5 cm is diminished to 4.1 cm. IMPRESSION: Improving postoperative ileus ABDOMEN AND PELVIS CT WITH IV AND ORAL CONTRAST CT DOSE: 811.28 mGy.cm HISTORY: s/p hernia repair, here with small bowel obstruction, please evaluate TECHNIQUE: Multiaxial CT images of the abdomen and pelvis were performed following the use of intravenous and oral contrast. A dose lowering technique was utilized adhering to the principles of ALARA. COMPARISON STUDY: Abdomen and pelvis CT 04/24/2019. FINDINGS: Bibasilar linear densities favor subsegmental atelectasis. No pneumoperitoneum. No pneumatosis. No suspicious lytic or blastic osseous lesions. Cholecystectomy. Mild hepatic steatosis. The spleen, adrenal glands, pancreas, and left kidney are unremarkable. Slight increase in size in a 1.9 cm hypodense lesion within the upper pole the right kidney. This does not clearly represent a simple cyst. There is an additional stable 5 mm hypodense lesion within the upper pole the right kidney which is technically too small to characterize. No hydronephrosis. No retroperitoneal lymphadenopathy. The main portal vein is patent. Normal caliber abdominal aorta. The bladder is dec ompressed. Postoperative changes suggestive of prior total colectomy with ileoanal anastomosis. There is also evidence for recent right-sided ventral hernia repair. Peripheral enhancing gas and fluid collection at the previous identified hernia site which measures 6. 6 x 2.4 cm. Small amount of inflammatory change at this location. There are skin etta superficial to this area. Therefore, this favors a postoperative seroma. A small abscess is considered less likely given the recent postoperative change but cannot be excluded. No evidence for bowel within the previous hernia site at this time. Multiple dilated contrast and gas-filled loops of small bowel seen throughout the abdomen. However, contrast reaches the rectum. There is no definite transition point to suggest a high-grade obstruction. Therefore, findings favor a postoperative ileus versus partial small bowel obstruction. Stable 7 mm left perirectal lymph node. Nasogastric tube terminates in the proximal stomach. IMPRESSION: 1. Multiple dilated contrast and gas-filled loops of small bowel seen throughout the abdomen. However, contrast reaches the rectum. There is no definite transition point to suggest a high-grade obstruction. Therefore, findings favor a postoperative ileus versus partial small bowel obstruction. 2. The spleen, adrenal glands, pancreas, and left kidney are unremarkable. Slight increase in size in a 1.9 cm hypodense lesion within the upper pole the right kidney. This does not clearly represent a simple cyst. Follow-up nonemergent renal ultrasound recommended for further evaluation. 3. Recent right-sided ventral hernia repair. Peripheral enhancing gas and fluid collection at the previous identified hernia site which measures 6.6 x 2.4 cm. Small amount of inflammatory change at this location. There are skin etta superficial to this area. Therefore, this favors a postoperative seroma. A small abscess is considered less likely given the recent change but cannot be excluded. 4. Nasogastric tube terminates in the proximal stomach. 5. Additional findings as described above.
[2019-09-07] MEDS: POTASSIUM CHLORIDE / WTR 10 MEQ/100 ML PLCT IV SCH ×4 (14:00→23:00)
[2019-09-07] MEDS ORDERED: BACITRACIN OINT 15 GM TUBE ONE (16:06)
[2019-09-07] MEDS ORDERED: BUPIVACAINE 0.5 % 5 MG/1 ML MPF 30ML VIAL ONE (16:06)
[2019-09-07] MEDS ORDERED: LIDOCAINE HCL 1% 20 ML VIAL ONE (16:06)
--- NOTE | 2019-09-07 16:08 | Anesthesiology Consultation ---
Date of Service September 07, 2019 Assessment & Plan Chart Review Chart Review: Acceptable Risk for Surgery and Patient NOT seen in Pre Admission Testing Consults Requested none ASA ASA3 Proposed Anesthesia Anesthesia Type: General History Surgery Operation Date: 09/07/19 13:40 Proposed Procedures p Exploratory Laparotomy, Possible Bowel Resection - Lorena Orellana MD Height/Weight Height: 5 ft 9 in Weight: 103.7 kg Allergies Allergy/AdvReac Type Severity Reaction Status Date / Time mushroom Allergy Severe ANAPHYLAXIS Verified 08/25/19 11:33 adhesive Allergy Intermediate Hives WITH Verified 08/25/19 11:33 ANY TAPE/BANDAIDS Medications Home Medications Medication Instructions Recorded Confirmed Last Taken ondansetron HCl [Zofran] 4 mg PO Q6H PRN #20 tab 04/24/19 09/04/19 Unknown Medical Marijuana INHALATION 08/25/19 Unknown oxycodone-acetaminophen [Percocet] 1 tab PO Q6H PRN #30 tab 08/31/19 Unknown oxycodone-acetaminophen [Percocet] 1 tab PO Q6H PRN #30 tab 08/31/19 09/04/19 Unknown Active Medications Generic Name Dose Route Start Last Admin Trade Name Freq PRN Reason Stop Dose Admin Diphenhydramine HCl 25 mg 09/04/19 19:45 09/07/19 12:35 Benadryl IV 10/04/19 19:44 25 mg Q4H PRN Administration Itching Heparin Sodium (Porcine) 5 ml 09/04/19 21:35 09/06/19 05:11 Heparin Sod 100 Unit/Ml Flush FLUSH 10/04/19 21:34 5 ml PRN PRN Administration Flush Lactated Ringer's 1,000 mls @ 150 mls/hr 09/06/19 09:00 09/07/19 11:14 Lr IV 10/06/19 08:59 150 mls/hr .Q6H40M CIRA Administration Pantoprazole Sodium 40 mg/ 10 mls @ 5 mls/min 09/07/19 11:00 09/07/19 12:35 Syringe IV 10/07/19 10:59 5 mls/min BID CIRA Administration Ioversol 93 ml 09/06/19 10:50 09/06/19 10:51 Optiray 320 100ml IV 09/10/19 10:49 93 ml ONCE PRN Administration Interaction Checking Ondansetron HCl 4 mg 09/04/19 19:45 09/04/19 20:31 Zofran IV 10/04/19 19:44 4 mg Q6H PRN Administration Nausea Past Medical History Medical History Anemia HX Anxiety Crohns disease (Chronic) follows with Dr. Patel Hx of chest pain ~04/2019-05/2019 -- pcp sent patient to [facility], diagnosed with anxiety per patient. full cardiac work up (echo,ekg,stress test) was negative. On total parenteral nutrition (TPN) (Chronic) hx Exercise / Class Metabolic Activity II 4-5 Yardwork/Stairs/Walk up hill Past Family History Family History Other No family history of adverse response to anesthesia No pertinent family history Past Surgical History Surgical History H/O total colectomy (Resolved) History of appendectomy (Resolved) History of cholecystectomy (Resolved) History of colonoscopy History of esophagogastroduodenoscopy (EGD) History of intestinal surgery (Resolved) J POUCH IN PLACE History of vascular access device (Resolved) PORT RIGHT CHEST IN PLACE Past Anesthesia History No Hx of Anesthesia Complications and No Family Hx of Anesthesia Complications History of PONV No Hx of PONV and No Hx of Motion Sickness Social History Smoking Status: Never smoker Hx Alcohol Use: No Hx Substance Use: No substance use type: does not use Last Used Substance: Days (ago) Physical Exam Vital Signs Last Vital Signs Temp 36.7 C 09/07/19 15:50 Pulse 72 09/07/19 15:50 Resp 16 09/07/19 15:50 BP 131/83 09/07/19 15:50 Pulse Ox 94 09/07/19 15:50 Testing Laboratory Results 09/07/19 06:24 09/07/19 06:24
[2019-09-07] MEDS ORDERED: CEFAZOLIN 2000MG 2,000 MG/15 ML SYR IV ONE (16:37)
--- NOTE | 2019-09-07 16:37 | History & Physical Bridge Note ---
Date of Service September 07, 2019 History & Physical Bridge Note I have examined the patient, reviewed the History & Physical and in the interval since the performance of the History & Physical I have noted the following changes of clinical significance: no changes noted Supervising Physician Co-Signing Physician Notes I have personally seen and examined the patient with JULIÁN Chua. Her note reflects my exam and findings. I agree with her impression and plans. Most c/w post op ileus state. Surgery following seroma collection and monitoring for infection. I do not think a colonoscopy would offer any insight into his care at this point. Edu Montgomery M.D.
[2019-09-07] MEDS ORDERED: DEXAMETHASONE SOD INJ 4 MG/ML VIAL ONE (17:19)
[2019-09-07] MEDS ORDERED: LIDOCAINE HCL 2% 2 ML VIAL/AMP(20MG/ML) INFIL ONE (17:19)
[2019-09-07] MEDS ORDERED: PROPOFOL IV EMULSION 10 MG/ML 20 ML VIAL IV ONE (17:19)
[2019-09-07] MEDS ORDERED: MIDAZOLAM HCL 1 MG/ML 2ML VIAL ONE (17:19)
[2019-09-07] MEDS ORDERED: ONDANSETRON INJ 2 MG/ML 2 ML VIAL ONE (17:19)
[2019-09-07] MEDS ORDERED: ROCURONIUM BROMIDE 10 MG/ML 5 ML VIAL IV ONE ×7 (17:19→18:35)
[2019-09-07] MEDS ORDERED: fentaNYL citrate 100 MCG/2 ML VIAL ONE (17:19)
[2019-09-07] MEDS ORDERED: HYDROmorphone INJ 2 MG/ML SYR/VIAL ONE (17:46)
[2019-09-07] MEDS ORDERED: DiphenhydrAMINE HCL 50 MG/ML VIAL ONE (17:54)
[2019-09-07] MEDS ORDERED: ACETAMINOPHEN 1000 MG/100 ML IV IV ONE (18:23)
[2019-09-07] MEDS ORDERED: GLYCOPYRROLATE 0.2 MG/ML VIAL ONE (19:37)
[2019-09-07] MEDS ORDERED: NEOSTIGMINE METHYLSULFATE 5 MG/5 ML SYR ONE (19:38)
--- NOTE | 2019-09-07 19:44 | Post Operative Brief Note ---
Immediate Post Op Note v1 Date of Surgery September 07, 2019 Pre & Post Diagnosis Operation Date: 09/07/19 13:40 Pre-Op Diagnosis: Small Bowel Obstruction Post-Op Diagnosis: Adhesions causing Small Bowel Obstruction I identified the patient and participated in the time-out.: Yes Procedure Operation Date: 09/07/19 13:40 Actual Procedures p Exploratory Laparotomy, Lysis of Adhesions(Not Applicable) - Lorena Orellana MD Surgeon Lorena Orellana MD [employer] surgical assistant certified Estimated Blood Loss 30 Findings Consistent with Post-Op Diagnosis adhesion causing small bowel obstruction Fluids 1200ml Specimens none Drains Lozano Catheter (Inserted a 1801 by Albina Betancourt [employer]PER[employer], 16fr 10cc balloon, no difficulty.) Anesthesia Type General Complications none Disposition Accompanied Patient To Recovery: Yes Disposition: Recovery Room Overlapping Procedure I was immediately available: during the entire case.
[2019-09-07] MEDS ORDERED: MoRPHine SULFATE 10 MG/ML CARP/VIAL IV PRN (20:34)
[2019-09-07] MEDS ORDERED: ATROPINE SULFATE 0.1 MG/ML 10ML SYR IV PRN (20:34)
[2019-09-07] MEDS ORDERED: NALOXONE HCL 0.4 MG/1 ML VIAL/CARP IV PRN (20:34)
[2019-09-07] MEDS ORDERED: KETOROLAC 30 MG/ML VIAL IV PRN (20:34)
[2019-09-07] MEDS ORDERED: FLUMAZENIL 0.1 MG/1 ML 10 ML VIAL IV PRN (20:34)
[2019-09-07] MEDS ORDERED: PROMETHAZINE HCL 12.5 MG in SODIUM CHLORIDE 0.9% 50 ML IV PRN (20:34)
[2019-09-07] MEDS ORDERED: ONDANSETRON INJ 2 MG/ML 2 ML VIAL IV PRN (20:34)
[2019-09-07] MEDS ORDERED: ePHEDrine sulfate 50 MG/ML AMP IV PRN (20:34)
[2019-09-07] MEDS ORDERED: LABETALOL HCL IV 5 MG/ML 20ML IV PRN (20:34)
[2019-09-07] MEDS ORDERED: HYDROmorphone INJ 1 MG/ML SYRINGE ONE (20:35)
[2019-09-07] MEDS ORDERED: KETOROLAC 30 MG/ML VIAL ONE (20:38)
[2019-09-07] MEDS: HYDROmorphone INJ 1 MG/ML SYRINGE IV PRN ×8 (20:38→21:13)
[2019-09-07] MEDS ORDERED: DiphenhydrAMINE HCL 50 MG/ML VIAL IV STA (21:23)
--- NOTE | 2019-09-07 21:42 | Anesthesiology Progress Note ---
Date of Service September 07, 2019 Anesthesia Post Procedure Vital Signs Vital Signs: Temp Pulse Pulse Resp BP BP Pulse Ox 09/07/19 21:35 36.8 C 86 17 152/78 H 94 09/07/19 21:25 69 17 159/77 H 93 09/07/19 21:15 67 12 142/80 H 92 09/07/19 21:05 87 24 159/86 H 93 09/07/19 20:55 75 18 163/75 H 93 09/07/19 20:45 100 H 22 165/94 H 91 09/07/19 20:35 36.8 C 107 H 17 185/119 H 99 09/07/19 16:42 37.0 C 90 19 157/88 H 95 09/07/19 15:50 36.7 C 72 16 131/83 94 09/07/19 07:40 36.9 C 72 18 145/91 H 93 09/06/19 23:46 37.4 C 79 16 154/90 H 93 Pain Intensity Right Lower Abdomen: Pain Intensity: 8 Abdomen: Pain Intensity: 5 Transfer of Care Handoff Completed per policy Notes Mental Status: alert / awake / arousable Patient Amnestic to Procedure: Yes Nausea / Vomiting: adequately controlled Pain: adequately controlled Airway Patency, RR, SpO2: stable & adequate BP & HR: stable & adequate Hydration State: stable & adequate Anesthetic Complications: no major complications apparent
[2019-09-07] MEDS ORDERED: ONDANSETRON 4 MG OD TAB PO PRN (21:54)
[2019-09-07] MEDS ORDERED: OXYCODONE/ACETAMINOPHEN 5mg/325mg TAB PO PRN (21:54)
[2019-09-08] MEDS: D5W AND 1/2NSS + 20MEQ KCL 20 MEQ/1,000 ML BAG IV SCH ×3 (00:12→18:17)
[2019-09-08] MEDS: HYDROmorphone INJ 1 MG/ML SYRINGE IV PRN ×5 (01:10→20:02)
[2019-09-08] MEDS: CEFAZOLIN 1000MG 1,000 MG/7.5 ML SYR IV SCH ×3 (01:10→18:17)
[2019-09-08] MEDS: DiphenhydrAMINE HCL 50 MG/ML VIAL IV PRN ×5 (01:10→20:02)
--- NOTE | 2019-09-08 02:20 | Operative Report (OR) ---
DATE OF OPERATION: 09/07/2019 PREOPERATIVE DIAGNOSIS: Small-bowel obstruction post stat ventral hernia. POSTOPERATIVE DIAGNOSIS: Small-bowel obstruction post stat ventral hernia. OPERATION: Exploratory laparotomy and lysis of adhesion. SURGEON: Lorena Orellana MD ANESTHESIA: General. ESTIMATED BLOOD LOSS: About 30 mL. INTRAVENOUS FLUIDS: 1200 mL. FINDINGS: Adhesion caused the small-bowel obstruction, old scar, some seroma around the mesh. COMPLICATIONS: None. INDICATIONS FOR THE PROCEDURE: This is a 34-year-old gentleman who had ventral incisional hernia repair about 1 week ago and 4 days ago the patient started having abdominal pain, nausea, and vomiting. The patient had a CT scan diagnosis of small-bowel obstruction. We did conservative treatment over 4 days and the patient still has a lot of abdominal pain and repeated a CT scan and it did not get better. I recommended to take him to the OR to do exploratory laparotomy, possible bowel resection, stoma. I did talk to the patient about the benefits, the risks, and alternate procedures. I indicated the risks may include but not limited such as bleeding, infection, sepsis, injury to the bowel, hernia recurrence, even , the patient understands. He signed informed consent and I answered all questions. DETAILS OF PROCEDURE: We brought in the patient to the OR, put the patient in the supine position. The patient received SCDs on bilateral legs to prevent DVT. Also the patient received 2 grams Ancef IV for prophylactic antibiotic. The patient received general anesthesia without difficulty. Also, the patient received Lozano catheter insertion. The abdomen was prepped and draped in routine sterile fashion. After timeout, we removed the staple and then we used the old incision to reach the mesh layer and then we found the patient had about 1 cm x 6 cm seroma and it did not look like infection. At this moment, we just removed the seroma on the mesh. The mesh seated nicely and no hernia recurrence. At this moment, we decided to make a midline incision and opened the fascia and got into the abdomen without difficulty. Again, we saw a significantly dilated small-bowel obstruction. The small bowel diameter of about 6 cm confirmed diagnosis of small-bowel obstruction. Then we found the patient had old scar located in the right lower quadrant area, caused the small-bowel obstruction and we took down the old scar and the small-bowel obstruction was released and then we found the proximal small bowel, reached the distal small bowel, and the small bowel connected to the large bowel. Hemostasis was obtained. Then I closed the fascial layer by using #1 PDS continuous running and closed subcutaneous layer by using 2-0 Vicryl continuous running, closed skin by using staple. Then we put the dressing on. The patient tolerated the procedure well. All the instrument, needle, and sponge count were correct x2 at the end of the case. The patient transferred to recovery room in stable condition. I attest to the content of the Intraoperative Record and any orders documented therein. Any exceptions are noted below. MTDD
[2019-09-08 06:33] LABS: Basophils # (auto) 0.01 K/uL (0-0.2); Basophils % (auto) 0.1 %; Hematocrit (blood only) 40.9 % (42-52); Hemoglobin 13.4 g/dL (14.0-18.0); Immature Granulocytes # (auto) 0.05 K/uL (0.00-0.02); Immature Granulocytes % (auto) 0.4 %; Lymphocytes # (auto) 0.95 K/uL (1.2-3.4); Lymphocytes % (auto) 7.6 %; Mean Corpuscular Hemoglobin 29.3 pg (25-34); Mean Corpuscular Hgb Conc 32.8 g/dL (32-36); Mean Corpuscular Volume 89.3 fL (80-100); Mean Platelet Volume 9.7 fL (7.4-10.4); Monocytes # (auto) 0.53 K/uL (0.11-0.59); Monocytes % (auto) 4.2 %; Neutrophils # (auto) 10.99 K/uL (1.4-6.5); Neutrophils % (auto) 87.7 %; Platelet Count 307 K/uL (130-400); RDW Standard Deviation 42.3 fL (36.4-46.3); Red Blood Count 4.58 M/uL (4.7-6.1); White Blood Count 12.53 K/uL (4.8-10.8)
[2019-09-08 07:24] LABS: BUN Creatinine Ratio 19.3 (10-20); Blood Urea Nitrogen 12 mg/dl (7-18); Carbon Dioxide 27 mmol/L (21-32); Chloride 105 mmol/L (98-107); Est GFR (African American) > 150.0; Est GFR (Non-African American) 131.3; Glucose 153 mg/dl (70-99); Potassium 4.5 mmol/L (3.5-5.1); Sodium 136 mmol/L (136-145)
--- NOTE | 2019-09-08 07:26 | Surgery Progress Note ---
Date of Service F/U S /P exploratory laparotomy, lysis of adhesion, POD 1 pt is doing fine, good control incision pain, not passed gas or BM, NG 200ml September 08, 2019 Assessment & Plan (1) Small bowel obstruction: pt is a 34 year-old male who was admitted to hospital for SBO after open repair incisional hernia, pt is not getting better over 4 days, still have abdominal pain, not passed gas or stool, IMP: SBO, S/P open repair incisional hernia with mesh Plan, I recommend to do exploratory laparotomy possible bowel resection or stoma, D/W benefits, risks and alternatives of the surgery, the risks - infection, bleeding, injury bowel, sepsis, recurrence, pt understood, he agrees with the surgery, I answered all questions, 09/08/2019 7:23AM POD 1 doing fine, continue treatment, wait bowel function recovery, I update about OR finding and the procedure pt had, pt understood, I answered all questions, will F/U Supervising Physician Co-Signing Physician Notes I have personally seen and examined the patient with JULIÁN Chua. Her note reflects my exam and findings. I agree with her impression and plans. Most c/w post op ileus state. Surgery following seroma collection and monitoring for infection. I do not think a colonoscopy would offer any insight into his care at this point. Edu Montgomery M.D. Subjective No acute events overnight. Patient reports feeling the same as yesterday. Asks to eat a popsicle Physical Exam Constitutional: WD/WN, vitals as above well developed and well nourished Eyes: PERRL, conjunctivae normal, anicteric sclerae ENMT: external ear and nose normal, oropharynx normal Neck: trachea midline, no thyromegaly Respiratory: normal respiratory effort, lungs clear to auscultation Cardiovascular: RRR, no murmur, no edema Rate/Rhythm: regular rate and regular rhythm Heart Sounds: normal S1 and normal S2 Gastrointestinal (Abdomen): Percussion/Palpation: + abdomen tender and abdomen soft no distend, BS +, incision intact, no redness Musculoskeletal: no cyanosis or clubbing, extremities motor strength 5/5 Skin: no rashes, warm and dry Neurologic: patellar DTR's 2+ bilat, sensation intact Psychiatric: Orientation: alert and oriented x 3 Results & Data Vital Signs (Past 12 Hours) Vital Signs Temp Pulse Pulse Resp BP BP Pulse Ox 09/08/19 07:15 36.5 C 62 16 125/75 95 09/08/19 03:07 36.4 C L 61 16 121/77 98 09/08/19 00:45 36.5 C 69 16 113/75 97 09/07/19 23:45 36.6 C 77 16 119/72 96 09/07/19 22:51 36.6 C 81 19 123/79 96 09/07/19 22:15 36.5 C 84 16 126/76 94 09/07/19 21:45 36.3 C L 88 18 147/80 H 94 09/07/19 21:35 36.8 C 86 17 152/78 H 94 09/07/19 21:25 69 17 159/77 H 93 09/07/19 21:15 67 12 142/80 H 92 09/07/19 21:05 87 24 159/86 H 93 09/07/19 20:55 75 18 163/75 H 93 09/07/19 20:45 100 H 22 165/94 H 91 09/07/19 20:35 36.8 C 107 H 17 185/119 H 99 Laboratory Results Abnormal lab results 09/08/19 Range/Units 06:13 WBC 12.53 H (4.8-10.8) K/uL RBC 4.58 L (4.7-6.1) M/uL Hgb 13.4 L (14.0-18.0) g/dL Hct 40.9 L (42-52) % Neut # (Auto) 10.99 H (1.4-6.5) K/uL Lymph # (Auto) 0.95 L (1.2-3.4) K/uL Immature Gran # (Auto) 0.05 H (0.00-0.02) K/uL
--- NOTE | 2019-09-08 08:31 | Anesthesiology Progress Note ---
Date of Service September 08, 2019 Anesthesia Post Procedure Vital Signs Vital Signs: Temp Pulse Pulse Pulse Resp BP BP 09/08/19 07:15 36.5 C 62 16 125/75 09/08/19 03:07 36.4 C L 61 16 121/77 09/08/19 00:45 36.5 C 69 16 113/75 09/07/19 23:45 36.6 C 77 16 119/72 09/07/19 22:51 36.6 C 81 19 123/79 09/07/19 22:15 36.5 C 84 16 126/76 09/07/19 21:45 36.3 C L 88 18 147/80 H 09/07/19 21:35 36.8 C 86 17 152/78 H 09/07/19 21:25 69 17 159/77 H 09/07/19 21:15 67 12 142/80 H 09/07/19 21:05 87 24 159/86 H 09/07/19 20:55 75 18 163/75 H 09/07/19 20:45 100 H 22 165/94 H 09/07/19 20:35 36.8 C 107 H 17 185/119 H 09/07/19 16:42 37.0 C 90 19 157/88 H 09/07/19 15:50 36.7 C 72 16 131/83 Pulse Ox 09/08/19 07:15 95 09/08/19 03:07 98 09/08/19 00:45 97 09/07/19 23:45 96 09/07/19 22:51 96 09/07/19 22:15 94 09/07/19 21:45 94 09/07/19 21:35 94 09/07/19 21:25 93 09/07/19 21:15 92 09/07/19 21:05 93 09/07/19 20:55 93 09/07/19 20:45 91 09/07/19 20:35 99 09/07/19 16:42 95 09/07/19 15:50 94 Pain Intensity Right Lower Abdomen: Pain Intensity: 8 Abdomen: Pain Intensity: 5 Notes Mental Status: alert / awake / arousable and participated in evaluation Patient Amnestic to Procedure: Yes Nausea / Vomiting: adequately controlled Pain: adequately controlled Airway Patency, RR, SpO2: stable & adequate BP & HR: stable & adequate Hydration State: stable & adequate Anesthetic Complications: no major complications apparent and Pt Satisfied with anesthetic care
[2019-09-08] MEDS: PANTOprazole 40 MG in SYRINGE 0 ML IV SCH ×2 (08:47→20:02)
--- NOTE | 2019-09-08 10:49 | Hospitalist Progress Note ---
Date of Service September 08, 2019 Assessment & Plan (1) Small bowel obstruction: Isidro is a 34yo M with a PMHx of Crohn's disease and prior bowel resection with anastomosis and a recent incisional hernia repair who was admitted for ileus/SBO. General Surgery performed exploratory laparotomy on 09/07/19 with lysis of adhesions and relief of mechanical obstruction. Small Bowel Obstruction - POD 1 of ex-lap with lysis of adhesions and manual removal of obstruction - abdomen still distended, but with + BS; patient appears more comfortable on exam - NG tube replaced, draining brown fluid; continue low intermittent suction - NPO; continue IVF (Lactated Ringers at 150cc/hr) - protonix 40mg, IV BID - Pain control with Tylenol 1g, IV, Q8 and hydromorphone 0.5mg IV PRN. minimize opioid use to prevent worsening of ileus - potassium at 4.5 today - Zofran 4mg Q6H PRN for nausea - BMP daily - Surgery consulted. Appreciate recs Crohn's Disease - s/p colectomy - not on an immunosuppressive therapy; has medical marijuana card - No acute change in management FEN/GI: NPO. LR 150cc/hr PPx: Lovenox 40 Code: Full Dispo: Med/Surg Admission and Anticipated Discharge Date Admission Date: September 04, 2019 Anticipated date of discharge: 09/06/19 Supervising Physician Co-Signing Physician Notes Resident Physician Supervision Note: I independently interviewed and examined the patient and verified the patten history and physical, reviewed labs and image studies, discussed the case with the resident Dr. Cook and agree with the findings and care plan. Subjective Patient reports feeling similar to yesterday prior to his operation. Seems more comfortable and conversant. Review of Systems Gastrointestinal: + abdominal pain and + bloating Physical Exam Constitutional: WD/WN, vitals as above Eyes: + anicteric sclerae ENMT: external ear and nose normal, oropharynx normal NG tube in place Neck: normal visual inspection and trachea midline Respiratory: normal respiratory effort, lungs clear to auscultation Cardiovascular: RRR, no murmur, no edema Heart Sounds: normal S1 and normal S2 Extremities: no edema Gastrointestinal (Abdomen): Inspection/Auscultation: + abdomen distended, normal bowel sounds and + abdominal surgical incision (RLQ, site of recent hernia repair) Percussion/Palpation: + abdomen tender and abdomen soft; no guarding Skin: no rashes, warm and dry Psychiatric: A+Ox3, euthymic affect Results & Data Results & Data ([facility]) Vital Signs (Past 12 Hours) Vital Signs Temp Pulse Resp BP BP Pulse Ox 09/08/19 07:15 36.5 C 62 16 125/75 95 09/08/19 03:07 36.4 C L 61 16 121/77 98 09/08/19 00:45 36.5 C 69 16 113/75 97 09/07/19 23:45 36.6 C 77 16 119/72 96 09/07/19 22:51 36.6 C 81 19 123/79 96 Resident Activity Tracking Resident Involvement: Resident Care Provided Care Provided: Adult Hospital Medicine
--- NOTE | 2019-09-08 10:53 | Gastroenterology Progress Note ---
Date of Service September 08, 2019 Assessment & Plan (1) Ileus: Pt is a 34 y/o male, w recent incisional hernia repair on 08/31/2019 currently admitted for SBO vs post op ileus. 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 Last EGD/colonoscopy done 05/06/2019 w/o signs of pouchitis. He was taken back to OR by Dr. Orellana on 09/06 for ex lap, seroma clean out, and lysis of adhesion found on RLQ area which is causing SBO. NGT output bilious, no BMs or flatus yet. - KUB today - Keep NPO, NGT to LIS - IVF support - IV antibx per Surgery - Limit/avoid narcotics; may repeat Relistor 12mg subQ every 2 days for postop/narcotic ileus as long as no obstruction present - Continue Protonix 40mg IV BID - Monitor K for goal >4 to promote GI motility; replete prn - Surgery following - GI to sign off at this time; pls recall prn Admission and Anticipated Discharge Date Admission Date: September 04, 2019 Anticipated date of discharge: 09/06/19 Supervising Physician Co-Signing Physician Notes I have personally seen and examined the patient with JULIÁN Chua. Her note reflects my exam and findings. I agree with her impression and plan. Had lysis of adhesions today. Let us know if patient needs GI in future. Edu Montgomery M.D. Subjective Pt taken back to OR by Dr. Orellana for ex lap, seroma clean out, lysis of adhesion from RLQ area which was thought to be cause of SBO. NGT w 400mL output. Pt reports abd pain but no n/v. He isn't passing flatus of BM yet Review of Systems Review of Systems: All systems reviewed & are unremarkable except as noted in HPI & below Physical Exam Constitutional: WD/WN, vitals as above well groomed, cooperative and comfortable Eyes: PERRL, conjunctivae normal, anicteric sclerae ENMT: external ear and nose normal, oropharynx normal NGT w bilious outpt Respiratory: normal respiratory effort, lungs clear to auscultation no respiratory distress and does not use accessory muscles Auscultation: + diminished lung sounds Cardiovascular: RRR, no murmur, no edema Gastrointestinal (Abdomen): Abd binder in place, not removed during exam. Abd distended, TTP, BS hypoactive on mid upper abd area Skin: no rashes, warm and dry no jaundice Psychiatric: A+Ox3, euthymic affect Lymphatic: no lymphedema Results & Data ([facility]) Vital Signs (Past 12 Hours) Vital Signs Temp Pulse Resp BP BP Pulse Ox 09/08/19 07:15 36.5 C 62 16 125/75 95 09/08/19 03:07 36.4 C L 61 16 121/77 98 09/08/19 00:45 36.5 C 69 16 113/75 97 09/07/19 23:45 36.6 C 77 16 119/72 96 09/07/19 22:51 36.6 C 81 19 123/79 96
--- NOTE | 2019-09-08 11:29 | XRay Report ---
KUB CLINICAL HISTORY: Small bowel obstruction. FINDINGS: 2 AP, portable, supine abdominal radiographs are compared to study dated 09/07/2019 and alexey elated with abdominal CT dated 09/06/2019. Cholecystectomy clips are noted in the right upper quadrant . Abdominal skin clips are again seen. Several of these are new from yesterday. There is persistent g aseous distention of the small bowel loops which measure up to 5 cm in diameter. Suture material proj ects over the pelvis. The tip of an enteric tube projects over the stomach. There are no abnormal abd ominal calcifications. The bony structures appear intact. IMPRESSION: 1. There are new skin clips from yesterday. Correlation with the operative history will be required. 2. There is persistent gaseous distention of the small bowel loops. Although this could represent a p ostoperative ileus, recurrent or persistent small bowel obstruction is not excluded. Electronically signed by: Delmar Terrazas M.D. 09/08/2019 11:27 AM
[2019-09-09] MEDS: CEFAZOLIN 1000MG 1,000 MG/7.5 ML SYR IV SCH ×2 (01:46→10:18)
[2019-09-09] MEDS: HYDROmorphone INJ 1 MG/ML SYRINGE IV PRN ×2 (02:40→06:23)
[2019-09-09] MEDS: DiphenhydrAMINE HCL 50 MG/ML VIAL IV PRN ×5 (02:40→21:11)
[2019-09-09] MEDS: D5W AND 1/2NSS + 20MEQ KCL 20 MEQ/1,000 ML BAG IV SCH ×3 (04:12→22:36)
[2019-09-09 06:37] LABS: Basophils # (auto) 0.03 K/uL (0-0.2); Basophils % (auto) 0.3 %; Eosinophils # (auto) 0.17 K/uL (0-0.5); Eosinophils % (auto) 1.6 %; Hematocrit (blood only) 38.6 % (42-52); Hemoglobin 12.7 g/dL (14.0-18.0); Immature Granulocytes % (auto) 0.9 %; Lymphocytes # (auto) 2.15 K/uL (1.2-3.4); Lymphocytes % (auto) 20.3 %; Mean Corpuscular Hemoglobin 29.4 pg (25-34); Mean Corpuscular Hgb Conc 32.9 g/dL (32-36); Mean Corpuscular Volume 89.4 fL (80-100); Mean Platelet Volume 10.2 fL (7.4-10.4); Monocytes # (auto) 0.73 K/uL (0.11-0.59); Monocytes % (auto) 6.9 %; Neutrophils # (auto) 7.42 K/uL (1.4-6.5); Platelet Count 316 K/uL (130-400); RDW Coefficient of Variation 13.1 % (11.5-14.5); RDW Standard Deviation 42.6 fL (36.4-46.3); Red Blood Count 4.32 M/uL (4.7-6.1)
[2019-09-09] MEDS ORDERED: ACETAMINOPHEN 1,000 MG/100 ML VIAL IV PRN (06:51)
--- NOTE | 2019-09-09 06:56 | Communication Note ---
Date of Service: September 09, 2019 Was called to patient's room around 9 pm on 09/07 to evaluate patient after he had "sneezed out" his NG tube. It was no longer taped to his nose and he sneezed it up. In talking to patient, a lot of his ileus symptoms have resolved and he did have one bowel motion and has been passing gas. Exam with positive though hypoactive bowel sounds. Described symptoms of ileus/sbo and he will tell me if he experiences these. In the mean time since his gut appears to be becoming more active did not replace NG tube at this time.
[2019-09-09 07:09] LABS: Albumin Globulin Ratio 0.7 (0.9-2); Albumin Level 2.9 gm/dl (3.4-5.0); BUN Creatinine Ratio 15.5 (10-20); Bilirubin,Total 0.6 mg/dl (0.2-1); Calcium 8.8 mg/dl (8.5-10.1); Creatinine Clr Calc Pharmacy 185.1 ml/min; Est GFR (African American) 146.5; Est GFR (Non-African American) 126.4; Globulin 4.1 gm/dl (2.5-4.0); Potassium 3.5 mmol/L (3.5-5.1)
[2019-09-09] MEDS ORDERED: METHYLNALTREXONE BROMIDE 12 MG/0.6 ML VIAL SQ SCH (09:00)
--- NOTE | 2019-09-09 09:59 | Surgery Progress Note ---
Date of Service pt is doing better, passed BM X2, NG tube out last night, pt denies nausea, no vomiting, September 09, 2019 Assessment & Plan (1) Small bowel obstruction: pt is a 34 year-old male who was admitted to hospital for SBO after open repair incisional hernia, pt is not getting better over 4 days, still have abdominal pain, not passed gas or stool, IMP: SBO, S/P open repair incisional hernia with mesh Plan, I recommend to do exploratory laparotomy possible bowel resection or stoma, D/W benefits, risks and alternatives of the surgery, the risks - infection, bleeding, injury bowel, sepsis, recurrence, pt understood, he agrees with the surgery, I answered all questions, 09/08/2019 7:23AM POD 1 doing fine, continue treatment, wait bowel function recovery, I update about OR finding and the procedure pt had, pt understood, I answered all questions, will F/U 09/09/2019 9:58AM POD 2, doing fine, passed BM, full liquid diet, OOB may D/C home tomorrow if pt tolerated diet. Supervising Physician Co-Signing Physician Notes Resident Physician Supervision Note: I independently interviewed and examined the patient and verified the patten history and physical, reviewed labs and image studies, discussed the case with the resident Dr. Cook and agree with the findings and care plan. Subjective Patient reports feeling similar to yesterday prior to his operation. Seems more comfortable and conversant. Physical Exam Constitutional: WD/WN, vitals as above well developed and well nourished Eyes: PERRL, conjunctivae normal, anicteric sclerae ENMT: external ear and nose normal, oropharynx normal Neck: trachea midline, no thyromegaly Respiratory: normal respiratory effort, lungs clear to auscultation Cardiovascular: RRR, no murmur, no edema Rate/Rhythm: regular rate and regular rhythm Heart Sounds: normal S1 and normal S2 Gastrointestinal (Abdomen): normal bowel sounds, soft, nontender, no hepatosplenomegaly Percussion/Palpation: + abdomen tender and abdomen soft mild tenderness at incision site, no drainage from incision site, BS + Musculoskeletal: no cyanosis or clubbing, extremities motor strength 5/5 Skin: no rashes, warm and dry Neurologic: patellar DTR's 2+ bilat, sensation intact Psychiatric: Orientation: alert and oriented x 3 Results & Data Vital Signs (Past 12 Hours) Vital Signs Temp Pulse Resp BP BP Pulse Ox 09/09/19 07:48 37.0 C 87 18 119/76 90 09/08/19 23:20 36.6 C 72 16 110/67 90
[2019-09-09] MEDS ORDERED: POLYETHYLENE (MIRALAX) 17 GM PACK PO SCH (10:00)
[2019-09-09] MEDS: ONDANSETRON INJ 2 MG/ML 2 ML VIAL IV PRN (11:10)
--- NOTE | 2019-09-09 11:44 | Hospitalist Progress Note ---
Date of Service September 09, 2019 Assessment & Plan (1) Small bowel obstruction: Isidro is a 34yo M with a PMHx of Crohn's disease and prior bowel resection with anastomosis and a recent incisional hernia repair who was admitted for ileus/SBO. General Surgery performed exploratory laparotomy on 09/07/19 with lysis of adhesions and relief of mechanical obstruction. Small Bowel Obstruction - POD 2 of ex-lap with lysis of adhesions and manual removal of obstruction - abdomen still distended, but with + BS; patient appears more comfortable on exam - NG tube expelled overnight; will not replace given clinical improvement - full liquid diet, advance as tolerated - protonix 40mg, IV BID - Pain control with Tylenol 1g, IV, Q8 and hydromorphone 0.5mg IV PRN. minimize opioid use to prevent worsening of ileus - potassium at 3.5 today, will order replacement with goal > 4 per GI - continue IV antibiotics, per surgery - Zofran 4mg Q6H PRN for nausea - BMP daily - Relistor SQ q2day - Surgery following. Appreciate recs Crohn's Disease - s/p colectomy - not on an immunosuppressive therapy; has medical marijuana card - No acute change in management FEN/GI: Full Liquid diet PPx: Lovenox 40 Code: Full Dispo: Med/Surg Admission and Anticipated Discharge Date Admission Date: September 04, 2019 Anticipated date of discharge: 09/06/19 Supervising Physician Co-Signing Physician Notes Resident Physician Supervision Note: I independently interviewed and examined the patient and verified the patten history and physical, reviewed labs and image studies, discussed the case with the resident Dr. Cook and agree with the findings and care plan. Subjective Overnight patient sneezed and NG was expelled out his nose. Since patient had passed two BMs and felt an improvement in his distention, night team decided to leave tube out. Feeling okay this morning. Review of Systems Gastrointestinal: + abdominal pain and + bloating Physical Exam Constitutional: WD/WN, vitals as above Eyes: + anicteric sclerae ENMT: external ear and nose normal, oropharynx normal Neck: normal visual inspection and trachea midline Respiratory: normal respiratory effort, lungs clear to auscultation Cardiovascular: RRR, no murmur, no edema Heart Sounds: normal S1 and normal S2 Extremities: no edema Gastrointestinal (Abdomen): Inspection/Auscultation: + abdomen distended, normal bowel sounds and + abdominal surgical incision (RLQ, site of recent hernia repair) Percussion/Palpation: + abdomen tender and abdomen soft; no guarding Skin: no rashes, warm and dry Psychiatric: A+Ox3, euthymic affect Results & Data Results & Data ([facility]) Vital Signs (Past 12 Hours) Vital Signs Temp Pulse Resp BP Pulse Ox 09/09/19 07:48 37.0 C 87 18 119/76 90 Resident Activity Tracking Resident Involvement: Resident Care Provided Care Provided: Adult Hospital Medicine
[2019-09-09] MEDS: POTASSIUM CHLORIDE / WTR 10 MEQ/100 ML PLCT IV SCH ×6 (13:53→19:26)
[2019-09-09] MEDS: PANTOprazole 40 MG in SYRINGE 0 ML IV SCH (16:52)
[2019-09-09] MEDS: OXYCODONE/ACETAMINOPHEN 5mg/325mg TAB PO PRN ×2 (17:14→22:37)
[2019-09-10] MEDS: DiphenhydrAMINE HCL 50 MG/ML VIAL IV PRN ×3 (01:15→10:18)
[2019-09-10] MEDS: OXYCODONE/ACETAMINOPHEN 5mg/325mg TAB PO PRN ×2 (02:10→06:49)
[2019-09-10] MEDS: HYDROmorphone INJ 1 MG/ML SYRINGE IV PRN (02:45)
[2019-09-10] MEDS: D5W AND 1/2NSS + 20MEQ KCL 20 MEQ/1,000 ML BAG IV SCH (07:59)
--- NOTE | 2019-09-10 08:04 | Surgery Progress Note ---
Date of Service doing better, no significant abdominal pain, he tolerated full liquid diet, no nausea,no vomiting, no fever, passed BM last night. September 10, 2019 Assessment & Plan (1) Small bowel obstruction: pt is a 34 year-old male who was admitted to hospital for SBO after open repair incisional hernia, pt is not getting better over 4 days, still have abdominal pain, not passed gas or stool, IMP: SBO, S/P open repair incisional hernia with mesh Plan, I recommend to do exploratory laparotomy possible bowel resection or stoma, D/W benefits, risks and alternatives of the surgery, the risks - infection, bleeding, injury bowel, sepsis, recurrence, pt understood, he agrees with the surgery, I answered all questions, 09/08/2019 7:23AM POD 1 doing fine, continue treatment, wait bowel function recovery, I update about OR finding and the procedure pt had, pt understood, I answered a ll questions, will F/U 09/09/2019 9:58AM POD 2, doing fine, passed BM, full liquid diet, OOB may D/C home tomorrow if pt tolerated diet. 09/10/2019 7:59AM doing fine, pt can de discharged home today, instruction : he can take a shower on 09/11/2019, no heavy lifting >25 LBS for 4 weeks, no driving while taking pain medicine. discharge with percocet for pain control, F/U ma in 2 weeks, , Thanks Hospitalist and surgeon for take care this patient. Supervising Physician Co-Signing Physician Notes Resident Physician Supervision Note: I independently interviewed and examined the patient and verified the patten history and physical, reviewed labs and image studies, discussed the case with the resident Dr. Cook and agree with the findings and care plan. Subjective Overnight patient sneezed and NG was expelled out his nose. Since patient had passed two BMs and felt an improvement in his distention, night team decided to leave tube out. Feeling okay this morning. Physical Exam Constitutional: WD/WN, vitals as above well developed and well nourished Eyes: PERRL, conjunctivae normal, anicteric sclerae ENMT: external ear and nose normal, oropharynx normal Neck: trachea midline, no thyromegaly Respiratory: normal respiratory effort, lungs clear to auscultation Cardiovascular: RRR, no murmur, no edema Rate/Rhythm: regular rate and regular rhythm Heart Sounds: normal S1 and normal S2 Gastrointestinal (Abdomen): normal bowel sounds, soft, nontender, no hepatosplenomegaly Percussion/Palpation: abdomen soft soft, mild tenderness on incision site, no rebound pain, no distend, the incision intact, no redness, no drainage. BS+ Musculoskeletal: no cyanosis or clubbing, extremities motor strength 5/5 Skin: no rashes, warm and dry Neurologic: patellar DTR's 2+ bilat, sensation intact Psychiatric: Orientation: alert and oriented x 3 Results & Data Vital Signs (Past 12 Hours) Vital Signs Temp Pulse Resp BP Pulse Ox 09/10/19 07:12 37.1 C 67 16 116/76 92 09/10/19 02:50 36.7 C 92 H 20 138/74 94 09/09/19 23:29 36.9 C 82 18 127/83 93
[2019-09-10] MEDS ORDERED: PANTOprazole 40 MG TAB PO SCH (09:00)
--- NOTE | 2019-09-10 09:56 | Discharge Summary ---
Date of Service September 10, 2019 Admission HPI Per Admitting Provider Isidro Torres is a 34yo C male with history of Crohns Disease s/p total colectomy with anastamosis. Patient had an incisional hernia s/p open repair performed on 08/31/[address] Orellana. Surgery went well with no immediate complications identified. He was discharged home and was doing fairly well. Over the past 48 hours he has had increase in RLQ abdominal pain as well as post-prandial nausea and vomiting. He denies BM or passage of flatus for the past 36 hours. He presented to the ER at [facility]. CT of the abdomen was obtained which confirmed SBO. Patient was subsequently transferred to [facility] for Surgical evaluation. Patient presently complaining of RLQ abdominal pain as well as some itching at the site of his tape. Also with subjective fevers and chills. No additional complaints at this time. He denies CP/SOB/cough. No sick contacts, no recent travel, no contact with individuals positive for SARS-CoV-2. Admission Exam Per Admitting Provider General: patient resting supine, in mild distress secondary to pain, non-toxic in appearance, AA&O x 4 Skin: warm, dry, abdominal surgical site with dressing in place, c/d/i, wound well approximated with etta in place, no bleeding/drainage/dehiscence or erythema HEENT: NC/AT, PERRL, EOMI, anicteric sclera, conjunctiva without injection, external ear normal to inspection and nontender, nares patent, slightly dry mucus membranes, dentition intact, no oropharyngeal lesions, neck supple, trachea midline, no LAD, no thyromegaly, no JVD Heart: +S1/S2, regular, no m/r/g Lungs: equal air entry bilaterally, no rales/rhonchi/wheezes Abd: Diminished bowel sounds, soft, +tenderness in RLQ. surgical site as above, no masses/organomegaly/ascites Ext: warm, 2+ pulses in UE/LE bilaterally, no clubbing/cyanosis or edema Neuro: nonfocal, patient AA&O x 4, speech intact, no facial droop, moving all extremities on command with equal strength 5/5 Principal Diagnosis small bowel obstruction Discharge Exam Constitutional WD/WN, vitals as above Eyes + anicteric sclerae ENMT external ear and nose normal, oropharynx normal Neck normal visual inspection and trachea midline Respiratory normal respiratory effort, lungs clear to auscultation Cardiovascular RRR, no murmur, no edema Heart Sounds: normal S1 and normal S2 Extremities: no edema Gastrointestinal (Abdomen) Inspection/Auscultation: + abdomen distended, normal bowel sounds and + abdominal surgical incision (RLQ, site of recent hernia repair) Percussion/Palpation: + abdomen tender and abdomen soft; no guarding Skin no rashes, warm and dry Psychiatric A+Ox3, euthymic affect Discharge Data Allergies Allergy/AdvReac Type Severity Reaction Status Date / Time mushroom Allergy Severe ANAPHYLAXIS Verified 08/25/19 11:33 adhesive Allergy Intermediate Hives WITH Verified 08/25/19 11:33 ANY TAPE/BANDAIDS Consultations 09/04/19 19:45 Consult General Surgery Routine 09/04/19 20:09 Radiology Transfer Of Images Routine 09/07/19 07:48 Consult Gastroenterology Routine Procedures Performed Operation Date: 09/07/19 13:40 Actual Procedures p Exploratory Laparotomy, Lysis of Adhesions(Not Applicable) - Lorena Orellana MD Ordered Studies 09/06/19 08:48 CT abd pelvis oral and IV con Urgent Hospital Course (1) Small bowel obstruction: Isidro is a 34yo M with a PMHx of Crohn's disease and prior bowel resection with anastomosis and a recent incisional hernia repair who was admitted for ileus/SBO. General Surgery performed exploratory laparotomy on 09/07/19 with lysis of adhesions and relief of mechanical obstruction. Post op Ileus/Small Bowel Obstruction s/p recent hernia repair - SBO Visualized on cat scan of abdomen on admission. Patient's risk factors include Crohn's disease and multiple abdominal surgeries (recent ventral hernia repair, prior colectomy with anastomosis). - General surgery recommended an exploratory laparotomy given recent hernia repair and post-operative seroma formation. Following the ex-lap, patient's abdomen was still distended, but with + BS, and he clinically appeared more comfortable on exam. He passed several BMs and tolerated a liquid diet before being discharged. Crohn's Disease - s/p colectomy and anastomosis - inflammatory state likely contributed to SBO - not on an immunosuppressive therapy; has medical marijuana card - No acute change in management Right Kidney Lesion - Incidental finding noted on CT-Ab. Characterized as a 1.9 cm hypodense lesion within the upper pole the right kidney, not clearly representing a simple cyst. Outpatient items to do: Follow-up nonemergent renal ultrasound recommended for further evaluation. (2) Crohns disease: (3) Lesion of right [facility] cro[facility] kidney: Total Time Total Time Spent Total Time Spent (In Minutes): see attending attestation Discharge Plan Discharge Items Patient Disposition: Home - Self-Care Reason For Visit: SMALL BOWEL OBSTRUCTION VS ILEUS Discharge Diagnosis: Small Bowel Obstruction Activity: Resume your previous activity Non-emergency contact: Primary Care Provider Call non-emergency contact if: your symptoms worsen and your pain is not controlled Follow-up/Referrals: Jamison Mosley [Primary Care Provider] - Lorena Orellana MD [Physician] - 09/23/19 11:00 am Diet: Heart Healthy Addtl Attending Provider Instructions: You were hospitalized at [facility] for abdominal pain which was found to be due to a small bowel obstruction. You have had bowel obstructions in the past. The cause of your obstruction was found to be adhesions, or scar tissue within the belly. Scar tissue forms in the belly anytime the gut is surgically manipulated, and from generalized inflammation. Your recent hernia repair, in addition to your previous bowel resection and anastomosis procedure, collectively contributed to your adhesion formation. Having crohns disease also exposes your gut to high levels of inflammation, which possibly contributed to formation of the obstruction as well. General surgery was consulted and Dr. Orellana, the same surgeon who performed your hernia repair, took you back to the operating room and manually removed the adhesions. Your abdominal pain, swelling and nausea improved after this procedure. You tolerated a full liquid diet by the time of discharge. We recommend you continue to progress your diet slowly. Ie eat soft items and see how you do before moving on to solid food with dense textures. If you experience worsening belly pain or nausea after eating, that means you advanced your diet quicker than your body was ready to handle. If this occurs, take a step back - return to a liquid diet and reassess. You may use over the counter pain medications such as advil and tylenol for discomfort. While stronger pain medications such as narcotics (percocet, oxycodone, for example) may make you comfortable, they slow down the bowels, which is counterproductive for patients with bowel obstructions. Thus, we recommend you avoid narcotics if possible. A small lesion (1.9 cm) on your right kidney was incidentally visualized on your abdominal cat scan. We recommend you have a follow-up ultrasound to assess the size and appearance. Please follow up with your primary care provider within one week of discharge. Pending Studies at Discharge: No Stand-Alone Forms: [facility], Opioid Pain Management, Smoking Cessation Medications and DC Order Prescriptions: Continued ondansetron HCl [Zofran] 4 mg tablet 4 mg PO Q6H PRN (Reason: nausea and vomiting) Qty: 20 RF: 0 Medical Marijuana inhalation RF: 0 oxycodone-acetaminophen [Percocet] 5-325 mg tablet 1 tab PO Q6H PRN (Reason: pain) Qty: 30 RF: 0 oxycodone-acetaminophen [Percocet] 5-325 mg tablet 1 tab PO Q6H PRN (Reason: pain) Qty: 30 RF: 0 Discharge Orders: Discharge Order (Routine); Ordered 09/10/19 Ordered By: Jeanine Weiss/Other Patient Handouts: Low-Fiber Diet, DVT Post Op Prevention Admission Data Admit Date/Time: 09/04/19 18:35 Attending Provider: Sharmila Abreu Admit Provider: Jennifer Sepulveda Primary Care Provider: Jamison Mosley Other Providers: Jennifer Sepulveda ; Rahul Tracy ; Lorena Orellana ; Fei Abarca ; Natalya Mccarthy ; Al Yeung ; Ritu Rojas ; Jamison Wilcox ; Rito Kinney ; Young Patel ; Ivory Douglas ; Garfield Hunter ; Edu Montgomery ; Leigh Galan ; Nanette Hartley ; Joan Arnold ; Sheila Carrion ; Ebonie Murray Other Interventions: Discharge Summary Assessment (RN) Last Done: 09/10/19 11:38 DC Date/Time DO NOT enter until pt leaves facility: 09/10/19 12:53 Supervising Physician Co-Signing Physician Notes Resident Physician Supervision Note: I independently interviewed and examined the patient and verified the patten history and physical, reviewed labs and image studies, discussed the case with the resident Dr. Cook and agree with the findings and care plan. Resident Activity Tracking Resident Involvement: Resident Care Provided Care Provided: Adult [facility] Medicine
[2019-09-10] MEDS: HEPARIN 100 UNIT/ML 5ML FLUSH FLUSH PRN (11:22)
== END 2019-09-10 12:53 | disposition home or self-care (01) | DRG 336 ==
LOC: SUATTDRO 18:35 → 2W 18:35 → 3W 09-05 04:00